=== PATIENT | female | born 1935 | race Caucasian/White ===

== ENCOUNTER 2019-05-14 14:13 | Outpatient (RCR) | payer SELFPAY ==
--- NOTE | 2019-01-22 08:52 | PCCPR ---
Pt will not be in attendance for ph3 01/22 or 01/25 due to having a cold and on a Z pack this week.
== END 2019-12-12 14:24 | disposition home or self-care (01) ==
LOC: ANHCPRIII 14:13
PROVIDERS: PCP Family Medicine; Visit Provider Internal Medicine Cardiovascular Disease
DX: Z95.2 Presence of prosthetic heart valve (principal); I48.20 Chronic atrial fibrillation, unspecified
CPT/HCPCS: 99199

== ENCOUNTER → 2019-10-11 13:21 | Outpatient (CLI) | payer MEDICARE, OTHER, SELFPAY ==
--- NOTE | ~2019-10-11 | MM_ITS ---
EXAMINATION: MM screening alexey BI w leonela HISTORY: Screening TECHNIQUE: Craniocaudal and mediolateral oblique 3-D tomosynthesis images were obtained and synthetic 2-D images were generated. CAD analysis was submitted and interpreted. COMPARISON: Comparison to multiple prior studies sequentially, with oldest reviewed study dated 03/15. BREAST PARENCHYMAL COMPOSITION: There are scattered areas of fibroglandular density. FINDINGS: There is no evidence of suspicious mass, calcification, or architectural distortion to sugg est malignancy in either breast. There has been no suspicious interval change. IMPRESSION: 1. No mammographic evidence of malignancy. 2. Recommend routine screening mammography in one year. BI-RADS Category 1: Negative Reviewed, dictated and finalized at location A.
== END ==
PROVIDERS: Visit Provider Obstetrics & Gynecology
DX: Z12.31 Encounter for screening mammogram for malignant neoplasm of breast (principal)
CPT/HCPCS: 77063; 77067

== ENCOUNTER 2020-03-24 13:30 | Outpatient (RCR) | payer MEDICARE, OTHER, SELFPAY ==
--- NOTE | 2020-03-23 13:18 | PC.NURSE ---
Spoke with patient about Bamlanivimab treatment and she has no questions about treatment. Patient's had treatment last week.
[2020-03-24] MEDS: diphenhydrAMINE HCl CAP 25 MG CAPSULE PO (13:33)
[2020-03-24] MEDS: FAMOTIDINE 20 MG TABLET PO (13:33)
[2020-03-24] MEDS: ACETAMINOPHEN 325 MG TABLET 650 MG PO (13:33)
[2020-03-24 14:33] VITALS: BP 94/49; PULSE 107; RESP 20; TEMP 37.7; O2SAT 93
--- NOTE | 2020-03-24 14:50 | PC.NURSE ---
1417 Spoke with patient's spouse about plan of care. Patient's is to take the patient directly to [facility] Emergency Room. Patient is to be evaluated at emergency room per Dr Estrada. Patient's spouse verbalized understanding. 1420 Patient's daughter was called. Voicemail was left to return a call to the [facility]. Patient requested that the daughter was notified. 1421 Report given to Joy Emergency Room RN. PIV left in patient's left hand (patient was a difficult stick). 1450 Patient was picked up by her spouse and going directly to Emergency Room
== END 2020-04-02 09:16 ==
LOC: AMCINF 13:30
PROVIDERS: PCP Family Medicine; Visit Provider Family Medicine
DX: U07.1 COVID-19 (principal); J12.82 Pneumonia due to coronavirus disease 2019; J93.9 Pneumothorax, unspecified; J96.01 Acute respiratory failure with hypoxia; I10 Essential (primary) hypertension; I48.91 Unspecified atrial fibrillation; E78.5 Hyperlipidemia, unspecified; R57.9 Shock, unspecified
CPT/HCPCS: 99203; 99213; A9270; G0463

== ENCOUNTER 2020-03-24 14:59 | Inpatient (IN) | payer MEDICARE, OTHER, SELFPAY ==
[2020-03-24] VITALS (7 sets, daily range): BP systolic 98–131; BP diastolic 48–72; PULSE 72–106; RESP 18–22; TEMP 36.3–36.9; O2SAT 68–95
--- NOTE | ~2020-03-24 | XR_ITS ---
EXAMINATION: XR chest 1V portable EXAM DATE: 04/01/2020 05:54 INDICATION: COVID-19 , acute hypoxic respiratory failure TECHNIQUE: Portable AP frontal chest x-ray was obtained. Comparison is made to prior examination from 03/31. FINDINGS: Endotracheal tube tip is 6 centimeters above the mars. There is a nasogastric tube seen with tip collimated off the study, but below the left hemidiaphragm. There is a right-sided PICC line with tip projecting over the cavoatrial junction. Moderate to large amount of bilateral infection and/or edema. Cardiac valve/stent. There are no siza ble pleural effusions. There is small right apical pneumothorax. The cardiomediastinal silhouette is prominent but magnified on this AP technique. The bones and soft tissues are unremarkable. Airspace disease not significantly changed. Difficult to determine change in the small right apical p neumothorax due to overlying sheets, equipment. IMPRESSION: 1. Small right apical pneumothorax. 2. Stable airspace disease and other findings as above. Reviewed, dictated and finalized at location A. S REPRESENTATIVE JEWELRY
--- NOTE | ~2020-03-24 | XR_ITS ---
EXAMINATION: XR abdomen NG/feed tube insert EXAM DATE: 03/28/2020 13:52 INDICATION: Orogastric tube insertion. TECHNIQUE: Frontal projection(s) of the abdomen for interpretation. Comparison is made to prior exami nation from 02/20/2015. FINDINGS: There is severe lumbar levoscoliosis. Feeding tube tip and side-port both project over dis tended gastric bubble, expected position. Extensive left-sided, moderate right basilar acute airspace disease. Distended stomach and colon, nonspecific bowel gas pattern. Patient had large amount of col onic stool and gas on previous examination IMPRESSION: 1. Feeding tube in position. 2. Distended stomach and colon, could be constipation. 3. Extensive airspace disease. Reviewed, dictated and finalized at location A. DROGENATION OPERATOR
--- NOTE | ~2020-03-24 | XR_ITS ---
EXAMINATION: XR chest 1V portable EXAM DATE: 04/03/2020 06:30 INDICATION: Acute respiratory failure, COVID-19 pneumonia. Pneumothorax. TECHNIQUE: Portable AP frontal chest x-ray was obtained. Comparison is made to prior examination from 04/02/2020. FINDINGS: Endotracheal tube tip is 6 centimeters above the mars. There is a nasogastric tube seen with tip collimated off the study, but below the left hemidiaphragm. There is a right-sided PICC line with tip projecting over the cavoatrial junction. Right-sided chest tube is in position with resolution of previously seen right pneumothorax. There is a small to moderate left-sided pneumothorax, pleural reflection identified and indicated. Moderate t o large amount of bilateral infection and/or edema. Cardiac valve/stent. There are no sizable pleura l effusions. The cardiomediastinal silhouette is prominent but magnified on this AP technique. Th e bones and soft tissues are unremarkable. Interval development of the left-sided pneumothorax compared to yesterday. The right-sided pneumothor ax has been treated with chest tube and is resolved. Airspace disease not significantly changed. IMPRESSION: 1. Development of small to moderate left pneumothorax. 2. Resolution of previously seen right pneumothorax following chest tube placement. 3. Extensive airspace disease and other findings as above. I discussed left-sided pneumothorax with ICU nurse Syed at 04/03/2020 06:57 LABOR ARBITRATOR. Reviewed, dictated and finalized at location A. R ARBITRATOR IMPRESSION: 1. Development of small to moderate left pneumothorax. 2. Resolution of previously seen right pneumothorax following chest tube place ment. 3. Extensive airspace disease and other findings as above. I discussed left-sided pneumothorax with ICU nurse Syed at 04/03/2020 06:57 LABOR ARBITRATOR .
--- NOTE | ~2020-03-24 | XR_ITS ---
EXAMINATION: XR chest 1V portable DATE: 03/31/2020 10:32 INDICATION: Right pneumothorax. TECHNIQUE: A single frontal view of the chest was obtained. COMPARISON: Chest single view at 5:23 AM FINDINGS: There are interstitial airspace opacities in all lung zones bilaterally with relative spari ng of right upper lobe. No pleural effusion. There is a small right pneumothorax. The heart size is n ormal. There are changes of aortic valve replacement. The endotracheal tube tip is 7.1 m above the ca nilesh. The nasogastric tube tip is beyond the inferior margin of the radiograph, but at least to the s tomach. A right upper extremity peripherally inserted central venous catheter (PICC) is seen with tip in the superior vena cava. IMPRESSION: 1. Stable small right pneumothorax. 2. Diffuse lung disease with improvement in right upper lobe, consistent with COVID-19 pneumonia vers us acute respiratory distress syndrome (ARDS). Reviewed, dictated and finalized at location A. DATA LEAD IMPRESSION: 1. Stable small right pneumothorax. 2. Diffuse lung disease with improvement in right upper lobe, consistent with C OVID-19 pneumonia versus acute respiratory distress syndrome (ARDS).
--- NOTE | ~2020-03-24 | XR_ITS ---
XR chest 1V portable DATE: 03/31/2020 17:15 INDICATION: Low oxygen saturation TECHNIQUE: Portable AP chest on 03/31/2020 at 1711 hours COMPARISON: 03/31/2020 portable AP chest at 1022 hours Serial radiographs dating back to 08/25/2015 FINDINGS: A nasogastric tube is present in the body of the stomach. Endotracheal tube is approximatel y 8.3 cm above mars; ideal range is 2-5 cm. PICC catheter tip overlies the superior vena cava. Status post aortic valve replacement. Cardiomegaly. Aortic calcification. There is leftward shift of the heart mediastinum consistent with volume loss of the left lung. There are extensive bilateral infiltrates throughout both lungs, except for relative sparing of the right u pper lung. The infiltrates are greatest in the lower lung zones. Infiltrates are increased since 03/28/2020 and 03/31/2020. No pleural effusion or pneumothorax is evident. IMPRESSION: Increased bilateral infiltrates since 03/31/2020, greatest in lower lungs. Differential di agnosis includes pulmonary edema, pneumonia. Reviewed, dictated and finalized at location A. AGE WINDER IMPRESSION: Increased bilateral infiltrates since 03/31/2020, greatest in lower lungs. Differential diagnosis includes pulmonary edema, pneumonia.
--- NOTE | ~2020-03-24 | XR_ITS ---
EXAMINATION: XR chest ET placement INDICATION: Endotracheal tube placement TECHNIQUE: Portable AP chest at 1333 hours COMPARISON: 03/28/2020 FINDINGS: An endotracheal tube has been inserted which ends 5.3 cm above the mars. The nasogastric tube has been inserted which is followed as far as the stomach. Its tip is beyond the inferior margin of the radiograph. Diffuse lung disease is unchanged. There is stable cardiomegaly. There are likely changes of endoluminal aortic valve replacement. IMPRESSION: 1. Endotracheal and nasogastric tube insertion, otherwise no significant change. Reviewed, dictated and finalized at location A. UNICATIONS ASSOCIATE IMPRESSION: 1. Endotracheal and nasogastric tube insertion, otherwise no significant change .
--- NOTE | ~2020-03-24 | XR_ITS ---
EXAMINATION: XR chest 1V portable INDICATION: Shortness of breath and cough TECHNIQUE: Portable AP chest at 1550 hours COMPARISON: 09/20/2017 FINDINGS: There are diffuse opacities throughout all lung zones, left greater than right. No pleural effusion or pneumothorax is identified. Cardiomegaly is noted. There appear to be changes of endolumi nal aortic valve replacement. There is no pneumothorax. IMPRESSION: 1. Diffuse lung disease, left worse than right, consistent with pneumonia and/or pulmonary edema. Reviewed, dictated and finalized at location A. PRINT CUTTER IMPRESSION: 1. Diffuse lung disease, left worse than right, consistent with pneumonia and/o r pulmonary edema.
--- NOTE | ~2020-03-24 | XR_ITS ---
EXAMINATION: XR chest-chest tube insert/pos DATE: 04/02/2020 14:39 INDICATION: Right pneumothorax status post chest tube placement. TECHNIQUE: A single frontal view of the chest was obtained on 2 radiographs. COMPARISON: Chest single view at 5:30 AM FINDINGS: The patient is rotated to her left. There is a diffuse interstitial pattern in the lungs. T here are airspace opacities in the mid and lower lung zones, worst at the left lung base. There is no pleural effusion. There is a small right pneumothorax. There is a right-sided chest tube with tip at the lung apex. The heart size is normal. There are changes of aortic valve replacement. The endotrac heal tube tip is 7.1 cm above the mars. A right upper extremity peripherally inserted central venou s catheter (PICC) is seen with tip in the superior vena cava. The nasogastric tube tip is in the stom ach. IMPRESSION: 1. Small right pneumothorax with improvement status post chest tube placement. 2. Diffuse lung disease with slight improvement, consistent with pulmonary edema versus pneumonia. Reviewed, dictated and finalized at location A. ING MACHINE OPERATOR HELPER IMPRESSION: 1. Small right pneumothorax with improvement status post chest tube placement. 2. Diffuse lung disease with slight improvement, consistent with pulmonary macy a versus pneumonia.
--- NOTE | ~2020-03-24 | XR_ITS ---
EXAMINATION: XR chest 1V portable INDICATION: COVID 19 pneumonia TECHNIQUE: Portable AP chest at 0515 hours COMPARISON: 03/27/2020 FINDINGS: Diffuse opacities throughout the left lung and opacities in the right mid and lower lung zo barrett persist without significant change. There is no pleural effusion or pneumothorax. Cardiomegaly is noted. There appear to be changes of endoluminal aortic valve replacement. IMPRESSION: 1. Stable diffuse lung disease, left worse than right, consistent with pneumonia and/or pulmonary leeroy ma and/or acute respiratory distress syndrome (ARDS). Reviewed, dictated and finalized at location A. ORT BAGGAGE SCREENER IMPRESSION: 1. Stable diffuse lung disease, left worse than right, consistent with pneumoni a and/or pulmonary edema and/or acute respiratory distress syndrome (ARDS).
--- NOTE | ~2020-03-24 | XR_ITS ---
EXAMINATION: XR chest PICC line EXAM DATE: 03/28/2020 15:42 INDICATION: PICC line placement. Pneumonia. TECHNIQUE: Portable AP frontal chest x-ray was obtained. Comparison is made to prior examination from 03/27. FINDINGS: Endotracheal tube tip is 5-6 centimeters above the mars. There is a nasogastric tube see n with tip collimated off the study, but below the left hemidiaphragm. There is a right-sided PICC li ne with tip projecting over the cavoatrial junction. There is extensive left-sided and moderate right basilar pneumonia and/or edema. Right upper lung zon e is relatively clear. The cardiomediastinal silhouette is prominent but magnified on this AP techniq ue. Cardiac valve replacement/stent. Mild hyperinflation. There is no pneumothorax suspected. Calcifi ed recess is excluded from exam. IMPRESSION: PICC line in position. Bilateral pneumonia or edema, extensive on the left. Reviewed, dictated and finalized at location A. TING DEMONSTRATOR IMPRESSION: PICC line in position. Bilateral pneumonia or edema, extensive on t he left.
--- NOTE | ~2020-03-24 | XR_ITS ---
EXAMINATION: XR chest-chest tube insert/pos EXAM DATE: 04/03/2020 11:13 INDICATION: Left chest tube insertion.Respiratory failure. COVID pneumonia. TECHNIQUE: Portable AP frontal chest x-ray was obtained. Comparison is made to prior examination from earlier 04/03. FINDINGS: Endotracheal tube tip is 6 centimeters above the mars. There is a nasogastric tube seen with tip collimated off the study, but below the left hemidiaphragm. There is a right-sided PICC line with tip projecting over the cavoatrial junction. There are bilateral chest tubes. Interval insertion of a left-sided chest tube with some redundancy but improvement in the left pneumo thorax which is now small, pleural reflection identified medially and inferiorly. Right-sided chest t ube is in position and no evidence of right pneumothorax. Moderate to large amount of bilateral infection and/or edema, not significantly changed. Cardiac valv e/stent. There are no sizable pleural effusions. The cardiomediastinal silhouette is prominent but magnified on this AP technique. There are no osteoblastic or osteolytic lesions identified. Airspace disease not significantly changed. IMPRESSION: 1. Improvement in left pneumothorax following chest tube insertion. 2. Extensive airspace disease and other findings as above. Reviewed, dictated and finalized at location A. EL POST OFFICER
--- NOTE | ~2020-03-24 | XR_ITS ---
EXAMINATION: XR chest 1V portable EXAM DATE: 03/30/2020 06:06 INDICATION: COVID-19 , acute hypoxic respiratory failure. TECHNIQUE: Portable AP frontal chest x-ray was obtained. Comparison is made to prior examination from 03/29/2020. FINDINGS: Endotracheal tube tip is 7 centimeters above the mars. This could be safely advanced 2 c m. There is a nasogastric tube seen with tip collimated off the study, but below the left hemidiaphra gm. There is a right-sided PICC line with tip projecting over the cavoatrial junction. Moderate to large amount of bilateral infection and/or edema. Cardiac valve/stent. There are no siza ble pleural effusions. There is no pneumothorax suspected. The cardiomediastinal silhouette is pr ominent but magnified on this AP technique. The bones and soft tissues are unremarkable. Moderate to large amount of airspace disease is unchanged. IMPRESSION: 1. Line and tube(s) in position. 2. Stable airspace disease and other findings as above. Reviewed, dictated and finalized at location A. HER TOGGLER
--- NOTE | ~2020-03-24 | XR_ITS ---
EXAMINATION: XR chest 1V portable INDICATION: Acute respiratory failure, COVID 19 pneumonia TECHNIQUE: Portable AP chest at 0511 hours COMPARISON: 03/28/2020 FINDINGS: The endotracheal tube ends approximately 7.0 cm above the mars. The nasogastric tube is f ollowed as far as the stomach. Its tip is beyond the inferior margin of the radiograph. A right upper extremity PICC ends with its tip at the superior cavoatrial junction. There are diffuse opacities th roughout all lung zones, left greater than right, which have not significantly changed. No definite p leural effusion or pneumothorax is identified. There is stable cardiomegaly. Changes of likely endolu david aortic valve replacement are noted. IMPRESSION: 1. Stable diffuse lung disease, consistent with pneumonia and/or pulmonary edema and/or acute respira tory distress syndrome (ARDS). Reviewed, dictated and finalized at location A. ER SET UP OPERATOR IMPRESSION: 1. Stable diffuse lung disease, consistent with pneumonia and/or pulmonary macy a and/or acute respiratory distress syndrome (ARDS).
--- NOTE | ~2020-03-24 | XR_ITS ---
EXAMINATION: XR chest 1V portable EXAM DATE: 03/26/2020 05:55 INDICATION: COVID pneumonia. TECHNIQUE: Portable AP frontal chest x-ray was obtained. Comparison is made to prior examination from 03/24/2020. FINDINGS: There is extensive left-sided and moderate right basilar pneumonia and/or edema. Right uppe r lung zone is relatively clear. The cardiomediastinal silhouette is prominent but magnified on this AP technique. Mild hyperinflation. There is no pneumothorax suspected. There are no pleural effusions . There are no suspicious marrow signal abnormalities. IMPRESSION: Bilateral pneumonia or edema, extensive on the left. Reviewed, dictated and finalized at location A. ENG
--- NOTE | ~2020-03-24 | XR_ITS ---
EXAMINATION: XR chest 1V portable EXAM DATE: 03/27/2020 05:58 INDICATION: COVID pneumonia TECHNIQUE: Portable AP frontal chest x-ray was obtained. Comparison is made to prior examination from 03/26, 03/24. FINDINGS: There is extensive left-sided and moderate right basilar pneumonia and/or edema. Right uppe r lung zone is relatively clear. The cardiomediastinal silhouette is prominent but magnified on this AP technique. Mild hyperinflation. There is no pneumothorax suspected. There are no pleural effusions . There are no osseous abnormalities identified. Accounting for differences in technique, there is no significant interval change. IMPRESSION: Bilateral pneumonia or edema, extensive on the left. Reviewed, dictated and finalized at location A. QUOTING OPERATOR
--- NOTE | ~2020-03-24 | XR_ITS ---
EXAMINATION: XR chest 1V portable EXAM DATE: 03/31/2020 06:21 INDICATION: COVID-19 , acute hypoxic respiratory failure. TECHNIQUE: Portable AP frontal chest x-ray was obtained. Comparison is made to prior examination from 03/30. FINDINGS: Endotracheal tube tip is 6 centimeters above the mars. There is a nasogastric tube seen with tip collimated off the study, but below the left hemidiaphragm. There is a right-sided PICC line with tip projecting over the cavoatrial junction. Moderate to large amount of bilateral infection and/or edema. Cardiac valve/stent. There are no siza ble pleural effusions. There is small right apical pneumothorax. The cardiomediastinal silhouette is prominent but magnified on this AP technique. The bones and soft tissues are unremarkable. Probable developing small right apical pneumothorax. Scattered IMPRESSION: 1. Probable developing small right apical pneumothorax. 2. Stable airspace disease and other findings as above. I spoke with ICU nurse Syed at 6:33 a.m., Dr. Maycol Robertson MD will be arriving momentarily. I recommended him reviewed the x-ray. Reviewed, dictated and finalized at location A. GAS AND PIPE TESTER IMPRESSION: 1. Probable developing small right apical pneumothorax. 2. Stable airspace disease and other findings as above. I spoke with ICU nurse Syed at 6:33 a.m., Dr. Maycol Robertson MD will be a rriving momentarily. I recommended him reviewed the x-ray.
--- NOTE | ~2020-03-24 | XR_ITS ---
EXAMINATION: XR chest 1V portable EXAM DATE: 04/02/2020 06:26 INDICATION: Acute respiratory failure, COVID-19 pneumonia. Pneumothorax. TECHNIQUE: Portable AP frontal chest x-ray was obtained. Comparison is made to prior examination from 04/01. FINDINGS: Endotracheal tube tip is 6 centimeters above the mars. There is a nasogastric tube seen with tip collimated off the study, but below the left hemidiaphragm. There is a right-sided PICC line with tip projecting over the cavoatrial junction. Small sized right-sided pneumothorax, pleural flexion now better visualized more laterally. Moderate to large amount of bilateral infection and/or edema. Cardiac valve/stent. There are no sizable pleur al effusions. The cardiomediastinal silhouette is prominent but magnified on this AP technique. T he bones and soft tissues are unremarkable. Airspace disease not significantly changed. Difficult to determine change in the size of right apical pneumothorax. IMPRESSION: 1. Small right apical pneumothorax. 2. Stable airspace disease and other findings as above. 3. Reviewed, dictated and finalized at location A. Y NUTRITION SPECIALIST
--- NOTE | 2020-03-24 15:21 | PC.NURSE ---
Pt was 88% on room air, this RN placed pt on O2 and she went to 94% .
--- NOTE | 2020-03-24 15:22 | ECG_ITS ---
Measurements Intervals [place] Rate: 92 P: TN: 0 QRS: 130 QRSD: 136 T: -32 QT: 345 QTc: 428 Interpretive Statements ATRIAL FIBRILLATION RIGHT BUNDLE BRANCH BLOCK LEFT POSTERIOR FASCICULAR BLOCK BASELINE ARTIFACT- I, II, III, AVR, AVL,A VF ABNORMAL ECG Electronically Signed On 03-24-2020 16:45:05 MUSIC VIDEO DIRECTOR by Fortino Alves D.O.
--- NOTE | 2020-03-24 15:29 | ED.GENADULT ---
HPI - General Adult General Chief complaint: Shortness of Breath/Dyspnea Stated complaint: Covid +, fever, Time Seen by Provider: 03/24/20 15:18 Source: patient History of Present Illness HPI narrative: Patient is a 84 y/o female complaining of SOB and cough for about 10 days. She states that her SOB is moderate and worsened by cough. She states that she has low grade fever at times. She denies any chest pain. She tested positive for COVID on 03/21/20. She was at infusion center today for scheduled Bamlanivimab infusion, but was sent to ED due to low pulse. Infusion was not given. Related Data Allergies Allergy/AdvReac Type Severity Reaction Status Date / Time aspirin Allergy Unknown Hives Verified 03/24/20 17:25 Review of Systems Constitutional: Constitutional: Denies chills, Reports fever(s), Denies headache(s) and Denies weakness Eyes: Eyes: Denies blurry vision ENT: Denies headache(s) and Denies neck pain Cardiovascular: Cardiovascular: Denies chest pain and Reports dyspnea Respiratory: Respiratory: Reports cough and Reports dyspnea Gastrointestinal: Gastrointestinal: Denies abdominal pain, Denies diarrhea, Denies nausea and Denies vomiting Genitourinary: Genitourinary: Denies hematuria and Denies dysuria Musculoskeletal: Musculoskeletal: Denies back pain and Denies neck pain Neurologic: Denies headache(s) and Denies weakness Exam Const: General: no acute distress and well developed Orientation/consciousness: oriented to person, oriented to place, oriented to time and patient oriented x3 HENMT: Head: normocephalic Ears: external ears normal General nose exam: Normal external nose present Eyes: General: appearance normal, both eyes and all related structures Conjunctivae: conjunctivae normal Neck: Neck: normal visual inspection and full ROM Chest: Chest palpation & inspection: normal inspection of the chest and no tenderness Resp: Effort & Inspection: normal respiratory effort Auscultation: clear to auscultation bilaterally Cardio: Rate: regular rate Rhythm: abnormal rhythm regularly irregular GI: GI Palp: No abdominal tenderness and Yes Soft to palpation Skin: General skin exam: normal color and turgor normal Neuro: General: oriented to person, oriented to place, oriented to time and patient oriented x3 Cognition (Neuro): normal cognition Extrem: General: normal to inspection, full ROM and no pedal edema Psych: Appearance: grossly normal Mental Status: mental status grossly normal Affect: normal affect Course Consultations Consultation #1: Discussed with HARDENING MACHINE OPERATOR HELPER Wendi, who agrees to admit. Date: 03/24/20 Time: 17:09 Vital Signs Vital signs: Vital Signs Temperature 36.9 C 03/24/20 15:20 Pulse Rate 106 H 03/24/20 15:20 Respiratory Rate 22 H 03/24/20 15:20 Blood Pressure 108/68 03/24/20 15:20 Pulse Oximetry 88 L 03/24/20 15:20 Temperature 36.9 C 03/24/20 15:20 Pulse Rate 91 03/24/20 18:18 Respiratory Rate 18 03/24/20 18:18 Blood Pressure 98/64 L 03/24/20 18:18 Pulse Oximetry 94 03/24/20 18:18 Medical Decision Making Vital Signs Vital Signs: Vital Signs Temperature 36.9 C 03/24/20 15:20 Pulse Rate 106 H 03/24/20 15:20 Respiratory Rate 22 H 03/24/20 15:20 Blood Pressure 108/68 03/24/20 15:20 Pulse Oximetry 88 L 03/24/20 15:20 Temperature 36.9 C 03/24/20 15:20 Pulse Rate 91 03/24/20 18:18 Respiratory Rate 18 03/24/20 18:18 Blood Pressure 98/64 L 03/24/20 18:18 Pulse Oximetry 94 03/24/20 18:18 Lab Data Result diagrams: 03/24/20 16:14 03/24/20 16:14 Labs: Lab Results 03/24/20 03/24/20 03/24/20 Range/Units 16:14 16:14 16:14 WBC 10.8 H (4.5-10.0) K/mm3 RBC 3.90 L (4.2-5.4) M/mm3 Hgb 12.0 (12.0-15.0) g/dL Hct 36.3 L (37.0-47.0) % MCV 93.1 (80-100) fl MCH 30.8 (26-34) pg MCHC 33.1 (32-36) g/dl RDW 13.7 (11.5-14.5) % Plt Count 117 L (150-375)
--- NOTE | 2020-03-24 15:44 | PC.NURSE ---
Called infusion center per Dr. Miner, per wanting to see what pt was doing there and if she received her infusion, and was told that they would have a nurse call me back.
--- NOTE | 2020-03-24 16:02 | PC.NURSE ---
Spoke with Mackenzie from infusion center and she states that pt was there to receive Bamlanivimab for COVID but since pt had low O2 pt was not able to receive it,
[2020-03-24 16:26] LABS: Hematocrit 36.3 % (37.0-47.0); Immature Platelet Fraction Pct 13.1 % (0.9-11.2); Mean Corpuscular HGB Conc 33.1 g/dl (32-36); Mean Corpuscular Hemoglobin 30.8 pg (26-34); Mean Corpuscular Volume 93.1 fl (80-100); Mean Platelet Volume 11.7 fl (7.4-10.4); Platelet Count Result 117 k/mm3 (150-375); Red Cell Distribution Width 13.7 % (11.5-14.5); White Blood Count 10.8 K/mm3 (4.5-10.0)
[2020-03-24 16:34] LABS: Band Neutrophils Percent 1 % (0-6); Lymphocytes Absolute Manual 0.75 K/mm3 (1.1-4.5); Monocytes Absolute Manual 1.29 K/mm3 (0.1-0.90); Monocytes Percent Manual 12 % (3-9); Neutrophils Absolute Manual 8.74 K/mm3 (1.7-7.2); Neutrophils Percent Manual 80 % (46-73); Total Cells Counted 100
[2020-03-24 16:36] LABS: Alanine Aminotransferase 30 U/L (4-35); Albumin Level 3.9 g/dL (3.5-5.1); Alkaline Phosphatase 66 U/L (38-126); Anion Gap 7 mmol/L (8-16); Aspartate Amino Transferase 55 U/L (14-36); Blood Urea Nitrogen 39 mg/dL (7-17); Calcium 9.4 mg/dL (8.4-10.2); Carbon Dioxide 28 mmol/L (22-30); Chloride 95 mmol/L (98-107); Estimated CRCL calculation 28 ml/min; Estimated Glomerular Filt Rate 43; Glucose 126 mg/dL (65-105); Potassium 4.2 mmol/L (3.4-5.0); Sodium 130 mmol/L (137-145)
[2020-03-24 16:45] LABS: NT Pro B Type Natriuretic Pept 4430 PG/ML (5-100)
[2020-03-24] MEDS: SODIUM CHLORIDE 0.9% IV 1,000 ML 999 ML IV CONT (17:01)
[2020-03-24] MEDS: DEXAMETHASONE SOD PHOS INJ 4 MG/ML VIAL 6 MG IV PUSH (17:02)
[2020-03-24] MEDS: REMDESIVIR 200 MG/NS 250 ML 200 MG/250 ML BAG 250 MG IVPB (17:21)
--- NOTE | 2020-03-24 18:11 | PC.NURSE ---
Called to give report on pt. Was told by Jun that nurse was in another room and will call me back/
--- NOTE | 2020-03-24 18:52 | ADMGEN ---
This patient, Millicent Castro, was admitted to [facility] Surg Room 322-01. Patient/family oriented to hospital policies and general routines including ID bracelet, bed and alarms, visiting hours, pain management, procedures, bathroom and other care routines, personal items, smoking policy, room service/diet, and visiting hours. Information on how to activate the Rapid Response Team has been discussed. Patient/Family are encouraged to report perceived risks to care and to ask questions if they do not understand what they are told or what they should do.
--- NOTE | 2020-03-24 20:43 | PM.IMHP ---
H&P: HPI History of Present Illness Date/Time: 03/24/20 20:43 Chief Complaint: shortness of breath Narrative: This is an 84 year old female with history of atrial fibrillation on chronic Eliquis therapy and previous TAVR in 2018 presented to the hospital with a complaint of shortness of breath, fatigue, a hacking cough for over a week now. Associated symptoms include intermittent fevers. The patient tested positive for COVID on 03/21/2020. She was at infusion center today for scheduled Bamlanivimab infusion, but was sent to ED due to low pulse. Infusion was not given. The patient was evaluated in the ER and was found to be hypoxic on room air. She was started on supplemental oxygen and we were asked to admit her to the hosptial for further care. On my encounter with her tonight she denies any palpitations or chest pain. ABG demonstrated hypoxemic respiratory failure. She has no other complaints. Review of Systems Review of Systems: All systems reviewed & are unremarkable except as noted in HPI and below PMFSH Past Medical History Medical History Atrial fibrillation Essential (primary) hypertension History of transcatheter aortic valve replacement (TAVR) Hyperlipidemia Family History Family History Mother Osteoporosis Social History Social History Smoking status: Never smoker Second hand tobacco smoke exposure: Yes Alcohol intake: never Substance use: never Gender identity (if verbalized by the patient): Female Sexual Orientation (if Verbalized by the Patient): Straight or Heterosexual Spiritual care concerns: No Comments Past surgical hx = TAVR in 2018 Meds Home Medications and Allergies Home Medications Medication Instructions Recorded Confirmed Type apixaban [Eliquis] 5 mg PO BID 03/25/20 03/25/20 History chlorhexidine gluconate 15 ml MUCOUS MEMBRANE TID 03/25/20 03/25/20 History codeine-guaifenesin [Virtussin AC] 5 ml PO Q1-4H 03/25/20 03/25/20 History irbesartan 150 mg PO DAILY 03/25/20 03/25/20 History levofloxacin 500 mg PO DAILY 03/25/20 03/25/20 History meclizine 25 mg PO PRN 03/25/20 03/25/20 History metoprolol succinate 150 mg PO DAILY 03/25/20 03/25/20 History prednisone 20 mg DAILY 03/25/20 03/25/20 History simvastatin 40 mg PO DAILY 03/25/20 03/25/20 History Allergies Allergy/AdvReac Type Severity Reaction Status Date / Time aspirin Allergy Unknown Hives Verified 03/24/20 17:25 Vital Signs Vital Signs - 24 hr 03/24/20 15:20 03/24/20 17:30 03/24/20 18:18 Temperature 36.9 C Pulse Rate 106 H 92 91 Respiratory Rate 22 H 19 18 Blood Pressure 108/68 106/48 L 98/64 L Pulse Oximetry 88 L 94 94 03/24/20 19:22 03/24/20 20:00 Temperature 36.3 C L 36.9 C Pulse Rate 72 94 Respiratory Rate 20 18 Blood Pressure 131/72 111/59 L Pulse Oximetry 95 90 Exam Const: General: cooperative, alert, awake and ill appearing Nutritional Appearance: well nourished Orientation/consciousness: oriented to person and oriented to place HENMT: Head: normal to inspection General nose exam: Normal external nose present Face and sinus: normal facial exam Mouth: Yes Normal oral and palatal mucosa present and Yes oropharynx normal Eyes: Pupils: Equal, round and reactive pupils present EOM: EOMs intact bilaterally Neck: Neck: supple and no JVD Thyroid: thyroid normal Lymphatic: lymphadenopathy not noted Resp: Effort & Inspection: tachypneic Auscultation: rales (bibasilar++ ) bilateral Cardio: Rate: tachycardic Rhythm: abnormal rhythm irregularly irregular Heart sounds: Murmur heart sound present systolic GI: Inspection: normal to inspection Auscultation: normal bowel sounds Skin: General skin exam: normal color and no rashes or lesions noted Neuro: General: oriented to person and oriented to place Cranial nerv
[2020-03-24 20:57] LABS: Alveolar/Arterial O2 Gradient 99.8 mmHg; Base Excess ABG -3.9 mEq/l (+/-2.0); Fractional Inspired Oxygen 28 %; HCO3 ABG 19.9 mEq/l (22.0-26.0); Oxygen Content ABG 15.6 %vol (16.0-22.0); Oxygen Saturation ABG 92.1 % (95.0-100.0); Oxyhemoglobin 90.3 % THb (90.0-100.0); PCO2 ABG 32.4 mmHg (35.0-45.0); PO2 ABG 61.6 mmHg (80.0-100.0); Total Hemoglobin 12.3 g/dL (12.0-18.0); pH ABG 7.407 (7.350-7.450)
[2020-03-24 20:58] LABS: Device NASAL CANNULA; Site Drawn RIGHT BRACHIAL
[2020-03-24] MEDS: ENOXAPARIN 40 MG/0.4 ML SYRINGE SUB-Q (22:10)
[2020-03-24] MEDS: guaiFENesin/DEXTROMETHORPHAN 10 ML UDC 5 ML PO (22:28)
[2020-03-25] VITALS (27 sets, daily range): BP systolic 90–120; BP diastolic 53–96; PULSE 54–118; RESP 18–28; TEMP 36.4–37.1; O2SAT 88–94; BMI 25.8
[2020-03-25] MEDS: ALBUTEROL SULFATE (*SP) AEROSOL 1 PUFF 2 PUFF INHALATION ×3 (04:40→17:49)
--- NOTE | 2020-03-25 05:22 | ECG_ITS ---
Measurements Intervals [place] Rate: 121 P: CA: 0 QRS: 148 QRSD: 130 T: -36 QT: 317 QTc: 451 Interpretive Statements ATRIAL FIBRILLATION WITH RAPID VENTRICULAR RESPONSE RIGHT BUNDLE BRANCH BLOCK LEFT POSTERIOR FASCICULAR BLOCK ABNORMAL ECG Electronically Signed On 03-25-2020 7:17:44 JOINT SUPERVISOR by Fortino Alves D.O.
[2020-03-25 06:02] LABS: Basophils Percent Auto 0.2 % (0.2-1.2); Hematocrit 37.6 % (37.0-47.0); Hemoglobin 12.5 g/dL (12.0-15.0); Immature Granulocyte Percent A 6.8 % (0-0.5); Immature Platelet Fraction Pct 12.1 % (0.9-11.2); Lymphocytes Absolute Auto 0.46 K/mm3 (0.9-3.2); Lymphocytes Percent Auto 4.5 % (18.3-44.2); Mean Corpuscular HGB Conc 33.2 g/dl (32-36); Mean Corpuscular Hemoglobin 31.1 pg (26-34); Mean Corpuscular Volume 93.5 fl (80-100); Mean Platelet Volume 11.5 fl (7.4-10.4); Monocytes Absolute Auto 2.3 K/mm3 (0.1-0.6); Monocytes Percent Auto 22.5 % (2.6-8.5); Neutrophils Absolute Auto 6.8 K/mm3 (1.3-6.7); Platelet Count Result 134 k/mm3 (150-375); Red Blood Count 4.02 M/mm3 (4.2-5.4); Red Cell Distribution Width 13.5 % (11.5-14.5); White Blood Count 10.3 K/mm3 (4.5-10.0)
[2020-03-25 06:11] LABS: Alanine Aminotransferase 32 U/L (4-35); Anion Gap 8 mmol/L (8-16); Blood Urea Nitrogen 31 mg/dL (7-17); Calcium 9.2 mg/dL (8.4-10.2); Carbon Dioxide 27 mmol/L (22-30); Chloride 100 mmol/L (98-107); Estimated CRCL calculation 36 ml/min; Estimated Glomerular Filt Rate 60; Glucose 129 mg/dL (65-105); Magnesium 1.6 mg/dL (1.6-2.3); Potassium 3.8 mmol/L (3.4-5.0); Sodium 135 mmol/L (137-145)
[2020-03-25 06:27] LABS: Troponin I 0.037 ng/mL (0.000-0.034)
--- NOTE | 2020-03-25 06:38 | PC.NURSE ---
On report, patient was said to have arrived 15 minutes ago. Admission information and med rec completed at approximately 0200. Patient stated that she had continuous SOB, increased on exertion. She had little response to O2, Dr. Navarrete called at 0353 to inform him that she had reached her limit on O2 per NC. On high flow O2 she continued to have SpO2 80-85%. Finally with a2-94% on 12 lpm with high flow and humidity. Dr Nam ordered Troponin, informed on critical high at 0629. She denied pain or changes in SOB except with exertion. Using a bedside commode to limit fatigue. She has no observed skin problems. Called at 0600 to ICU, patient being transferred for IMU status. A&O x3, plesant and cooperative.
--- NOTE | 2020-03-25 06:40 | ADMIMU ---
This patient, Millicent Castro, was admitted to IMU status, and placed in Intensive Care Unit-4. Patient/family oriented to hospital policies and general routines including ID bracelet, bed and alarms, visiting hours, pain management, procedures, bathroom and other care routines, personal items, smoking policy, room service/diet, and visiting hours. Valuables list has been completed. Information on how to activate the Rapid Response Team has been discussed. Patient/Family are encouraged to report perceived risks to care and to ask questions if they do not understand what they are told or what they should do.
[2020-03-25] MEDS: DEXAMETHASONE SOD PHOS INJ 4 MG/ML VIAL 6 MG IV PUSH (07:55)
[2020-03-25] MEDS: SIMVASTATIN 20 MG TABLET 40 MG PO (07:56)
[2020-03-25] MEDS: APIXABAN 5 MG TABLET PO ×2 (07:56→17:08)
[2020-03-25] MEDS: CHLORHEXIDINE GLUCONATE 0.12% ORAL RINSE 473 ML BTL (*BKC) 15 ML SWISH/SPIT ×3 (07:57→17:08)
[2020-03-25] MEDS: REMDESIVIR 100 MG/NS 250 ML 100 MG/250 ML BAG 250 MG IVPB (11:58)
--- NOTE | 2020-03-25 13:36 | PM.IMPN ---
Progress Note: A&P Assessment and Plan (1) Acute respiratory failure with hypoxia: Code(s): J96.01 - Acute respiratory failure with hypoxia Status: Acute Assessment and Plan: Continue supplemental oxygen. Patient currently on 12 L nasal cannula, if continues to desaturate or decompensates, will place patient on Airvo -maintain O2 sats greater than 92% (2) Pneumonia due to COVID-19 virus: Code(s): U07.1 - COVID-19; J12.82 - Pneumonia due to coronavirus disease 2019 Status: Acute Assessment and Plan: SARS-CoV-2 PCR positive on 03/21/2020 -patient has been started on dexamethasone and Remdesivir which was initiated on 03/25/2020 -will order 1 unit of convalescent plasma -continue airborne, contact and droplet isolation/precautions -will add vitamin-C, vitamin D, zinc supplement to enhance immunity -infectious disease consult to evaluate if patient is a candidate for Actemra from the Empacta trial (3) Essential (primary) hypertension: Code(s): I10 - Essential (primary) hypertension Status: Chronic Assessment and Plan: Blood pressure is borderline will continue to hold all antihypertensive (4) Atrial fibrillation: Qualifiers: Atrial fibrillation type: unspecified Qualified Code(s): I48.91 - Unspecified atrial fibrillation Code(s): I48.91 - Unspecified atrial fibrillation Status: Acute Assessment and Plan: Patient currently AFib, heart rates between 100-110 -continue to monitor at this time -on Eliquis (5) Hyperlipidemia: Qualifiers: Hyperlipidemia type: unspecified Qualified Code(s): E78.5 - Hyperlipidemia, unspecified Code(s): E78.5 - Hyperlipidemia, unspecified Status: Chronic Assessment and Plan: Continue simvastatin (6) DVT prophylaxis: Code(s): Z29.9 - Encounter for prophylactic measures, unspecified Status: Acute Assessment and Plan: Continue Eliquis Additional Plan Discussed with patient updated with her condition and plan of care. I answered all questions Code status full code Subjective Date/time seen: 03/25/20 13:36 Interval history: 84-year-old female presented to the ED with shortness of breath, fatigue, cough. Positive for COVID-19 on 03/21/2020. Patient was at the infusion center on 03/24 when she was scheduled for Bamlanivimab, but was sent to the ED due to low pulse rate. In the ER patient was found to be hypoxic on room air. 03/25/2020: Patient remains on 12 L nasal cannula adequate O2 sats. Patient denies any severe shortness of breath, chest pain, abdominal pain, nausea vomiting. He does complain of fatigue, malaise, loss of taste and loss of smell. Patient does use a Rollator walker at home Review of Systems Review of Systems: All systems reviewed & are unremarkable except as noted in HPI and below Exam Const: General: comfortable and no acute distress HENMT: Mouth: Yes moist mucous membranes Eyes: Sclera: sclerae normal Pupils: Equal, round and reactive pupils present Neck: Neck: supple Resp: Effort & Inspection: normal respiratory effort Auscultation: rales and diminished lung sounds Cardio: Rate: regular rate Rhythm: abnormal rhythm irregularly irregular GI: Inspection: non-distended GI Palp: Yes Soft to palpation and No Tenderness to palpation present (GI) Auscultation: normal bowel sounds Urinary Catheter: Urinary Catheter: urine clear Skin: General skin exam: normal color and no rashes or lesions noted Neuro: Other: Patient is awake, alert, oriented x3, nonfocal, answers to questions appropriately and moves all extremities to command Extrem: General: normal to inspection, edema and pedal edema Other: Trace edema Psych: Mental Status: mental status grossly normal Affect: normal affect Objective Data Vital Signs Vital Signs: Vital Signs - 24 hr 03/24/20 15:20 03/24/20 17:30 03/24/20 18:18 Temperature 98.4 F Pulse Ra
--- NOTE | 2020-03-25 14:27 | PCOTNOTE ---
Attempted OT evaluation, per RN, pt is currently receiving plasma and is unavailable for evaluation at this time. Will attempt in AM
--- NOTE | 2020-03-25 14:29 | PCPTNOTE ---
Attempted PT evaluation, per RN, pt is currently receiving plasma for the next 2-3 hours and is unavailable for evaluation at this time. Will attempt in AM.
[2020-03-25] MEDS: SODIUM CHLORIDE 0.9% IV 250 ML 30 ML IV CONT (14:30)
[2020-03-25] MEDS: guaiFENesin/DEXTROMETHORPHAN 10 ML UDC 5 ML PO (17:07)
[2020-03-25] MEDS: ACETAMINOPHEN 325 MG TABLET 650 MG PO (17:44)
[2020-03-25 18:58] LABS: Troponin I 0.025 ng/mL (0.000-0.034)
[2020-03-26] VITALS (14 sets, daily range): BP systolic 90–112; BP diastolic 53–77; PULSE 91–117; RESP 21–30; TEMP 36.1–37.1; O2SAT 89–95
[2020-03-26] MEDS: ALBUTEROL SULFATE (*SP) AEROSOL 1 PUFF 2 PUFF INHALATION ×5 (03:00→21:38)
[2020-03-26] MEDS: guaiFENesin/DEXTROMETHORPHAN 10 ML UDC 5 ML PO ×5 (03:23→21:38)
[2020-03-26 05:04] LABS: Hematocrit 35.8 % (37.0-47.0); Hemoglobin 11.9 g/dL (12.0-15.0); Mean Corpuscular HGB Conc 33.2 g/dl (32-36); Mean Corpuscular Hemoglobin 30.8 pg (26-34); Mean Corpuscular Volume 92.7 fl (80-100); Mean Platelet Volume 11.6 fl (7.4-10.4); Platelet Count Result 147 k/mm3 (150-375); Red Blood Count 3.86 M/mm3 (4.2-5.4); Red Cell Distribution Width 13.7 % (11.5-14.5); White Blood Count 7.7 K/mm3 (4.5-10.0)
[2020-03-26 05:32] LABS: Alanine Aminotransferase 33 U/L (4-35); Albumin Level 3.3 g/dL (3.5-5.1); Alkaline Phosphatase 63 U/L (38-126); Anion Gap 5 mmol/L (8-16); Aspartate Amino Transferase 49 U/L (14-36); Bilirubin,Total 0.6 mg/dL (0.2-1.3); Blood Urea Nitrogen 32 mg/dL (7-17); Calcium 8.9 mg/dL (8.4-10.2); Carbon Dioxide 27 mmol/L (22-30); Chloride 104 mmol/L (98-107); Estimated CRCL calculation 40 ml/min; Estimated Glomerular Filt Rate > 60; Glucose 155 mg/dL (65-105); Magnesium 1.8 mg/dL (1.6-2.3); Phosphorus 2.5 mg/dL (2.5-4.5); Potassium 3.4 mmol/L (3.4-5.0); Sodium 136 mmol/L (137-145)
[2020-03-26 05:58] LABS: Band Neutrophils Percent 9 % (0-6); Lymphocytes Absolute Manual 0.92 K/mm3 (1.1-4.5); Monocytes Percent Manual 17 % (3-9); Neutrophils Absolute Manual 5.46 K/mm3 (1.7-7.2); Neutrophils Percent Manual 62 % (46-73); Platelet Estimate Adequate (Adequate); Total Cells Counted 100
--- NOTE | 2020-03-26 08:22 | PCPTNOTE ---
Attempted PT evaluation this AM, spoke with RN and patient not able to participate with evaluation at this time secondary to increased O2 needs, will check back this afternoon to see if status changes.
--- NOTE | 2020-03-26 09:09 | PCOTNOTE ---
Attempted OT evaluation this AM, spoke with RN and patient not able to participate with evaluation at this time secondary to increased O2 needs, will check back this afternoon to see if status changes.
[2020-03-26] MEDS: DEXAMETHASONE SOD PHOS INJ 4 MG/ML VIAL 6 MG IV PUSH (09:43)
[2020-03-26] MEDS: SIMVASTATIN 20 MG TABLET 40 MG PO (09:47)
[2020-03-26] MEDS: APIXABAN 5 MG TABLET PO ×2 (09:47→17:31)
[2020-03-26] MEDS: CHOLECALCIFEROL 1,000 UNITS TABLET 1000 UNITS PO (09:48)
[2020-03-26] MEDS: CHLORHEXIDINE GLUCONATE 0.12% ORAL RINSE 473 ML BTL (*BKC) 15 ML SWISH/SPIT ×3 (09:48→17:31)
[2020-03-26] MEDS: ASCORBIC ACID 500 MG TABLET 1000 MG PO (09:48)
[2020-03-26] MEDS: ZINC SULFATE 220 MG CAPSULE PO (09:48)
--- NOTE | 2020-03-26 09:59 | PM.IMPN ---
Progress Note: A&P Assessment and Plan (1) Acute respiratory failure with hypoxia: Code(s): J96.01 - Acute respiratory failure with hypoxia Status: Acute Assessment and Plan: Secondary to COVID-19. Continue supplemental oxygen. Continue to wean O2 as toerlated. Continue treatment for COVID-19 pneumonia. RT assess and treat. (2) Pneumonia due to COVID-19 virus: Code(s): U07.1 - COVID-19; J12.82 - Pneumonia due to coronavirus disease 2019 Status: Acute Assessment and Plan: COVID-19 positive on 03/21/20. Continue droplet isolation. Dexamethasone started 03/24. Continue Remdesivir started 03/24. Continue bronchodilators (3) Atrial fibrillation: Qualifiers: Atrial fibrillation type: unspecified Qualified Code(s): I48.91 - Unspecified atrial fibrillation Code(s): I48.91 - Unspecified atrial fibrillation Status: Acute Assessment and Plan: Patietn with chronic AFib. HR controlled. BP soft so metoprolol held. Resume as needed. Continue Eliquis for stroke prophylaxis. (4) Essential (primary) hypertension: Code(s): I10 - Essential (primary) hypertension Status: Chronic Assessment and Plan: BP reviewed on 03/26. BP soft at times. Monitor blood pressure. Contnue to hold home antihypertensives and resume when appropriate. (5) Hyperlipidemia: Qualifiers: Hyperlipidemia type: unspecified Qualified Code(s): E78.5 - Hyperlipidemia, unspecified Code(s): E78.5 - Hyperlipidemia, unspecified Status: Chronic Assessment and Plan: LFTs okay. Continue simvastatin PO. Subjective Date/time seen: 03/26/20 09:59 Interval history: Date of service 03/26 84-year-old female presented to the ED with shortness of breath, fatigue, cough. Positive for COVID-19 on 03/21/2020. Patient was at the infusion center on 03/24 when she was scheduled for Bamlanivimab, but was sent to the ED due to low pulse rate. In the ER patient was found to be hypoxic on room air. No issues overnight. Now requiring more O2 so transferred to the ICU status. She states her SOB is better. No CP or abd pain. COugh improved. No n/v. +diarrhea. Exam Narrative: Exam Narrative: AF 97.0 108/56 99 21 94% HFNC and NRB Gen - mildly tachypneic with conversation Chest - inspiratory rhonchi L>R posteriorly CV - RRR S1/S2; telemetry showing no significant dysrhythmias Abd - Soft, NT/ND, Positive BS Ext - No pedal edema Psych - Nml mood and affect Skin - Warm and dry Objective Data Vital Signs Vital Signs: Vital Signs - 24 hr 03/25/20 10:00 03/25/20 11:56 03/25/20 12:00 Temperature Pulse Rate 96 102 H Respiratory Rate 22 H Blood Pressure 95/62 L Pulse Oximetry 90 90 03/25/20 13:00 03/25/20 13:53 03/25/20 14:00 Temperature 97.6 F Pulse Rate 100 100 Respiratory Rate 26 H Blood Pressure 95/61 L Pulse Oximetry 92 93 03/25/20 14:18 03/25/20 14:34 03/25/20 15:00 Temperature 97.6 F 97.8 F Pulse Rate 108 H 111 H 101 H Respiratory Rate 22 H 28 H Blood Pressure 95/61 L 95/61 L Pulse Oximetry 91 92 03/25/20 16:00 03/25/20 17:00 03/25/20 18:00 Temperature Pulse Rate 95 100 Respiratory Rate 21 H Blood Pressure 98/67 L Pulse Oximetry 90 94 03/25/20 19:00 03/25/20 20:00 03/25/20 20:52 Temperature 98.7 F Pulse Rate 110 H 99 Respiratory Rate 25 H Blood Pressure 94/53 L Pulse Oximetry 93 03/25/20 21:00 03/25/20 23:00 03/26/20 00:00 Temperature 98.3 F Pulse Rate 94 94 98 Respiratory Rate 24 H Blood Pressure 97/62 L Pulse Oximetry 93 03/26/20 02:00 03/26/20 04:00 03/26/20 06:00 Temperature 97.2 F L Pulse Rate 98 103 H 108 H Respiratory Rate 27 H Blood Pressure 108/56 L Pulse Oximetry 93 03/26/20 08:00 Temperature 97.0 F L Pulse Rate 99 Respiratory Rate 21 H Blood Pressure 108/56 L Pulse Oximetry 94 Intake/Output Intake/Output: Inta
--- NOTE | 2020-03-26 11:00 | PCDIET ---
ICU Rounding Note: Patient ate about 33% of meals yesterday. Per RN, primarily took Ensure Compact at breakfast. Recommend higher kcal, higher protein Ensure Enlive (350kcal, 20g protein) TID with meals instead of Compact until ability to eat better is improved. Last recorded weight is 70.45kg. Recommend obtaining new weight. Bowel Motility: BM x 1 on 03/25/20. Labs Reviewed: Hgb (11.9), Hct (35.8), Glu (155), BUN (32), Na (136) Meds Noted: Albuterol, Vitamin C, Decadron, Remdesivir, Zocor, Vitamin D, Zinc Sulfate Additional Notes: No documented skin breakdown. Following daily in ICU rounds. Assessing/reassessing every 3 days.
--- NOTE | 2020-03-26 11:59 | WPDCNINT ---
Assessment and Plan Assessment and plan (1) Acute respiratory failure with hypoxia: Code(s): J96.01 - Acute respiratory failure with hypoxia Status: Acute Assessment and Plan: Continue supplemental oxygen. Currently on Airvo 95% FiO2 and 60 L flow rate with 100% non-rebreather. -discussed with patient regarding intubation, she is agreeable, she states she does not want to and wants to be with her -maintain O2 sats greater than 92% (2) Pneumonia due to COVID-19 virus: Code(s): U07.1 - COVID-19; J12.82 - Pneumonia due to coronavirus disease 2018 Status: Acute Assessment and Plan: SARS-CoV-2 PCR positive on 03/21/2020 -patient has been started on dexamethasone and Remdesivir which was initiated on 03/25/2020 -received 1 unit of convalescent plasma on 03/25/2020 -continue airborne, contact and droplet isolation/precautions -will add vitamin-C, vitamin D, zinc supplement to enhance immunity -infectious disease consult to evaluate if patient is a candidate for Actemra from the Empacta trial (3) Essential (primary) hypertension: Code(s): I10 - Essential (primary) hypertension Status: Chronic Assessment and Plan: Blood pressure is borderline will continue to hold all antihypertensive (4) Atrial fibrillation: Qualifiers: Atrial fibrillation type: unspecified Qualified Code(s): I48.91 - Unspecified atrial fibrillation Code(s): I48.91 - Unspecified atrial fibrillation Status: Acute Assessment and Plan: Patient currently AFib, heart rates between 90-100 -continue to monitor at this time -continue Eliquis (5) Hyperlipidemia: Qualifiers: Hyperlipidemia type: unspecified Qualified Code(s): E78.5 - Hyperlipidemia, unspecified Code(s): E78.5 - Hyperlipidemia, unspecified Status: Chronic Assessment and Plan: Continue simvastatin (6) DVT prophylaxis: Code(s): Z29.9 - Encounter for prophylactic measures, unspecified Status: Acute Assessment and Plan: Continue Eliquis Additional Plan Discussed with patient updated with her condition and plan of care. I answered all questions. Discussed with patient regarding intubation if the time arises, she agrees intubation and requests to be a full code at this time Code status: Full code Critical care time spent: 45 minutes Adjunct English Instructor Consult Note Consult date: 03/26/20 Time Seen: 07:05 Reason for consult: Acute hypoxemic respiratory failure, COVID-19 pneumonia, atrial fibrillation HPI: Millicent Castro is a 84 year old female with past medical history of atrial fibrillation on Eliquis, essential hypertension, TAVR, hyperlipidemia presented the ED on 03/24/2020 with complains of shortness of breath, fevers, fatigue and hacking cough for a week prior to admission. Patient states that she had intermittent fevers, was tested positive for COVID-19 on 03/21/2020. On the day of admission she was scheduled to receive Bamlanivimab infusion but was sent to the ED due to low pulse. The ED patient was hypoxic on room air, was placed on flow nasal cannula. Patient was sent to IMU for further management. 03/26/2020: Overnight patient has increased patient requirements and now on Airvo 95% FiO2 with% non-rebreather. Does desaturate with activity, coughing. Patient denies any chest pain, abdominal pain, nausea vomiting. Complain of loss of smell and taste. Positive bowel movement. Hemodynamically stable with adequate urine output Review of Systems Review of Systems: All systems reviewed & are unremarkable except as noted in HPI and below PMFSH Past Medical History Medical History (Updated 03/25/20 @ 13:42 by Maycol Robertson MD) Atrial fibrillation Essential (primary) hypertension History of transcatheter aortic valve replacement (TAVR) Hyperlipidemia Family History Family History (Updated 03/25/20 @ 06:01 by Kameron Reyes MD) Mother Osteopor
[2020-03-26] MEDS: REMDESIVIR 100 MG/NS 250 ML 100 MG/250 ML BAG 250 MG IVPB (12:17)
--- NOTE | 2020-03-26 13:13 | PCPTNOTE ---
Attempted PT eval. Spoke W/ Kiran COREY. Hold PT due to increased O2 needs. Will try again tomorrow.
--- NOTE | 2020-03-26 13:49 | PCOTNOTE ---
Attempted OT evaluation. Per RN hold Occupational therapy for today due to increased O2 needs at this time. Will attempt in AM.
--- NOTE | 2020-03-26 15:11 | WPDINFPN2 ---
Progress Note: A&P Assessment and Plan (1) Pneumonia due to COVID-19 virus: Code(s): U07.1 - COVID-19; J12.82 - Pneumonia due to coronavirus disease 2019 Status: Acute Additional Plan 1. Dyspnea due to CoVid 19 pneumonia, symptom onset ~03/11, test 03/21. 2. 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 REC Dexamethasone # 3 / 10 days. No benefit from remdesivir nor monoclonal antibody nor tocilizumab. Subjective Date/time seen: 03/26/20 15:11 Objective Data Vital Signs Vital Signs: Vital Signs - 24 hr 03/25/20 16:00 03/25/20 17:00 03/25/20 18:00 Temperature Pulse Rate 95 100 Respiratory Rate 21 H Blood Pressure 98/67 L Pulse Oximetry 90 94 03/25/20 19:00 03/25/20 20:00 03/25/20 20:52 Temperature 37.1 C Pulse Rate 110 H 99 Respiratory Rate 25 H Blood Pressure 94/53 L Pulse Oximetry 93 03/25/20 21:00 03/25/20 23:00 03/26/20 00:00 Temperature 36.8 C Pulse Rate 94 94 98 Respiratory Rate 24 H Blood Pressure 97/62 L Pulse Oximetry 93 03/26/20 02:00 03/26/20 04:00 03/26/20 06:00 Temperature 36.2 C L Pulse Rate 98 103 H 108 H Respiratory Rate 27 H Blood Pressure 108/56 L Pulse Oximetry 93 03/26/20 08:00 03/26/20 08:15 03/26/20 10:00 Temperature 36.1 C L Pulse Rate 99 106 H 108 H Respiratory Rate 21 H 21 H 21 H Blood Pressure 108/56 L 107/70 Pulse Oximetry 94 92 89 L 03/26/20 12:00 03/26/20 14:00 Temperature 36.5 C Pulse Rate 94 108 H Respiratory Rate 25 H 30 H Blood Pressure 98/66 L 106/77 Pulse Oximetry 93 91 Intake/Output Intake/Output: Intake & Output 03/23/20 03/24/20 03/25/20 03/26/20 23:59 23:59 23:59 23:59 Intake Total 1250 1005 400 Balance 1250 1005 400 Meds/Results Medications: Active Medications Generic Name Dose Route Start Last Admin Trade Name Freq PRN Reason Stop Dose Admin Acetaminophen 650 mg 03/24/20 17:09 03/25/20 17:44 Acetaminophen 325 Mg Tablet PO 650 mg Q4H PRN Administration Mild Pain (1-3) or Fever Albuterol 2 puff 03/25/20 02:00 03/26/20 08:15 Albuterol Sulfate (*Sp) Aerosol 1 Puff INHALATION 2 puff Q6HRT FARHAD Administration Albuterol 2 puff 03/24/20 20:52 Albuterol Sulfate (*Sp) Aerosol 1 Puff INHALATION Q6HRT PRN Shortness Of Breath Apixaban 5 mg 03/25/20 09:00 03/26/20 09:47 Apixaban 5 Mg Tablet PO 5 mg BID FARHAD Administration Ascorbic Acid 1,000 mg 03/26/20 09:00 03/26/20 09:48 Ascorbic Acid 500 Mg Tablet PO 1,000 mg DAILY FARHAD Administration Chlorhexidine Gluconate 15 ml 03/25/20 09:00 03/26/20 12:37 Chlorhexidine Gluconate 0.12% Oral Rinse 473 Ml Btl (*Bkc) SWISH/SPIT 15 ml TID FARHAD Administration Dexamethasone Sodium Phosphate 6 mg 03/25/20 09:00 03/26/20 09:43 Dexamethasone Sod Phos Inj 4 Mg/Ml Vial IV PUSH 04/03/20 09:01 6 mg DAILY FARHAD Administration Guaifenesin/Dextromethorphan 5 ml 03/26/20 13:00 03/26/20 12:37 Guaifenesin/Dextromethorphan 10 Ml Udc PO 5 ml Q4HR FARHAD Administration Meclizine HCl 25 mg 03/25/20 05:20 Meclizine Hcl 25 Mg Tablet PO PRN FARHAD Simvastatin 40 mg 03/25/20 09:00 03/26/20 09:47 Simvastatin 20 Mg Tablet PO 40 mg DAILY FARHAD Administration Vitamin D 1,000 units 03/26/20 09:00 03/26/20 09:48 Cholecalciferol 1,000 Units Tablet PO 1,000 units DAILY FARHAD Administration Zinc Sulfate 220 mg 03/26/20 09:00 03/26/20 09:48 Zinc Sulfate 220 Mg Capsule PO 220 mg QAM FARHAD Administration Radiology Results: ITS Impressions Chest X-Ray 03/26/20 06:31 IMPRESSION: Bilateral pneumonia or edema, extensive on the left. Labs Labs: Laboratory Results - last 24 hr 03/25/20 03/26/20 03/26/20 18:28 04:50 04:50 WBC 7.7 RBC 3.86 L Hgb 11.9 L Hct 35.8 L MCV 92.7 MCH 30.8 MCHC 33.2 RDW 13.7 Plt Count 147 L MPV 11.6 H Immature Gran % (Auto) Not Reportable Neut % (Auto) Not Reportable Lymph % (Auto) Not
[2020-03-26] MEDS: ACETAMINOPHEN 325 MG TABLET 650 MG PO (18:38)
--- NOTE | 2020-03-26 20:10 | CONS_ITS ---
DATE OF CONSULTATION: REASON FOR CONSULTATION: Coronavirus infection. HISTORY OF PRESENT ILLNESS: An 84-year-old female, who had a TAVR in January 2019 without incident. She is on anticoagulation long-term, also on prednisone. She has home medication list including levofloxacin, but denies to me any antibacterial use in the last 4 weeks for any purpose. She has had no previous positive testing for Coronavirus. She began feeling ill about the same time as her on March 11. Her symptoms included raspy throat, cough, and fatigue. She also had noted some dyspnea on exertion such as climbing stairs, though she thinks this symptom was relatively mild only in that she adjusted her level of activity to compensate. She denies any shortness of breath at rest until the day of admission. Both she and her monitored symptoms and eventually presented for a Coronavirus test on March 21, 3 days before admission. Both were positive. She is unaware of how her is doing. Both presented to [facility] for monoclonal antibody, but the patient then developed shortness of breath and low blood pressure. Very soon after the infusion was started, the latter was discontinued. She was sent to the emergency room. Here, she was hypoxemic, has been admitted. She has been given dexamethasone, remdesivir, and consultation requested. Her cough persists. No sputum production. No ill household contacts otherwise. ALLERGIES: ASPIRIN. MEDICATIONS: Present medication list reviewed. No other immunosuppressants. HABITS: No tobacco. No alcohol. PAST MEDICAL HISTORY: In addition to above, AF, hyperlipidemia, hypertension, and osteoporosis. REVIEW OF SYSTEMS: Easy bruisability. Gallagher catheter placed this morning due to dyspnea on exertion. 14-point review otherwise negative. FAMILY HISTORY: Not pertinent to her present illness. SOCIAL HISTORY: , retired, lives locally customarily sees Dr. Estrada. PHYSICAL EXAMINATION: GENERAL: This is an elderly female, who appears her actual age, has mild respiratory distress. VITAL SIGNS: Afebrile, pulse 108, respirations 30, blood pressure 106/77, oxygen saturation 91% on high-flow nasal cannula. SKIN: Ecchymoses. No rashes. Warm and dry. EENT: Pupils equal, round, and reactive to light. Oropharynx, oral mucosa clear, though dry mucous membranes. No paranasal sinus erythema, edema, tenderness. NECK: No masses, meningismus, stridor. LUNGS: Bilateral rales. No wheezing. No rhonchi. Clear to percussion. Breath sounds are vesicular. CHEST: Equal expansion. Normal AP diameter. No indwelling intravascular devices evident. CARDIAC: Tachycardic. Grade 1/6 systolic murmur, left sternal border. No heaves. PMI is not displaced. Murmur does not radiate into the carotids. ABDOMEN: Nontender, soft. No organomegaly. No masses. : Gallagher catheter is draining clear yellow urine. EXTREMITIES: No clubbing, cyanosis, edema. No venous varicosities. NEUROLOGIC: Awake, alert, oriented, appropriate. LABORATORY DATA: White blood cell count on admission 10.8, 7.7 today, hemoglobin 11.9, platelets are 147. Earlier differential showed a left shift. Blood gases from arrival 7.41, 32, 62, and that is on 2 L. She has mild hyponatremia, which is nearly corrected. BUN 32, creatinine 0.8, glucose 155. Her liver function tests normal other than high AST. BNP 4430, albumin 3.3, and Coronavirus assay on 03/21 as noted. RADIOLOGY: Chest x-ray, bilateral lung infiltrates, more extensive on the left. ASSESSMENT: 1. Dyspnea and hypoxemia due to Coronavirus viral pneumonia. Other causes less likely including bacterial pneumonia, heart failure, valvular dysfunction, upper respiratory tract infection or mo
--- NOTE | 2020-03-26 20:42 | PC.NURSE ---
Spoke with Dr. Robertson. Okay to place patient on bipap tonight, start at 10/5. May titrate for 450 or greater TV.
[2020-03-27] VITALS (27 sets, daily range): BP systolic 97–115; BP diastolic 51–75; PULSE 86–125; RESP 18–36; TEMP 35.6–37.2; O2SAT 87–100
[2020-03-27] MEDS: guaiFENesin/DEXTROMETHORPHAN 10 ML UDC 5 ML PO ×5 (01:32→20:42)
[2020-03-27] MEDS: ALBUTEROL SULFATE (*SP) AEROSOL 1 PUFF 2 PUFF INHALATION (01:32)
[2020-03-27] MEDS: ZINC SULFATE 220 MG CAPSULE PO (09:06)
[2020-03-27] MEDS: ASCORBIC ACID 500 MG TABLET 1000 MG PO (09:06)
[2020-03-27] MEDS: APIXABAN 5 MG TABLET PO ×2 (09:06→17:16)
[2020-03-27] MEDS: SIMVASTATIN 20 MG TABLET 40 MG PO (09:06)
[2020-03-27] MEDS: CHLORHEXIDINE GLUCONATE 0.12% ORAL RINSE 473 ML BTL (*BKC) 15 ML SWISH/SPIT ×3 (09:08→17:16)
[2020-03-27] MEDS: CHOLECALCIFEROL 1,000 UNITS TABLET 1000 UNITS PO (09:08)
--- NOTE | 2020-03-27 11:15 | PCDIET ---
Nutrition Follow-Up Complete: Nutrition Diagnosis: Predicted suboptimal oral intake related to decreased appetite as evidenced by RN reports, patient reporting poor appetite/weight loss on admission. Nutrition Goal: Patient to consume 75% of meals/supplements or greater. Goal in progress. Patient with limited intake on heart healthy diet, but has been taking Ensure Enlive (350kcal, 20g protein) which is being provided TID. Last recorded weight is 70.45 kg. Recommend obtaining new weight. Bowel Motility: BM x 1 today. Labs Reviewed: No new BMP. Meds Noted: Albuterol, Decadron, Vitamin C, Zocor, Vitamin D, Zinc Sulfate, Lasix Additional Notes: No documented skin breakdown. Patient requiring bipap. Will continue to monitor with same goal. Nutrition Monitoring and Evaluation: Follow up in 3 days.
[2020-03-27] MEDS: FUROSEMIDE INJ 40 MG/4 ML VIAL 20 MG IV PUSH (12:02)
[2020-03-27] MEDS: METOPROLOL TARTRATE 25 MG TABLET PO ×2 (12:03→20:43)
--- NOTE | 2020-03-27 12:22 | WPDINTPN ---
Progress Note: A&P Assessment and Plan (1) Acute respiratory failure with hypoxia: Code(s): J96.01 - Acute respiratory failure with hypoxia Status: Acute Assessment and Plan: Continue supplemental oxygen. Currently on on BiPAP, 100% FiO2, patient is intermittently switched to Airvo with 100% non-rebreather.. -discussed with patient regarding intubation, she is agreeable, she states she does not want to and wants to be with her -maintain O2 sats greater than 92% (2) Pneumonia due to COVID-19 virus: Code(s): U07.1 - COVID-19; J12.82 - Pneumonia due to coronavirus disease 2019 Status: Acute Assessment and Plan: SARS-CoV-2 PCR positive on 03/21/2020 -patient has been started on dexamethasone which was initiated on 03/25/2020 -infectious disease discontinued Remdesivir has no benefit -received 1 unit of convalescent plasma on 03/25/2020 -continue airborne, contact and droplet isolation/precautions -will add vitamin-C, vitamin D, zinc supplement to enhance immunity (3) Essential (primary) hypertension: Code(s): I10 - Essential (primary) hypertension Status: Chronic Assessment and Plan: Blood pressure is borderline will continue to hold all antihypertensive (4) Atrial fibrillation: Qualifiers: Atrial fibrillation type: unspecified Qualified Code(s): I48.91 - Unspecified atrial fibrillation Code(s): I48.91 - Unspecified atrial fibrillation Status: Acute Assessment and Plan: Patient currently AFib, heart rates between 90-100 -continue to monitor at this time -continue Eliquis (5) Hyperlipidemia: Qualifiers: Hyperlipidemia type: unspecified Qualified Code(s): E78.5 - Hyperlipidemia, unspecified Code(s): E78.5 - Hyperlipidemia, unspecified Status: Chronic Assessment and Plan: Continue simvastatin (6) DVT prophylaxis: Code(s): Z29.9 - Encounter for prophylactic measures, unspecified Status: Acute Assessment and Plan: Continue Eliquis Additional Plan Discussed with patient updated with her condition and plan of care. I answered all questions. Discussed with patient regarding intubation if the time arises, she agrees intubation and requests to be a full code at this time Code status: Full code Critical care time spent: 32 minutes Subjective Date/time seen: 03/27/20 12:22 Interval history: 84-year-old female presented to the ED with shortness of breath, fatigue, cough. Positive for COVID-19 on 03/21/2020. Patient was at the infusion center on 03/24 when she was scheduled for Bamlanivimab, but was sent to the ED due to low pulse rate. In the ER patient was found to be hypoxic on room air. 03/27/2020: Patient on BiPAP, 100% FiO2. Adequate urine output, has been on and off high-flow therapy with 100% non-rebreather. Is better, shortness of breath with exertion. Denies any chest pain, abdominal pain, nausea vomiting. Still has some fatigue and malaise with loss of taste and smell. Patient is hemodynamically stable. Does drop her O2 sats with exertion. Review of Systems Review of Systems: All systems reviewed & are unremarkable except as noted in HPI and below Exam Const: General: comfortable and no acute distress HENMT: Mouth: Yes moist mucous membranes Other: Airvo and 100% non-rebreather Eyes: Sclera: sclerae normal Pupils: Equal, round and reactive pupils present Neck: Neck: supple Resp: Effort & Inspection: normal respiratory effort Auscultation: rales and diminished lung sounds Cardio: Rate: regular rate Rhythm: abnormal rhythm irregularly irregular GI: Inspection: non-distended GI Palp: Yes Soft to palpation and No Tenderness to palpation present (GI) Auscultation: normal bowel sounds : Other: Gallagher catheter in place Urinary Catheter: Urinary Catheter: patent and draining and urine clear Skin: General skin exam: normal color and no rashes or
[2020-03-27 12:41] LABS: Basophils Absolute Auto 0.1 K/mm3 (0.0-0.1); Basophils Percent Auto 0.4 % (0.2-1.2); Hematocrit 40.7 % (37.0-47.0); Hemoglobin 13.4 g/dL (12.0-15.0); Immature Granulocyte Absolute 1.48 K/mm3 (0.00-0.031); Immature Granulocyte Percent A 7.5 % (0-0.5); Lymphocytes Absolute Auto 0.57 K/mm3 (0.9-3.2); Lymphocytes Percent Auto 2.9 % (18.3-44.2); Mean Corpuscular HGB Conc 32.9 g/dl (32-36); Mean Corpuscular Hemoglobin 29.7 pg (26-34); Mean Corpuscular Volume 90.2 fl (80-100); Mean Platelet Volume 11.3 fl (7.4-10.4); Monocytes Absolute Auto 4.8 K/mm3 (0.1-0.6); Monocytes Percent Auto 24.2 % (2.6-8.5); Neutrophils Absolute Auto 12.9 K/mm3 (1.3-6.7); Platelet Count Result 174 k/mm3 (150-375); Red Blood Count 4.51 M/mm3 (4.2-5.4); Red Cell Distribution Width 13.5 % (11.5-14.5); White Blood Count 19.9 K/mm3 (4.5-10.0)
[2020-03-27 13:17] LABS: Alanine Aminotransferase 47 U/L (4-35); Albumin Level 3.6 g/dL (3.5-5.1); Anion Gap 3 mmol/L (8-16); Blood Urea Nitrogen 33 mg/dL (7-17); Calcium 9.4 mg/dL (8.4-10.2); Carbon Dioxide 36 mmol/L (22-30); Chloride 102 mmol/L (98-107); Estimated CRCL calculation 46 ml/min; Estimated Glomerular Filt Rate > 60; Glucose 134 mg/dL (65-105); Magnesium 1.9 mg/dL (1.6-2.3); Phosphorus 2.1 mg/dL (2.5-4.5); Potassium 3.3 mmol/L (3.4-5.0); Sodium 141 mmol/L (137-145)
--- NOTE | 2020-03-27 14:19 | WPDINFPN2 ---
Progress Note: A&P Assessment and Plan (1) Pneumonia due to COVID-19 virus: Code(s): U07.1 - COVID-19; J12.82 - Pneumonia due to coronavirus disease 2019 Status: Acute Additional Plan 1. Dyspnea due to CoVid 19 pneumonia, symptom onset ~03/11, test 03/21. Mildly worsened respiratory failure, now on PPV 2. 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 3. Leukocytosis, due to # 1 and due to steroid REC Dexamethasone # 4 / 10 days. No benefit from remdesivir nor monoclonal antibody nor tocilizumab. Follow wbc over time. Subjective Date/time seen: 03/27/20 14:19 Interval history: on bipap, some sore throat Exam Narrative: Exam Narrative: afebrile Const: General: no acute distress Resp: Auscultation: clear to auscultation bilaterally, no rales, no rhonchi and no wheezes Other: mild labored respirations Cardio: Rate: regular rate Rhythm: regular rhythm Heart sounds: no gallops and no murmurs GI: Inspection: non-distended GI Palp: Yes Soft to palpation and No Tenderness to palpation present (GI) Skin: General skin exam: no rashes or lesions noted Objective Data Vital Signs Vital Signs: Vital Signs - 24 hr 03/26/20 16:00 03/26/20 18:00 03/26/20 20:00 Temperature 37.1 C 36.3 C L Pulse Rate 115 H 104 H 117 H Respiratory Rate 26 H 23 H 26 H Blood Pressure 95/55 L 97/53 L 112/59 L Pulse Oximetry 92 91 91 03/26/20 22:00 03/27/20 00:00 03/27/20 02:00 Temperature 36.6 C Pulse Rate 105 H 97 105 H Respiratory Rate 27 H 25 H 18 Blood Pressure 90/66 L 104/69 105/64 Pulse Oximetry 95 95 91 03/27/20 02:23 03/27/20 04:00 03/27/20 06:00 Temperature Pulse Rate 106 H 106 H 90 Respiratory Rate 26 H 18 22 H Blood Pressure 108/67 104/64 Pulse Oximetry 94 92 90 03/27/20 08:00 03/27/20 09:15 03/27/20 09:25 Temperature 35.7 C L Pulse Rate 99 Respiratory Rate 24 H Blood Pressure 115/73 Pulse Oximetry 90 91 93 03/27/20 09:45 03/27/20 09:56 03/27/20 10:00 Temperature Pulse Rate 125 H 106 H 105 H Respiratory Rate 25 H 26 H 27 H Blood Pressure 108/54 L Pulse Oximetry 87 L 100 94 03/27/20 11:10 03/27/20 12:00 03/27/20 12:03 Temperature 35.6 C L Pulse Rate 107 H 108 H 106 H Respiratory Rate 24 H 27 H Blood Pressure 101/62 Pulse Oximetry 97 95 03/27/20 13:00 Temperature Pulse Rate 106 H Respiratory Rate 27 H Blood Pressure Pulse Oximetry 95 Intake/Output Intake/Output: Intake & Output 03/24/20 03/25/20 03/26/20 03/27/20 23:59 23:59 23:59 23:59 Intake Total 1250 1005 1640 360 Output Total 600 450 Balance 1250 1005 1040 -90 Meds/Results Medications: Active Medications Generic Name Dose Route Start Last Admin Trade Name Freq PRN Reason Stop Dose Admin Acetaminophen 650 mg 03/24/20 17:09 03/26/20 18:38 Acetaminophen 325 Mg Tablet PO 650 mg Q4H PRN Administration Mild Pain (1-3) or Fever Albuterol 2 puff 03/25/20 02:00 03/27/20 01:32 Albuterol Sulfate (*Sp) Aerosol 1 Puff INHALATION 2 puff Q6HRT FARHAD Administration Albuterol 2 puff 03/24/20 20:52 Albuterol Sulfate (*Sp) Aerosol 1 Puff INHALATION Q6HRT PRN Shortness Of Breath Apixaban 5 mg 03/25/20 09:00 03/27/20 09:06 Apixaban 5 Mg Tablet PO 5 mg BID FARHAD Administration Ascorbic Acid 1,000 mg 03/26/20 09:00 03/27/20 09:06 Ascorbic Acid 500 Mg Tablet PO 1,000 mg DAILY FARHAD Administration Chlorhexidine Gluconate 15 ml 03/25/20 09:00 03/27/20 09:08 Chlorhexidine Gluconate 0.12% Oral Rinse 473 Ml Btl (*Bkc) SWISH/SPIT 15 ml TID FARHAD Administration Dexamethasone Sodium Phosphate 6 mg 03/25/20 09:00 03/27/20 09:07 Dexamethasone Sod Phos Inj 4 Mg/Ml Vial IV PUSH 04/03/20 09:01 6 mg DAILY FARHAD Administration Guaifenesin/Dextromethorphan 5 ml 03/26/20 13:00 03/27/20 09:13 Guaifenesin/Dextromethorphan 10 Ml Udc PO Not Given Q4HR FARHAD Meclizine HCl 25 mg 03/25/20 05:20 Meclizine Hcl 25 Mg Tablet PO PRN FARHAD Metoprolol
--- NOTE | 2020-03-27 19:28 | PM.IMPN ---
Progress Note: A&P Assessment and Plan (1) Acute respiratory failure with hypoxia: Code(s): J96.01 - Acute respiratory failure with hypoxia Status: Acute Assessment and Plan: Secondary to COVID-19. Continue supplemental oxygen. Continue to wean O2 as tolerated. Continue treatment for COVID-19 pneumonia. RT assess and treat. (2) Pneumonia due to COVID-19 virus: Code(s): U07.1 - COVID-19; J12.82 - Pneumonia due to coronavirus disease 2019 Status: Acute Assessment and Plan: COVID-19 positive on 03/21/20. Continue droplet isolation. Dexamethasone started 03/24. Remdesivir stopped after 3 doses. Continue bronchodilators (3) Atrial fibrillation: Qualifiers: Atrial fibrillation type: unspecified Qualified Code(s): I48.91 - Unspecified atrial fibrillation Code(s): I48.91 - Unspecified atrial fibrillation Status: Acute Assessment and Plan: Patient with chronic AFib. Metoprolol resumed. HR controlled. Continue Eliquis for stroke prophylaxis. (4) Essential (primary) hypertension: Code(s): I10 - Essential (primary) hypertension Status: Chronic Assessment and Plan: BP reviewed on 03/27. BP soft at times. Monitor blood pressure. (5) Hyperlipidemia: Qualifiers: Hyperlipidemia type: unspecified Qualified Code(s): E78.5 - Hyperlipidemia, unspecified Code(s): E78.5 - Hyperlipidemia, unspecified Status: Chronic Assessment and Plan: LFTs okay. Continue simvastatin PO. Subjective Date/time seen: 03/27/20 19:28 Interval history: Date of service 03/27 84-year-old female presented to the ED with shortness of breath, fatigue, cough. Positive for COVID-19 on 03/21/2020. Patient was at the infusion center on 03/24 when she was scheduled for Bamlanivimab, but was sent to the ED due to low pulse rate. In the ER patient was found to be hypoxic on room air. Patient was on BiPAP all day today. Unable to wean off BiPAP. Was able to tolerate being up to the chair. Takiing in Ensure shakes. No CP. Feels her SOB is better overall. Exam Narrative: Exam Narrative: AF 98.3 97/59 110 28 92% BiPAP Gen - NARD, appears comfortable Chest - inspiratory rhonchi L>R CV - tachycardic to 105 Abd - Soft, NT/ND, Positive BS - Gallagher secured draining clear yellow urine Ext - No pedal edema Psych - Nml mood and affect Skin - Warm and dry Objective Data Vital Signs Vital Signs: Vital Signs - 24 hr 03/26/20 20:00 03/26/20 22:00 03/27/20 00:00 Temperature 97.3 F L Pulse Rate 117 H 105 H 97 Respiratory Rate 26 H 27 H 25 H Blood Pressure 112/59 L 90/66 L 104/69 Pulse Oximetry 91 95 95 03/27/20 02:00 03/27/20 02:23 03/27/20 04:00 Temperature 97.8 F Pulse Rate 105 H 106 H 106 H Respiratory Rate 18 26 H 18 Blood Pressure 105/64 108/67 Pulse Oximetry 91 94 92 03/27/20 06:00 03/27/20 08:00 03/27/20 09:15 Temperature 96.2 F L Pulse Rate 90 99 Respiratory Rate 22 H 24 H Blood Pressure 104/64 115/73 Pulse Oximetry 90 90 91 03/27/20 09:25 03/27/20 09:45 03/27/20 09:56 Temperature Pulse Rate 125 H 106 H Respiratory Rate 25 H 26 H Blood Pressure Pulse Oximetry 93 87 L 100 03/27/20 10:00 03/27/20 11:10 03/27/20 12:00 Temperature 96.1 F L Pulse Rate 105 H 107 H 108 H Respiratory Rate 27 H 24 H 27 H Blood Pressure 108/54 L 101/62 Pulse Oximetry 94 97 95 03/27/20 12:03 03/27/20 13:00 03/27/20 13:45 Temperature Pulse Rate 106 H 106 H 95 Respiratory Rate 27 H 36 H Blood Pressure Pulse Oximetry 95 96 03/27/20 14:00 03/27/20 16:00 03/27/20 17:00 Temperature 98.3 F Pulse Rate 95 104 H 104 H Respiratory Rate 22 H 26 H 26 H Blood Pressure 107/75 97/59 L Pulse Oximetry 97 96 96 03/27/20 17:25 Temperature Pulse Rate 110 H Respiratory Rate 28 H Blood Pressure Pulse Oximetry 92 Intake/Output Intake/Output: Intake & Output 03/24/20
[2020-03-27] MEDS: ACETAMINOPHEN 325 MG TABLET 650 MG PO (20:41)
[2020-03-28] VITALS (36 sets, daily range): BP systolic 68–127; BP diastolic 42–73; PULSE 85–178; RESP 20–45; TEMP 35.8–37.4; O2SAT 77–95
[2020-03-28] MEDS: guaiFENesin/DEXTROMETHORPHAN 10 ML UDC 5 ML PO (01:00)
[2020-03-28] MEDS: IPRATROPIUM BR 0.02% INH SOLN 0.5 MG/2.5 ML VIAL INHALATION ×2 (02:58→08:30)
[2020-03-28 06:04] LABS: Alveolar/Arterial O2 Gradient 619.7 mmHg; Base Excess ABG 3.7 mEq/l (+/-2.0); Carboxyhemoglobin 0.1 % THb (0-2.0); Fractional Inspired Oxygen 100 %; HCO3 ABG 28.1 mEq/l (22.0-26.0); Methemoglobin ABG 0.3 %THb (0-1.5); Oxygen Content ABG 16.9 %vol (16.0-22.0); Oxygen Saturation ABG 87.7 % (95.0-100.0); Oxyhemoglobin 87.7 % THb (90.0-100.0); PO2 ABG 51.3 mmHg (80.0-100.0); PO2 FiO2 Ratio Arterial Blood 0.51 %; Reduced Hemoglobin 11.9 %THb (0-5.0); Total Hemoglobin 13.7 g/dL (12.0-18.0); pH ABG 7.444 (7.350-7.450)
[2020-03-28 06:05] LABS: Site Drawn RIGHT BRACHIAL
[2020-03-28 06:06] LABS: Device NON-INVASIVE VENT; Expiratory Pressure 6 cmH2O
[2020-03-28 06:07] LABS: Inspiratory Pressure 8 cmH2O
[2020-03-28 06:22] LABS: Hematocrit 40.1 % (37.0-47.0); Hemoglobin 13.3 g/dL (12.0-15.0); Mean Corpuscular HGB Conc 33.2 g/dl (32-36); Mean Corpuscular Hemoglobin 30.5 pg (26-34); Mean Platelet Volume 11.4 fl (7.4-10.4); Platelet Count Result 154 k/mm3 (150-375); Red Blood Count 4.36 M/mm3 (4.2-5.4); Red Cell Distribution Width 13.4 % (11.5-14.5); White Blood Count 16.1 K/mm3 (4.5-10.0)
[2020-03-28 06:32] LABS: D Dimer 3.77 ug/mL (<0.48)
[2020-03-28 06:48] LABS: Alanine Aminotransferase 42 U/L (4-35); Albumin Level 3.4 g/dL (3.5-5.1); Alkaline Phosphatase 76 U/L (38-126); Anion Gap 5 mmol/L (8-16); Aspartate Amino Transferase 53 U/L (14-36); Bilirubin,Total 0.9 mg/dL (0.2-1.3); Blood Urea Nitrogen 33 mg/dL (7-17); CRP 7.6 mg/dL (<1.0); Calcium 9.4 mg/dL (8.4-10.2); Carbon Dioxide 35 mmol/L (22-30); Chloride 101 mmol/L (98-107); Estimated CRCL calculation 52 ml/min; Estimated Glomerular Filt Rate > 60; Glucose 110 mg/dL (65-105); Lactate Dehydrogenase 1793 U/L (313-618); Magnesium 1.8 mg/dL (1.6-2.3); Phosphorus 2.5 mg/dL (2.5-4.5); Potassium 3.6 mmol/L (3.4-5.0); Sodium 141 mmol/L (137-145)
[2020-03-28] MEDS: DEXAMETHASONE SOD PHOS INJ 4 MG/ML VIAL 6 MG IV PUSH (09:00)
--- NOTE | 2020-03-28 09:00 | PC.NURSE ---
Reviewed plan of care with patient. Discussed intubation process, and patient care for ventilated patients.CPR
--- NOTE | 2020-03-28 09:50 | PC.NURSE ---
Updated son, Frantz, on plan of care. Discussed with son that patient verbalized to MD and RN not to be intubated. Son stated 'whatever mom wants I am ok with . Son to discuss plan of care with patient's daughter.
[2020-03-28] MEDS: MORPHINE SULFATE (*CRX) 2 MG/ML INJ IV PUSH (10:20)
--- NOTE | 2020-03-28 10:25 | PC.NURSE ---
Reviewed plan of care with daughter via telephone.Daughter requesting to speak to her mother. Discussed patient currently on BiPaP and staff will have to switch to nasal cannula so patient can talk via telephone.
[2020-03-28] MEDS: LORazepam INJ (*CRX) 2 MG/ML VIAL 0.25 MG IV PUSH (11:22)
--- NOTE | 2020-03-28 11:32 | PC.NURSE ---
Patient on the telephone discussing her decision for comfort care.
--- NOTE | 2020-03-28 11:50 | PC.NURSE ---
Dr. Robertson to bedside, patient requesting intubation after speaking to daughter.
[2020-03-28] MEDS: SODIUM CHLORIDE 0.9% IV 1,000 ML 999 ML IV CONT (12:30)
[2020-03-28] MEDS: FENTANYL 2,500MCG/NS250ML(*CRX 2,500 MCG/250 ML BAG IV CONT (13:00)
--- NOTE | 2020-03-28 13:10 | PC.NURSE ---
Dr. Robertson updated daughter on new plan of care.
--- NOTE | 2020-03-28 13:43 | WPDINTPN ---
Progress Note: A&P Assessment and Plan (1) Acute respiratory failure with hypoxia: Code(s): J96.01 - Acute respiratory failure with hypoxia Status: Acute Assessment and Plan: Patient failed Airvo and BiPAP with 100% FiO2 -on 03/28/2020: Patient was desaturating in the 70s and 80s on 100% BiPAP. Discussed with patient regarding intubation and placement on mechanical ventilation, she did not want to be intubated and placed on mechanical ventilation and wanted to be made comfort measures. After talking to her daughter Edwige on the phone, patient changed her mind and wanted to be intubated and placed on mechanical ventilation. Also discussed at length with Edwige, the daughter, and she wanted her mother to get the last chance. -intubation was uneventful on 03/28/2020 -currently on 100% FiO2, peep of 12 -patient sedated with fentanyl and Versed infusion (2) Pneumonia due to COVID-19 virus: Code(s): U07.1 - COVID-19; J12.82 - Pneumonia due to coronavirus disease 2019 Status: Acute Assessment and Plan: SARS-CoV-2 PCR positive on 03/21/2020 -patient has been started on dexamethasone which was initiated on 03/25/2020 -infectious disease discontinued Remdesivir has no benefit -received 1 unit of convalescent plasma on 03/25/2020 -continue airborne, contact and droplet isolation/precautions -will add vitamin-C, vitamin D, zinc supplement to enhance immunity (3) Essential (primary) hypertension: Code(s): I10 - Essential (primary) hypertension Status: Chronic Assessment and Plan: Blood pressure is borderline will continue to hold all antihypertensive (4) Atrial fibrillation: Qualifiers: Atrial fibrillation type: unspecified Qualified Code(s): I48.91 - Unspecified atrial fibrillation Code(s): I48.91 - Unspecified atrial fibrillation Status: Acute Assessment and Plan: Patient went into AFib RVR, blood pressures have been stable -continue to monitor at this time -continue Eliquis (5) Hyperlipidemia: Qualifiers: Hyperlipidemia type: unspecified Qualified Code(s): E78.5 - Hyperlipidemia, unspecified Code(s): E78.5 - Hyperlipidemia, unspecified Status: Chronic Assessment and Plan: Continue simvastatin (6) DVT prophylaxis: Code(s): Z29.9 - Encounter for prophylactic measures, unspecified Status: Acute Assessment and Plan: Continue Eliquis Additional Plan Discussed with patient, and her daughter Edwige Iqbal, on multiple occasions today. The daughter stated that she has discussed with patient's , they requested to make her DNR post intubation. I I discussed with the daughter pre intubation and post intubation and updated her with all the details. I answered all questions. Code status: DNR Critical care time spent: 44 minutes Subjective Date/time seen: 03/28/20 13:43 Interval history: 84-year-old female presented to the ED with shortness of breath, fatigue, cough. Positive for COVID-19 on 03/21/2020. Patient was at the infusion center on 03/24 when she was scheduled for Bamlanivimab, but was sent to the ED due to low pulse rate. In the ER patient was found to be hypoxic on room air. 03/28/2020: Patient remains on BiPAP, 100% FiO2. Patient has been desaturating in the 70s and 80s. I had a long talk with the and also the bedside RN Kiran discussed with her at length he did not want to be intubated or placed on the mechanical ventilator. I further discussed with her daughter Edwige wanted to talk to the patient. After she spoke to the patient, the patient wanted to be intubated placed on mechanical ventilation. I went ahead and intubated the patient, intubation was uneventful. Placed on 100% FiO2, peep of 12. Blood pressures initially dropped post intubation, was unable to place a central line in the neck, as a was unable to thread the vein. Blood pressures improved after fluid bolus. Systo
[2020-03-28] MEDS: METOPROLOL TARTRATE INJ 5 MG/5 ML VIAL IV PUSH (13:48)
--- NOTE | 2020-03-28 13:51 | WPDPROCEDUR ---
Procedures Intubation Intubation Date: 03/28/20 Intubation Time: 11:53 A pre-procedural Time-Out was completed immediately before starting the procedure and confirmed: Patient Identification, Site, Procedure, Patient Position and the Availability of Requisite Equipment: Yes Sedative: etomidate Paralytic: rocuronium Laryngoscope: fiber optic video scope Assist device used: fiber optic device ET tube size: 7 Tube secured depth (cm): 23 Tube secured location: lips Tube placement confirmation: visualized tube passing through cords, equal breath sounds bilaterally, no breath sounds over epigastrium and confirmation by capnometry Patient tolerated procedure: well Intubation complications: none
[2020-03-28 13:54] LABS: Alveolar/Arterial O2 Gradient 590.6 mmHg; Base Excess ABG 1.4 mEq/l (+/-2.0); Fractional Inspired Oxygen 100 %; HCO3 ABG 29.9 mEq/l (22.0-26.0); Oxygen Content ABG 17.4 %vol (16.0-22.0); Oxyhemoglobin 86.6 % THb (90.0-100.0); PO2 ABG 57.7 mmHg (80.0-100.0); PO2 FiO2 Ratio Arterial Blood 0.58 %; Total Hemoglobin 14.3 g/dL (12.0-18.0)
[2020-03-28 13:55] LABS: pH ABG 7.282 (7.350-7.450)
[2020-03-28 13:56] LABS: Oxygen Saturation ABG 85.8 % (95.0-100.0); PCO2 ABG 64.7 mmHg (35.0-45.0); Site Drawn LEFT RADIAL
[2020-03-28 13:57] LABS: Device VENTILATOR; Modified Allen's Test Pass
[2020-03-28 13:58] LABS: Arterial Blood Gas PEEP 12 cmH2O; Arterial Blood Gas Tidal Volume 350 ml; Arterial Blood Gas Vent Mode CMV; Arterial Blood Gas Ventilator rate 26 /MIN
--- NOTE | 2020-03-28 14:10 | PCOTNOTE ---
Per RN, patient intubated and RN will be discharging from therapy services as they are inappropriate at this time. Will begin plan of care again after re-evaluation if appropriate.
[2020-03-28] MEDS: EPOPROSTENOL SODIUM 0.5 MG VIAL 1 MG INHALATION ×2 (14:24→22:05)
[2020-03-28] MEDS: LIDOCAINE HCL 1% PF INJ 5 ML VIAL INFILTRATE (15:10)
[2020-03-28] MEDS: NOREPINEPHRINE 8 MG/D5W 250 ML 8 MG/250 ML BAG 9.38 MG IV CONT (15:14)
[2020-03-28] MEDS: AMIODARONE 150 MG/D5W 100 ML 150 MG/100 ML BAG 600 MG IV CONT (15:42)
[2020-03-28] MEDS: AMIODARONE 360 MG/D5W 200 ML 360 MG/200 ML BAG 33.33 MG IV CONT (15:43)
[2020-03-28 17:14] LABS: Base Excess ABG 0.3 mEq/l (+/-2.0); Device VENTILATOR; Fractional Inspired Oxygen 100 %; HCO3 ABG 27.2 mEq/l (22.0-26.0); Modified Allen's Test Pass; Oxygen Content ABG 23.4 %vol (16.0-22.0); Oxygen Saturation ABG 91.7 % (95.0-100.0); Oxyhemoglobin 92.2 % THb (90.0-100.0); PCO2 ABG 51.9 mmHg (35.0-45.0); PO2 ABG 66.1 mmHg (80.0-100.0); PO2 FiO2 Ratio Arterial Blood 0.66 %; Site Drawn LEFT RADIAL; Total Hemoglobin 18.1 g/dL (12.0-18.0); pH ABG 7.338 (7.350-7.450)
[2020-03-28 17:15] LABS: Arterial Blood Gas PEEP 12 cmH2O; Arterial Blood Gas Tidal Volume 350 ml; Arterial Blood Gas Vent Mode CMV; Arterial Blood Gas Ventilator rate 26 /MIN
--- NOTE | 2020-03-28 17:29 | PM.IMPN ---
Progress Note: A&P Assessment and Plan (1) Acute respiratory failure with hypoxia: Code(s): J96.01 - Acute respiratory failure with hypoxia Status: Acute Assessment and Plan: Secondary to COVID-19. Patient's condition has progressed requiring intubation. Wean as tolerated. Continue treatment for COVID-19 pneumonia. RT assess and treat. Appreciate testing director input. (2) Shock: Code(s): R57.9 - Shock, unspecified Status: Acute Assessment and Plan: BP soft but has worsened today requiring Levophed. [place] related to sepsis from COVID PNA; consider hypovolemia but doubt cardiogenic. BP better. Wean Levophed off as tolerated. (3) Pneumonia due to COVID-19 virus: Code(s): U07.1 - COVID-19; J12.82 - Pneumonia due to coronavirus disease 2019 Status: Acute Assessment and Plan: COVID-19 positive on 03/21/20. Dexamethasone started 03/24. Remdesivir stopped after 3 doses. Continue bronchodilators. Continue droplet isolation. (4) Atrial fibrillation: Qualifiers: Atrial fibrillation type: unspecified Qualified Code(s): I48.91 - Unspecified atrial fibrillation Code(s): I48.91 - Unspecified atrial fibrillation Status: Acute Assessment and Plan: Pat[place]n with chronic AFib. HR poorly controlled and Amio started; HR better controlled now. BP soft so metoprolol held. Resume whena ble. Continue Eliquis for stroke prophylaxis. (5) Essential (primary) hypertension: Code(s): I10 - Essential (primary) hypertension Status: Chronic Assessment and Plan: As above. (6) Hyperlipidemia: Qualifiers: Hyperlipidemia type: unspecified Qualified Code(s): E78.5 - Hyperlipidemia, unspecified Code(s): E78.5 - Hyperlipidemia, unspecified Status: Chronic Assessment and Plan: LFTs okay. Continue simvastatin PO. (7) DVT prophylaxis: Code(s): Z29.9 - Encounter for prophylactic measures, unspecified Status: Acute Assessment and Plan: Eliquis Subjective Date/time seen: 03/28/20 17:29 Interval history: Date of service 03/28 84-year-old female presented to the ED with shortness of breath, fatigue, cough. Positive for COVID-19 on 03/21/2020. Patient was at the infusion center on 03/24 when she was scheduled for Bamlanivimab, but was sent to the ED due to low pulse rate. In the ER patient was found to be hypoxic on room air. Patient was more hypoxic today in the 70's. Patient initially did not want to be intubated. End of life discussion but dtr wanted to patient to be intubated and patient agreed. Patient ultimately intubated. Review of Systems Review of Systems: ROS unobtainable: Yes unobtainable due to endotracheal tube Exam Narrative: Exam Narrative: AF 98.3 91/56 105 29 90% MV Gen - intubated and sedated Chest - mildly coarse BS anteriorly CV - mildly tachycardic with tele showing AFib, PVCs. Abd - Soft, ND - Gallagher secured draining clear yellow urine Ext - No pedal edema Neuro - sedated Skin - Warm and dry Objective Data Vital Signs Vital Signs: Vital Signs - 24 hr 03/27/20 18:00 03/27/20 20:00 03/27/20 20:01 Temperature 98.9 F Pulse Rate 93 98 107 H Respiratory Rate 26 H 25 H Blood Pressure 108/51 L 114/73 Pulse Oximetry 94 92 03/27/20 20:43 03/27/20 21:00 03/27/20 22:00 Temperature Pulse Rate 114 H 99 88 Respiratory Rate 27 H Blood Pressure Pulse Oximetry 92 03/27/20 22:01 03/28/20 00:00 03/28/20 00:01 Temperature 97.2 F L Pulse Rate 86 85 86 Respiratory Rate 23 H 24 H Blood Pressure 111/54 L 97/65 L Pulse Oximetry 96 93 03/28/20 02:00 03/28/20 02:55 03/28/20 03:00 Temperature Pulse Rate 89 92 95 Respiratory Rate 26 H 22 H 28 H Blood Pressure 106/69 Pulse Oximetry 90 91 03/28/20 03:07 03/28/20 04:00 03/28/20 05:50 Temperature Pulse Rate 89 93 100 Respiratory Rate 20 21
[2020-03-28] MEDS: APIXABAN 5 MG TABLET PO (18:33)
[2020-03-28] MEDS: CENTRAL LINE FLUSH 10 ML IV PUSH (20:19)
[2020-03-28] MEDS: AMIODARONE 360 MG/D5W 200 ML 360 MG/200 ML BAG 16.67 MG IV CONT (21:16)
[2020-03-29] VITALS (35 sets, daily range): BP systolic 88–147; BP diastolic 49–89; PULSE 76–126; RESP 16–31; TEMP 36.4–37.3; O2SAT 90–100
[2020-03-29 06:09] LABS: Alveolar/Arterial O2 Gradient 588.4 mmHg; Base Excess ABG 2.3 mEq/l (+/-2.0); Fractional Inspired Oxygen 100 %; HCO3 ABG 28.6 mEq/l (22.0-26.0); Oxygen Content ABG 17.7 %vol (16.0-22.0); Oxygen Saturation ABG 94.1 % (95.0-100.0); Oxyhemoglobin 93.3 % THb (90.0-100.0); PCO2 ABG 51.4 mmHg (35.0-45.0); PO2 ABG 73.2 mmHg (80.0-100.0); PO2 FiO2 Ratio Arterial Blood 0.73 %; Total Hemoglobin 13.5 g/dL (12.0-18.0); pH ABG 7.364 (7.350-7.450)
[2020-03-29 06:10] LABS: Device VENTILATOR; Modified Allen's Test Pass; Site Drawn RIGHT RADIAL
[2020-03-29 06:11] LABS: Arterial Blood Gas PEEP 12 cmH2O; Arterial Blood Gas Tidal Volume 350 ml; Arterial Blood Gas Vent Mode CMV; Arterial Blood Gas Ventilator rate 26 /MIN
[2020-03-29] MEDS: CENTRAL LINE FLUSH 10 ML IV PUSH ×2 (06:27→21:10)
[2020-03-29 07:34] LABS: Hematocrit 36.9 % (37.0-47.0); Hemoglobin 12.3 g/dL (12.0-15.0); Mean Corpuscular HGB Conc 33.3 g/dl (32-36); Mean Corpuscular Hemoglobin 30.2 pg (26-34); Mean Corpuscular Volume 90.7 fl (80-100); Platelet Count Result 109 k/mm3 (150-375); Red Blood Count 4.07 M/mm3 (4.2-5.4); Red Cell Distribution Width 13.7 % (11.5-14.5); White Blood Count 18.3 K/mm3 (4.5-10.0)
[2020-03-29 07:47] LABS: Alanine Aminotransferase 36 U/L (4-35); Albumin Level 3.1 g/dL (3.5-5.1); Alkaline Phosphatase 80 U/L (38-126); Anion Gap 5 mmol/L (8-16); Aspartate Amino Transferase 47 U/L (14-36); Bilirubin,Total 0.8 mg/dL (0.2-1.3); Blood Urea Nitrogen 35 mg/dL (7-17); Calcium 8.6 mg/dL (8.4-10.2); Carbon Dioxide 35 mmol/L (22-30); Chloride 97 mmol/L (98-107); Estimated CRCL calculation 46 ml/min; Estimated Glomerular Filt Rate > 60; Glucose 203 mg/dL (65-105); Magnesium 1.7 mg/dL (1.6-2.3); Phosphorus 3.5 mg/dL (2.5-4.5); Potassium 3.2 mmol/L (3.4-5.0); Sodium 137 mmol/L (137-145)
[2020-03-29] MEDS: ASCORBIC ACID 500 MG TABLET 1000 MG PO (09:24)
[2020-03-29] MEDS: ZINC SULFATE 220 MG CAPSULE PO (09:24)
[2020-03-29] MEDS: APIXABAN 5 MG TABLET PO ×2 (09:24→17:39)
[2020-03-29] MEDS: CHOLECALCIFEROL 1,000 UNITS TABLET 1000 UNITS PO (09:24)
[2020-03-29] MEDS: SIMVASTATIN 20 MG TABLET 40 MG PO (09:24)
[2020-03-29] MEDS: DEXAMETHASONE SOD PHOS INJ 4 MG/ML VIAL 6 MG IV PUSH (09:24)
--- NOTE | 2020-03-29 09:26 | PM.IMPN ---
Progress Note: A&P Assessment and Plan (1) Acute respiratory failure with hypoxia: Code(s): J96.01 - Acute respiratory failure with hypoxia Status: Acute Assessment and Plan: Secondary to COVID-19. Patient's condition has progressed requiring intubation. Wean as tolerated. Continue treatment for COVID-19 pneumonia. RT assess and treat. Appreciate professor of oceanography input. (2) Shock: Code(s): R57.9 - Shock, unspecified Status: Acute Assessment and Plan: BP soft but has worsened requiring Levophed. [place] related to sepsis from COVID PNA; consider hypovolemia but doubt cardiogenic. BP better. Wean Levophed off as tolerated. (3) Pneumonia due to COVID-19 virus: Code(s): U07.1 - COVID-19; J12.82 - Pneumonia due to coronavirus disease 2019 Status: Acute Assessment and Plan: COVID-19 positive on 03/21/20. Dexamethasone started 03/24. Remdesivir stopped after 3 doses. Continue bronchodilators. Continue droplet isolation. (4) Atrial fibrillation: Qualifiers: Atrial fibrillation type: unspecified Qualified Code(s): I48.91 - Unspecified atrial fibrillation Code(s): I48.91 - Unspecified atrial fibrillation Status: Acute Assessment and Plan: Patient with chronic AFib. HR poorly controlled and Amio started; HR better controlled now. BP soft so metoprolol held. Resume when able. Continue Eliquis for stroke prophylaxis. (5) Essential (primary) hypertension: Code(s): I10 - Essential (primary) hypertension Status: Chronic Assessment and Plan: Hypotensive. Hold home antihypertensives and resume when appropriate. (6) Hyperlipidemia: Qualifiers: Hyperlipidemia type: unspecified Qualified Code(s): E78.5 - Hyperlipidemia, unspecified Code(s): E78.5 - Hyperlipidemia, unspecified Status: Chronic Assessment and Plan: LFTs okay. Continue simvastatin PO. (7) DVT prophylaxis: Code(s): Z29.9 - Encounter for prophylactic measures, unspecified Status: Acute Assessment and Plan: Eliquis Subjective Date/time seen: 03/29/20 09:26 Interval history: Date of service 03/29 84-year-old female presented to the ED with shortness of breath, fatigue, cough. Positive for COVID-19 on 03/21/2020. Patient was at the infusion center on 03/24 when she was scheduled for Bamlanivimab, but was sent to the ED due to low pulse rate. In the ER patient was found to be hypoxic on room air. Patient's condition has worsened and now she is intubated (03/28). Intubated yesterday. Remains on pressors and on 100% FiO2. Review of Systems Review of Systems: ROS unobtainable: Yes unobtainable due to endotracheal tube Exam Narrative: Exam Narrative: AF 98.3 106/61 89 28 93% MV Gen - intubated and sedated Chest - distant BS anteriorly CV - irregularly irregular; Tele showing AFib, PVCs. Abd - Soft, ND - Gallagher secured draining clear yellow urine Ext - No pedal edema Neuro - sedated but opens eyes to voice. Does not follow commands Skin - Warm and dry Objective Data Vital Signs Vital Signs: Vital Signs - 24 hr 03/28/20 10:00 03/28/20 12:00 03/28/20 12:33 Temperature 97.1 F L Pulse Rate 127 H 115 H 139 H Respiratory Rate 43 H 37 H Blood Pressure 127/63 101/64 Pulse Oximetry 93 90 95 03/28/20 13:00 03/28/20 13:15 03/28/20 13:30 Temperature Pulse Rate 178 H 126 H 144 H Respiratory Rate 26 H 28 H 26 H Blood Pressure Pulse Oximetry 03/28/20 13:45 03/28/20 13:48 03/28/20 14:00 Temperature Pulse Rate 105 H 149 H 92 Respiratory Rate 26 H 27 H Blood Pressure 109/64 Pulse Oximetry 86 L 03/28/20 14:24 03/28/20 14:26 03/28/20 15:14 Temperature Pulse Rate 120 H 128 H 132 H Respiratory Rate 34 H Blood Pressure 72/48 L Pulse Oximetry 84 L 85 L 03/28/20 15:15 03/28/20 15:42 03/28/20 15:43 Temperature Pulse Rate 118
[2020-03-29] MEDS: AMIODARONE 360 MG/D5W 200 ML 360 MG/200 ML BAG 16.67 MG IV CONT ×2 (09:29→20:10)
--- NOTE | 2020-03-29 12:22 | WPDINTPN ---
Progress Note: A&P Assessment and Plan (1) Acute respiratory failure with hypoxia: Code(s): J96.01 - Acute respiratory failure with hypoxia Status: Acute Assessment and Plan: Patient failed Airvo and BiPAP with 100% FiO2 -on 03/28/2020: Patient was desaturating in the 70s and 80s on 100% BiPAP. Discussed with patient regarding intubation and placement on mechanical ventilation, she did not want to be intubated and placed on mechanical ventilation and wanted to be made comfort measures. After talking to her daughter Edwige on the phone, patient changed her mind and wanted to be intubated and placed on mechanical ventilation. Also discussed at length with Edwige, the daughter, and she wanted her mother to get the last chance. -intubation was uneventful on 03/28/2020 -currently on 100% FiO2, peep of 12, decrease PEEP to 10. Low tidal volume strategy -patient sedated with fentanyl and Versed infusion (2) Pneumonia due to COVID-19 virus: Code(s): U07.1 - COVID-19; J12.82 - Pneumonia due to coronavirus disease 2019 Status: Acute Assessment and Plan: SARS-CoV-2 PCR positive on 03/21/2020 -patient has been started on dexamethasone which was initiated on 03/25/2020 -infectious disease discontinued Remdesivir as it has no benefit for this patient -received 1 unit of convalescent plasma on 03/25/2020 -continue airborne, contact and droplet isolation/precautions -will add vitamin-C, vitamin D, zinc supplement to enhance immunity (3) Essential (primary) hypertension: Code(s): I10 - Essential (primary) hypertension Status: Chronic Assessment and Plan: Blood pressure is borderline will continue to hold all antihypertensive (4) Atrial fibrillation: Qualifiers: Atrial fibrillation type: unspecified Qualified Code(s): I48.91 - Unspecified atrial fibrillation Code(s): I48.91 - Unspecified atrial fibrillation Status: Acute Assessment and Plan: Patient went into AFib RVR, blood pressures have been stable -continue to monitor at this time -continue Eliquis (5) Hyperlipidemia: Qualifiers: Hyperlipidemia type: unspecified Qualified Code(s): E78.5 - Hyperlipidemia, unspecified Code(s): E78.5 - Hyperlipidemia, unspecified Status: Chronic Assessment and Plan: Continue simvastatin (6) DVT prophylaxis: Code(s): Z29.9 - Encounter for prophylactic measures, unspecified Status: Acute Assessment and Plan: Continue Eliquis Additional Plan Discussed with daughter Edwige Iqbal and updated her with patient's condition and plan of care. Patient had questions regarding the visitation if the family ever decides to withdraw support. Did let her know that they would be only 2 family members that would be permitted to come and visit the patient when they make her comfort measures. Code status: DNR Critical care time spent: 34 minutes Subjective Date/time seen: 03/29/20 12:22 Interval history: 84-year-old female presented to the ED with shortness of breath, fatigue, cough. Positive for COVID-19 on 03/21/2020. Patient was at the infusion center on 03/24 when she was scheduled for Bamlanivimab, but was sent to the ED due to low pulse rate. In the ER patient was found to be hypoxic on room air. -03/28/2020: Intubated 03/29/2020: Patient remains intubated on 100% FiO2 and peep of 12. Patient is sedated with fentanyl and Versed infusion patient is off Levophed. Patient also on FLOLAN. Urine output is slightly low, potassium of 3.2 this morning. Patient is afebrile. Patient opens her eyes and follows simple commands. Hemodynamically stable. Patient's heart rate is much improved, remains in AFib, on amiodarone infusion Review of Systems Review of Systems: ROS unobtainable: Yes unobtainable due to endotracheal tube Exam Const: General: comfortable and no acute distress HENMT: Other: ETT in place Eyes: Scle
[2020-03-29 16:48] LABS: Base Excess ABG 3.8 mEq/l (+/-2.0); Fractional Inspired Oxygen 95 %; HCO3 ABG 30.7 mEq/l (22.0-26.0); Oxygen Content ABG 17.2 %vol (16.0-22.0); Oxygen Saturation ABG 94.5 % (95.0-100.0); Oxyhemoglobin 94.6 % THb (90.0-100.0); PCO2 ABG 56.7 mmHg (35.0-45.0); PO2 ABG 76.9 mmHg (80.0-100.0); PO2 FiO2 Ratio Arterial Blood 0.81 %; Total Hemoglobin 12.9 g/dL (12.0-18.0); pH ABG 7.352 (7.350-7.450)
[2020-03-29 16:51] LABS: Modified Allen's Test Pass; Site Drawn RIGHT RADIAL
[2020-03-29 16:52] LABS: Device VENTILATOR
[2020-03-29 16:53] LABS: Arterial Blood Gas Vent Mode ASSIST CONTROL; Arterial Blood Gas Ventilator rate 26 /MIN; Peak Inspiratory Pressure 0 cmH2O
[2020-03-29 16:54] LABS: Arterial Blood Gas Minute Volume 0 LPM; Arterial Blood Gas PEEP 10 cmH2O; Arterial Blood Gas Pressure Support 0 cmH2O; Arterial Blood Gas Tidal Volume 350 ml
[2020-03-29] MEDS: FENTANYL 2,500MCG/NS250ML(*CRX 2,500 MCG/250 ML BAG 7.5 MCG IV CONT (20:16)
[2020-03-29] MEDS: EPOPROSTENOL SODIUM 0.5 MG VIAL 1 MG INHALATION (21:02)
[2020-03-30] VITALS (38 sets, daily range): BP systolic 78–111; BP diastolic 46–70; PULSE 81–145; RESP 10–30; TEMP 36.1–37.6; O2SAT 91–97; BMI 25.8
[2020-03-30 04:23] LABS: Alveolar/Arterial O2 Gradient 548.9 mmHg; Base Excess ABG 4.6 mEq/l (+/-2.0); Carboxyhemoglobin 0.3 % THb (0-2.0); Fractional Inspired Oxygen 95 %; HCO3 ABG 30.8 mEq/l (22.0-26.0); Oxygen Saturation ABG 94.7 % (95.0-100.0); Oxyhemoglobin 94.3 % THb (90.0-100.0); PCO2 ABG 52.5 mmHg (35.0-45.0); PO2 ABG 75.3 mmHg (80.0-100.0); PO2 FiO2 Ratio Arterial Blood 0.79 %; Reduced Hemoglobin 5.4 %THb (0-5.0); Total Hemoglobin 12.8 g/dL (12.0-18.0); pH ABG 7.386 (7.350-7.450)
[2020-03-30 04:24] LABS: Arterial Blood Gas PEEP 10 cmH2O; Arterial Blood Gas Tidal Volume 350 ml; Arterial Blood Gas Vent Mode ASSIST CONTROL; Arterial Blood Gas Ventilator rate 26 /MIN; Device VENTILATOR; Modified Allen's Test Unable to perform; Site Drawn LEFT RADIAL
[2020-03-30] MEDS: EPOPROSTENOL SODIUM 0.5 MG VIAL 1 MG INHALATION ×4 (05:24→21:57)
[2020-03-30] MEDS: CENTRAL LINE FLUSH 10 ML IV PUSH ×3 (05:43→21:28)
[2020-03-30 05:54] LABS: Hematocrit 35.3 % (37.0-47.0); Hemoglobin 11.7 g/dL (12.0-15.0); Immature Platelet Fraction Pct 11.5 % (0.9-11.2); Mean Corpuscular HGB Conc 33.1 g/dl (32-36); Mean Corpuscular Hemoglobin 30.7 pg (26-34); Mean Corpuscular Volume 92.7 fl (80-100); Platelet Count Result 98 k/mm3 (150-375); Red Blood Count 3.81 M/mm3 (4.2-5.4)
[2020-03-30 06:13] LABS: Alanine Aminotransferase 28 U/L (4-35); Alkaline Phosphatase 79 U/L (38-126); Anion Gap 2 mmol/L (8-16); Aspartate Amino Transferase 32 U/L (14-36); Bilirubin,Total 0.6 mg/dL (0.2-1.3); Blood Urea Nitrogen 39 mg/dL (7-17); Carbon Dioxide 37 mmol/L (22-30); Chloride 101 mmol/L (98-107); Estimated CRCL calculation 46 ml/min; Estimated Glomerular Filt Rate > 60; Glucose 169 mg/dL (65-105); Lactate Dehydrogenase 1327 U/L (313-618); Magnesium 1.9 mg/dL (1.6-2.3); Phosphorus 2.5 mg/dL (2.5-4.5); Potassium 3.8 mmol/L (3.4-5.0); Sodium 140 mmol/L (137-145)
[2020-03-30 06:22] LABS: CRP 22.4 mg/dL (<1.0)
[2020-03-30 06:44] LABS: D Dimer 8.71 ug/mL (<0.48)
[2020-03-30] MEDS: AMIODARONE 360 MG/D5W 200 ML 360 MG/200 ML BAG 16.67 MG IV CONT ×2 (08:30→21:26)
[2020-03-30] MEDS: DEXAMETHASONE SOD PHOS INJ 4 MG/ML VIAL 6 MG IV PUSH (08:57)
[2020-03-30] MEDS: APIXABAN 5 MG TABLET PO ×2 (08:58→16:47)
[2020-03-30] MEDS: CHOLECALCIFEROL 1,000 UNITS TABLET 1000 UNITS PO (08:58)
[2020-03-30] MEDS: ASCORBIC ACID 500 MG TABLET 1000 MG PO (08:58)
[2020-03-30] MEDS: ZINC SULFATE 220 MG CAPSULE PO (08:58)
[2020-03-30] MEDS: SIMVASTATIN 20 MG TABLET 40 MG PO (08:59)
--- NOTE | 2020-03-30 09:08 | PM.IMPN ---
Progress Note: A&P Assessment and Plan (1) Acute respiratory failure with hypoxia: Code(s): J96.01 - Acute respiratory failure with hypoxia Status: Acute Assessment and Plan: Secondary to COVID-19. Patient's condition has progressed requiring intubation and the use of Flolan. CXR reviewed personally today showing bilateral airspace (L>R) disease without change. Wean as tolerated. Continue treatment for COVID-19 pneumonia. RT assess and treat. Appreciate tax collection coordinator input. (2) Shock: Code(s): R57.9 - Shock, unspecified Status: Acute Assessment and Plan: BP dropped so Levophed started 03/28/20. [place] related to sepsis from COVID PNA; consider hypovolemia but doubt cardiogenic. BP better and able to wean Levophed. Wean Levophed off as tolerated. (3) Pneumonia due to COVID-19 virus: Code(s): U07.1 - COVID-19; J12.82 - Pneumonia due to coronavirus disease 2019 Status: Acute Assessment and Plan: COVID-19 positive on 03/21/20. Dexamethasone started 03/24. Remdesivir stopped on 03/26/20 after 3 doses. Continue droplet isolation. Continue supportive care. (4) Atrial fibrillation: Qualifiers: Atrial fibrillation type: unspecified Qualified Code(s): I48.91 - Unspecified atrial fibrillation Code(s): I48.91 - Unspecified atrial fibrillation Status: Acute Assessment and Plan: Patient with chronic AFib. HR poorly controlled and Amio started; HR better controlled now. BP soft so metoprolol held. Resume when able. Continue Eliquis for stroke prophylaxis. (5) Essential (primary) hypertension: Code(s): I10 - Essential (primary) hypertension Status: Chronic Assessment and Plan: Remains on pressors. As above. (6) Hyperlipidemia: Qualifiers: Hyperlipidemia type: unspecified Qualified Code(s): E78.5 - Hyperlipidemia, unspecified Code(s): E78.5 - Hyperlipidemia, unspecified Status: Chronic Assessment and Plan: LFTs okay. Continue simvastatin. (7) DVT prophylaxis: Code(s): Z29.9 - Encounter for prophylactic measures, unspecified Status: Acute Assessment and Plan: Eliquis Subjective Date/time seen: 03/30/20 09:08 Interval history: Date of service 03/30 84-year-old female presented to the ED with shortness of breath, fatigue, cough. Positive for COVID-19 on 03/21/2020. Patient was at the infusion center on 03/24 when she was scheduled for Bamlanivimab, but was sent to the ED due to low pulse rate. In the ER patient was found to be hypoxic on room air. Patient's condition has worsened and now she is intubated (03/28). Intubated and sedated. Also on Flolan and requiring pressors. Minimal secretions. [place] TF. Review of Systems Review of Systems: ROS unobtainable: Yes unobtainable due to endotracheal tube Exam Narrative: Exam Narrative: AF 97.8 105/60 101 10 95% MV Gen - intubated and sedated Chest - distant, clear BS anteriorly; few rhonchi in the flanks. CV - irregularly irregular; Tele showing AFib with rate 105-110, PVCs. Abd - Soft, ND, +BS - Gallagher secured draining clear yellow urine Ext - No pedal edema Neuro - sedated. Skin - Warm and dry Objective Data Vital Signs Vital Signs: Vital Signs - 24 hr 03/29/20 09:16 03/29/20 09:29 03/29/20 09:47 Temperature Pulse Rate 119 H 119 H 104 H Respiratory Rate 28 H Blood Pressure Pulse Oximetry 96 03/29/20 10:00 03/29/20 11:10 03/29/20 12:00 Temperature 98 F Pulse Rate 110 H 126 H 110 H Respiratory Rate 26 H 29 H 29 H Blood Pressure 147/89 H 115/49 L Pulse Oximetry 91 94 97 03/29/20 12:15 03/29/20 13:51 03/29/20 14:00 Temperature Pulse Rate 115 H 112 H 112 H Respiratory Rate 26 H 28 H 26 H Blood Pressure 99/52 L Pulse Oximetry 96 94 95 03/29/20 15:35 03/29/20 16:00 03/29/20 16:40 Temperature 97.8 F Pulse Rate 102 H 109
--- NOTE | 2020-03-30 11:11 | WPDINTPN ---
Progress Note: A&P Assessment and Plan (1) Acute respiratory failure with hypoxia: Code(s): J96.01 - Acute respiratory failure with hypoxia Status: Acute Assessment and Plan: Patient failed Airvo and BiPAP with 100% FiO2 -on 03/28/2020: Patient was desaturating in the 70s and 80s on 100% BiPAP. Discussed with patient regarding intubation and placement on mechanical ventilation, she did not want to be intubated and placed on mechanical ventilation and wanted to be made comfort measures. After talking to her daughter Edwige on the phone, patient changed her mind and wanted to be intubated and placed on mechanical ventilation. Also discussed at length with Edwige, the daughter, and she wanted her mother to get the last chance. -intubation was uneventful on 03/28/2020 -currently on 100% FiO2, peep of 10. Low tidal volume strategy. Will continue to wean FiO2 as tolerated -patient sedated with fentanyl and Versed infusion (2) Pneumonia due to COVID-19 virus: Code(s): U07.1 - COVID-19; J12.82 - Pneumonia due to coronavirus disease 2019 Status: Acute Assessment and Plan: SARS-CoV-2 PCR positive on 03/21/2020 -patient has been started on dexamethasone which was initiated on 03/25/2020 -infectious disease discontinued Remdesivir as it has no benefit for this patient -received 1 unit of convalescent plasma on 03/25/2020 -continue airborne, contact and droplet isolation/precautions -will add vitamin-C, vitamin D, zinc supplement to enhance immunity (3) Essential (primary) hypertension: Code(s): I10 - Essential (primary) hypertension Status: Chronic Assessment and Plan: Blood pressure is borderline will continue to hold all antihypertensive (4) Atrial fibrillation: Qualifiers: Atrial fibrillation type: unspecified Qualified Code(s): I48.91 - Unspecified atrial fibrillation Code(s): I48.91 - Unspecified atrial fibrillation Status: Acute Assessment and Plan: Patient went into AFib RVR, blood pressures have been stable -continue to monitor at this time -continue Eliquis (5) Hyperlipidemia: Qualifiers: Hyperlipidemia type: unspecified Qualified Code(s): E78.5 - Hyperlipidemia, unspecified Code(s): E78.5 - Hyperlipidemia, unspecified Status: Chronic Assessment and Plan: Continue simvastatin (6) DVT prophylaxis: Code(s): Z29.9 - Encounter for prophylactic measures, unspecified Status: Acute Assessment and Plan: Continue Eliquis (7) Shock: Code(s): R57.9 - Shock, unspecified Status: Acute Assessment and Plan: Patient with hypotension requiring low-dose Levophed, likely related to COVID-19 pneumonia, positive-pressure ventilation, sedation medications. -elevated WBC count, patient is afebrile -will obtain lactic acid level -panculture Additional Plan Discussed with daughter Edwige Iqbal and updated her with patient's condition and plan of care. Patient had questions regarding the visitation if the family ever decides to withdraw support. Did let her know that they would be only 2 family members that would be permitted to come and visit the patient when they make her comfort measures. Code status: DNR Critical care time spent: 33 minutes Subjective Date/time seen: 03/30/20 11:11 Interval history: 84-year-old female presented to the ED with shortness of breath, fatigue, cough. Positive for COVID-19 on 03/21/2020. Patient was at the infusion center on 03/24 when she was scheduled for Bamlanivimab, but was sent to the ED due to low pulse rate. In the ER patient was found to be hypoxic on room air. -03/28/2020: Intubated 03/30/2020: Patient remains intubated on 95% FiO2 and peep of 10. Patient is sedated with fentanyl and Versed infusion. She was restarted on Levophed, currently at 2 mcg/minute.. Patient also on FLOLAN. Urine output is slightly low.. Patient is afebrile.
--- NOTE | 2020-03-30 11:48 | PCDIET ---
Nutrition Follow-Up Complete: Nutrition Diagnosis: Predicted suboptimal oral intake related to decreased appetite as evidenced by RN reports, patient reporting poor appetite/weight loss on admission. Nutrition Goal: Patient to consume 75% of meals/supplements or greater. Goal not met due to intubation. New goal: Patient to meet estimated nutritional needs. Last recorded weight is 70.45 kg. Recommend obtaining new weight. Bowel Motility: Last documented BM on 03/26/20 x 1. Labs Reviewed: Hgb (11.7), Hct (35.3), Glu (169), BUN (39), Alb (3.0) Meds Noted: Vitamin C, Decadron, Fentanyl, Atrovent, Xopenex, Lopressor, Versed, Levophed, Zocor, Vitamin D, Zinc Sulfate Additional Notes: No documented skin breakdown. Patient has been receiving Vital 1.2 at 40mL/hr with goal of 50mL/hr. Clarified order with MD. Nutrition Monitoring and Evaluation: Follow up in 3 days.
[2020-03-30 12:33] LABS: Lactic Acid Reflex 1.4 mmol/L (0.7-2.1)
[2020-03-30 13:55] LABS: Glucose Point of Care 184 (65-105)
--- NOTE | 2020-03-30 14:29 | WPDINFPN2 ---
Progress Note: A&P Assessment and Plan (1) Pneumonia due to COVID-19 virus: Code(s): U07.1 - COVID-19; J12.82 - Pneumonia due to coronavirus disease 2019 Status: Acute Additional Plan 1. Dyspnea due to CoVid 19 pneumonia, symptom onset ~03/11, test 03/21. 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 3. Leukocytosis, due to # 1 and due to steroid, about the same in recent days. No other + micro. REC Dexamethasone # 7 / 10 days. No benefit from remdesivir nor monoclonal antibody nor tocilizumab. Following wbc over time. Subjective Date/time seen: 03/30/20 14:29 Interval history: sedated, low dose norepi. Intubated Exam Narrative: Exam Narrative: afebrile Const: General: no acute distress Resp: Effort & Inspection: normal respiratory effort Auscultation: rales Cardio: Rate: regular rate Rhythm: regular rhythm Heart sounds: no murmurs GI: Inspection: non-distended GI Palp: Yes Soft to palpation and No Tenderness to palpation present (GI) Urinary Catheter: Urinary Catheter: patent and draining and urine clear Skin: General skin exam: normal color and no rashes or lesions noted Objective Data Vital Signs Vital Signs: Vital Signs - 24 hr 03/29/20 15:35 03/29/20 16:00 03/29/20 16:40 Temperature 36.6 C Pulse Rate 102 H 109 H 120 H Respiratory Rate 31 H 27 H Blood Pressure 103/54 L Pulse Oximetry 100 93 99 03/29/20 16:45 03/29/20 18:00 03/29/20 18:49 Temperature Pulse Rate 120 H 101 H 105 H Respiratory Rate 28 H 26 H Blood Pressure 95/54 L Pulse Oximetry 98 96 98 03/29/20 19:18 03/29/20 20:00 03/29/20 20:10 Temperature 36.4 C Pulse Rate 104 H 101 H 101 H Respiratory Rate 27 H 18 Blood Pressure 90/57 L 90/57 L Pulse Oximetry 97 96 03/29/20 20:16 03/29/20 21:05 03/29/20 22:00 Temperature Pulse Rate 101 H 103 H 76 Respiratory Rate 21 H 22 H 27 H Blood Pressure 88/70 L Pulse Oximetry 97 96 03/29/20 22:57 03/29/20 23:00 03/30/20 00:00 Temperature 36.6 C Pulse Rate 109 H 94 109 H Respiratory Rate 27 H 20 Blood Pressure 94/63 L Pulse Oximetry 97 97 95 03/30/20 00:54 03/30/20 00:57 03/30/20 02:00 Temperature Pulse Rate 109 H 120 H 81 Respiratory Rate 30 H 27 H Blood Pressure 84/51 L Pulse Oximetry 96 95 97 03/30/20 02:01 03/30/20 03:01 03/30/20 04:00 Temperature 36.6 C Pulse Rate 103 H 112 H Respiratory Rate 30 H 18 Blood Pressure 78/46 L 94/60 L Pulse Oximetry 95 95 03/30/20 05:02 03/30/20 05:24 03/30/20 06:00 Temperature Pulse Rate 114 H 116 H 119 H Respiratory Rate 20 10 L Blood Pressure 91/62 L Pulse Oximetry 96 96 95 03/30/20 08:00 03/30/20 08:11 03/30/20 08:30 Temperature 36.1 C L Pulse Rate 118 H 112 H 101 H Respiratory Rate 20 20 Blood Pressure 100/65 105/60 Pulse Oximetry 93 93 03/30/20 10:00 03/30/20 10:08 03/30/20 10:11 Temperature Pulse Rate 118 H 119 H 124 H Respiratory Rate 26 H 20 Blood Pressure 111/65 Pulse Oximetry 94 93 94 03/30/20 12:00 03/30/20 13:28 03/30/20 14:00 Temperature 37.3 C Pulse Rate 119 H 118 H 116 H Respiratory Rate 21 H 20 26 H Blood Pressure 106/63 102/70 Pulse Oximetry 94 93 94 Intake/Output Intake/Output: Intake & Output 03/27/20 03/28/20 03/29/20 03/30/20 23:59 23:59 23:59 23:59 Intake Total 600 1495 670 581 Output Total 1700 083 475 300 Balance -1100 645 195 281 Meds/Results Medications: Active Medications Generic Name Dose Route Start Last Admin Trade Name Freq PRN Reason Stop Dose Admin Acetaminophen 650 mg 03/24/20 17:09 03/27/20 20:41 Acetaminophen 325 Mg Tablet PO 650 mg Q4H PRN Administration Mild Pain (1-3) or Fever Albuterol 2 puff 03/24/20 20:52 Albuterol Sulfate (*Sp) Aerosol 1 Puff INHALATION Q6HRT PRN Shortness Of Breath Apixaban 5 mg 03/25/20 09:00 03/30/20 08:58 Apixaban 5 Mg Tablet PO 5 mg BID FARHAD Administration Ascorbic Acid 1,000 mg 03/26/20 09:00 03/30/20
[2020-03-30 17:30] LABS: Alveolar/Arterial O2 Gradient 469.3 mmHg; Base Excess ABG 1.2 mEq/l (+/-2.0); Fractional Inspired Oxygen 85 %; HCO3 ABG 27.4 mEq/l (22.0-26.0); Oxygen Content ABG 17.3 %vol (16.0-22.0); Oxygen Saturation ABG 95.9 % (95.0-100.0); Oxyhemoglobin 95.1 % THb (90.0-100.0); PO2 ABG 84.9 mmHg (80.0-100.0); Total Hemoglobin 12.9 g/dL (12.0-18.0); pH ABG 7.357 (7.350-7.450)
[2020-03-30 17:31] LABS: Arterial Blood Gas Ventilator rate 26 /MIN; Device VENTILATOR; Modified Allen's Test Pass; Site Drawn LEFT RADIAL
[2020-03-30 17:32] LABS: Arterial Blood Gas PEEP 10 cmH2O; Arterial Blood Gas Tidal Volume 350 ml; Arterial Blood Gas Vent Mode CMV
[2020-03-30] MEDS: INSULIN ASPART (*BKC) 100 UNITS/ML SUB-Q (17:35)
[2020-03-30 17:37] LABS: Glucose Point of Care 214 (65-105)
[2020-03-31] VITALS (35 sets, daily range): BP systolic 92–123; BP diastolic 50–80; PULSE 83–123; RESP 14–28; TEMP 36.2–37.3; O2SAT 89–99
[2020-03-31] MEDS: EPOPROSTENOL SODIUM 0.5 MG VIAL 1 MG INHALATION ×4 (01:46→19:55)
[2020-03-31 02:32] LABS: Glucose Point of Care 170 (65-105)
[2020-03-31 04:55] LABS: Alveolar/Arterial O2 Gradient 438.6 mmHg; Base Excess ABG 3.3 mEq/l (+/-2.0); Fractional Inspired Oxygen 80 %; HCO3 ABG 29.5 mEq/l (22.0-26.0); Oxygen Content ABG 16.5 %vol (16.0-22.0); Oxyhemoglobin 94.2 % THb (90.0-100.0); PCO2 ABG 51.9 mmHg (35.0-45.0); PO2 ABG 77.3 mmHg (80.0-100.0); PO2 FiO2 Ratio Arterial Blood 0.97 %; Total Hemoglobin 12.4 g/dL (12.0-18.0); pH ABG 7.373 (7.350-7.450)
[2020-03-31 04:57] LABS: Arterial Blood Gas PEEP 10 cmH2O; Arterial Blood Gas Tidal Volume 350 ml; Arterial Blood Gas Vent Mode CMV; Arterial Blood Gas Ventilator rate 26 /MIN; Device VENTILATOR; Modified Allen's Test Pass; Site Drawn LEFT RADIAL
[2020-03-31 05:40] LABS: Hematocrit 36.2 % (37.0-47.0); Hemoglobin 11.6 g/dL (12.0-15.0); Immature Platelet Fraction Pct 9.8 % (0.9-11.2); Mean Corpuscular Hemoglobin 30.5 pg (26-34); Mean Corpuscular Volume 95.3 fl (80-100); Mean Platelet Volume 11.7 fl (7.4-10.4); Platelet Count Result 95 k/mm3 (150-375); Red Cell Distribution Width 14.1 % (11.5-14.5); White Blood Count 14.5 K/mm3 (4.5-10.0)
[2020-03-31] MEDS: CENTRAL LINE FLUSH 10 ML IV PUSH ×3 (05:49→20:09)
[2020-03-31 05:53] LABS: Glucose Point of Care 176 (65-105)
[2020-03-31 06:04] LABS: Alanine Aminotransferase 23 U/L (4-35); Albumin Level 2.9 g/dL (3.5-5.1); Alkaline Phosphatase 75 U/L (38-126); Aspartate Amino Transferase 29 U/L (14-36); Bilirubin,Total 0.6 mg/dL (0.2-1.3); Blood Urea Nitrogen 42 mg/dL (7-17); Calcium 9.1 mg/dL (8.4-10.2); Carbon Dioxide > 40 mmol/L (22-30); Chloride 100 mmol/L (98-107); Estimated CRCL calculation 46 ml/min; Estimated Glomerular Filt Rate > 60; Glucose 178 mg/dL (65-105); Phosphorus 2.8 mg/dL (2.5-4.5); Potassium 4.2 mmol/L (3.4-5.0); Sodium 140 mmol/L (137-145)
[2020-03-31] MEDS: DEXAMETHASONE SOD PHOS INJ 4 MG/ML VIAL 6 MG IV PUSH (08:36)
[2020-03-31] MEDS: ASCORBIC ACID 500 MG TABLET 1000 MG PO (08:36)
[2020-03-31] MEDS: APIXABAN 5 MG TABLET PO ×2 (08:36→16:28)
[2020-03-31] MEDS: ZINC SULFATE 220 MG CAPSULE PO (08:36)
[2020-03-31] MEDS: CHOLECALCIFEROL 1,000 UNITS TABLET 1000 UNITS PO (08:37)
[2020-03-31] MEDS: SIMVASTATIN 20 MG TABLET 40 MG PO (08:37)
[2020-03-31] MEDS: AMIODARONE 360 MG/D5W 200 ML 360 MG/200 ML BAG 16.67 MG IV CONT ×2 (09:12→20:08)
--- NOTE | 2020-03-31 11:22 | WPDINTPN ---
Progress Note: A&P Assessment and Plan (1) Acute respiratory failure with hypoxia: Code(s): J96.01 - Acute respiratory failure with hypoxia Status: Acute Assessment and Plan: Patient failed Airvo and BiPAP with 100% FiO2 -on 03/28/2020: Patient was desaturating in the 70s and 80s on 100% BiPAP. Discussed with patient regarding intubation and placement on mechanical ventilation, she did not want to be intubated and placed on mechanical ventilation and wanted to be made comfort measures. After talking to her daughter Edwige on the phone, patient changed her mind and wanted to be intubated and placed on mechanical ventilation. Also discussed at length with Edwige, the daughter, and she wanted her mother to get the last chance. -intubation was uneventful on 03/28/2020 -currently on 80% % FiO2, peep of 10. Low tidal volume strategy. Will continue to wean FiO2 as tolerated -patient sedated with fentanyl and Versed infusion -patient on Flolan (2) Pneumonia due to COVID-19 virus: Code(s): U07.1 - COVID-19; J12.82 - Pneumonia due to coronavirus disease 2019 Status: Acute Assessment and Plan: SARS-CoV-2 PCR positive on 03/21/2020 -patient has been started on dexamethasone which was initiated on 03/25/2020 -infectious disease discontinued Remdesivir as it has no benefit for this patient -received 1 unit of convalescent plasma on 03/25/2020 -continue airborne, contact and droplet isolation/precautions -will add vitamin-C, vitamin D, zinc supplement to enhance immunity (3) Essential (primary) hypertension: Code(s): I10 - Essential (primary) hypertension Status: Chronic Assessment and Plan: Blood pressure is borderline will continue to hold all antihypertensive (4) Atrial fibrillation: Qualifiers: Atrial fibrillation type: unspecified Qualified Code(s): I48.91 - Unspecified atrial fibrillation Code(s): I48.91 - Unspecified atrial fibrillation Status: Acute Assessment and Plan: Patient went into AFib RVR, blood pressures have been stable -continue to monitor at this time -continue Eliquis -on amiodarone infusion at 0.5 mg (5) Hyperlipidemia: Qualifiers: Hyperlipidemia type: unspecified Qualified Code(s): E78.5 - Hyperlipidemia, unspecified Code(s): E78.5 - Hyperlipidemia, unspecified Status: Chronic Assessment and Plan: Continue simvastatin (6) DVT prophylaxis: Code(s): Z29.9 - Encounter for prophylactic measures, unspecified Status: Acute Assessment and Plan: Continue Eliquis (7) Shock: Code(s): R57.9 - Shock, unspecified Status: Acute Assessment and Plan: Patient with hypotension requiring low-dose Levophed, likely related to COVID-19 pneumonia, positive-pressure ventilation, sedation medications. -elevated WBC count, patient is afebrile -lactic acid is normal -03/30/2020 sputum cultures are negative so far, urine and blood cultures are pending (8) Pneumothorax: Code(s): J93.9 - Pneumothorax, unspecified Status: Acute Assessment and Plan: Patient has a small right apical pneumothorax, discussed in details with radiology, will continue to monitor closely with q.12 hours chest x-ray -if O2 sats decline or patient is hypotensive will obtain stat chest x-ray Additional Plan Discussed with daughter Edwige Iqbal and updated her with patient's condition and plan of care. Updated her regarding patient's oxygen levels, pneumothorax. Daughter also told me that the patient's is also in the intermediate Unit. Code status: DNR Critical care time spent: 34 minutes Subjective Date/time seen: 03/31/20 11:22 Interval history: 84-year-old female presented to the ED with shortness of breath, fatigue, cough. Positive for COVID-19 on 03/21/2020. Patient was at the infusion center on 03/24 when she was scheduled for Bamlanivimab, but was sent to the ED due to
--- NOTE | 2020-03-31 11:50 | PCDIET ---
Nutrition Follow-Up Complete: Nutrition Diagnosis: Predicted suboptimal oral intake related to decreased appetite as evidenced by RN reports, patient reporting poor appetite/weight loss on admission. Nutrition Goal: Patient to meet estimated nutritional needs. Goal met. Patient tolerating Vital 1.2 at 50mL/hr goal rate with 30mL water flush every 4 hours. Last recorded weight is 70.45 kg. Recommend obtaining new weight. Bowel Motility: Last documented BM on 03/26/20 x 1. Labs Reviewed: Hgb (11.6), Hct (36.2), Glu (178), BUN (42), Alb (2.9) Meds Noted: Albuterol, Vitamin C, Decadron, Fentanyl, Novolog, Atrovent, Xopenex, Versed, Levophed, Zocor, Vitamin, D, Zinc Sulfate Additional Notes: No documented skin breakdown. Will continue to monitor with same goal. Nutrition Monitoring and Evaluation: Follow up every Monday/Monday.
--- NOTE | 2020-03-31 12:17 | WPDINFPN2 ---
Progress Note: A&P Assessment and Plan (1) Pneumonia due to COVID-19 virus: Code(s): U07.1 - COVID-19; J12.82 - Pneumonia due to coronavirus disease 2019 Status: Acute Additional Plan 1. Dyspnea due to CoVid 19 pneumonia, symptom onset ~03/11, test 03/21. 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 3. Leukocytosis, due to # 1 and due to steroid, modest improvement 4. Ptx, associated with mechanical ventilation REC Dexamethasone # 8 / 10 days. No benefit from remdesivir nor monoclonal antibody nor tocilizumab. Following wbc over time. Subjective Date/time seen: 03/31/20 12:17 Interval history: sedated, intubated Exam Narrative: Exam Narrative: afebrile Const: General: no acute distress Resp: Effort & Inspection: normal respiratory effort Auscultation: rales Cardio: Rate: regular rate Rhythm: regular rhythm Heart sounds: no murmurs GI: Inspection: non-distended GI Palp: Yes Soft to palpation and No Tenderness to palpation present (GI) Urinary Catheter: Urinary Catheter: patent and draining and urine clear Skin: General skin exam: no rashes or lesions noted Objective Data Vital Signs Vital Signs: Vital Signs - 24 hr 03/30/20 13:28 03/30/20 14:00 03/30/20 16:00 Temperature 37.5 C Pulse Rate 118 H 145 H 116 H Respiratory Rate 20 26 H 26 H Blood Pressure 102/70 99/66 L Pulse Oximetry 93 94 93 03/30/20 16:06 03/30/20 16:44 03/30/20 16:45 Temperature Pulse Rate 120 H 119 H 116 H Respiratory Rate 30 H 26 H 26 H Blood Pressure Pulse Oximetry 93 03/30/20 16:46 03/30/20 17:10 03/30/20 17:11 Temperature Pulse Rate 125 H 116 H 115 H Respiratory Rate 30 H Blood Pressure 103/59 L Pulse Oximetry 94 94 03/30/20 18:00 03/30/20 19:14 03/30/20 20:00 Temperature Pulse Rate 116 H 116 H 117 H Respiratory Rate 26 H 30 H Blood Pressure 97/53 L Pulse Oximetry 95 95 03/30/20 21:00 03/30/20 21:07 03/30/20 21:26 Temperature 37.6 C H Pulse Rate 120 H 108 H 101 H Respiratory Rate 26 H 30 H Blood Pressure 96/59 L 96/59 L Pulse Oximetry 95 95 03/30/20 21:28 03/30/20 21:29 03/30/20 21:57 Temperature Pulse Rate 106 H 112 H 117 H Respiratory Rate 23 H 28 H 23 H Blood Pressure 96/59 L Pulse Oximetry 95 03/30/20 22:00 03/30/20 23:21 03/31/20 00:00 Temperature 37.3 C Pulse Rate 115 H 118 H 123 H Respiratory Rate 26 H 28 H 26 H Blood Pressure 100/52 L 123/80 Pulse Oximetry 95 96 96 03/31/20 00:35 03/31/20 01:46 03/31/20 02:00 Temperature Pulse Rate 106 H 112 H 112 H Respiratory Rate 26 H 26 H 22 H Blood Pressure 96/59 L Pulse Oximetry 96 96 95 03/31/20 02:05 03/31/20 03:56 03/31/20 04:00 Temperature Pulse Rate 105 H 109 H 96 Respiratory Rate 26 H Blood Pressure Pulse Oximetry 95 95 03/31/20 04:40 03/31/20 05:00 03/31/20 06:00 Temperature 36.2 C L Pulse Rate 94 103 H 94 Respiratory Rate 26 H 26 H Blood Pressure 106/73 106/66 Pulse Oximetry 97 95 92 03/31/20 06:23 03/31/20 08:00 03/31/20 08:02 Temperature 36.2 C L Pulse Rate 103 H 103 H 93 Respiratory Rate 25 H 26 H Blood Pressure 106/73 103/63 Pulse Oximetry 94 95 03/31/20 09:12 03/31/20 10:31 Temperature Pulse Rate 107 H 105 H Respiratory Rate Blood Pressure 94/63 L Pulse Oximetry 91 Intake/Output Intake/Output: Intake & Output 03/28/20 03/29/20 03/30/20 03/31/20 23:59 23:59 23:59 23:59 Intake Total 5535 685 9691 971 Output Total 850 475 600 400 Balance 645 387 836 571 Meds/Results Medications: Active Medications Generic Name Dose Route Start Last Admin Trade Name Freq PRN Reason Stop Dose Admin Acetaminophen 650 mg 03/24/20 17:09 03/27/20 20:41 Acetaminophen 325 Mg Tablet PO 650 mg Q4H PRN Administration Mild Pain (1-3) or Fever Albuterol 2 puff 03/24/20 20:52 Albuterol Sulfate (*Sp) Aerosol 1 Puff INHALATION Q6HRT PRN Shortness Of Breath Apixaban 5 mg 03/25/20 09:00
[2020-03-31 12:56] LABS: Glucose Point of Care 193 (65-105)
[2020-03-31 17:03] LABS: Alveolar/Arterial O2 Gradient 411.2 mmHg; Base Excess ABG 7.4 mEq/l (+/-2.0); Device VENTILATOR; Fractional Inspired Oxygen 75 %; HCO3 ABG 34.3 mEq/l (22.0-26.0); Oxygen Content ABG 16.8 %vol (16.0-22.0); Oxygen Saturation ABG 90.4 % (95.0-100.0); Oxyhemoglobin 90.7 % THb (90.0-100.0); PCO2 ABG 58.9 mmHg (35.0-45.0); PO2 FiO2 Ratio Arterial Blood 0.81 %; Site Drawn LEFT BRACHIAL; Total Hemoglobin 13.2 g/dL (12.0-18.0); pH ABG 7.383 (7.350-7.450)
[2020-03-31 17:04] LABS: Arterial Blood Gas PEEP 10 cmH2O; Arterial Blood Gas Tidal Volume 350 ml; Arterial Blood Gas Vent Mode CMV; Arterial Blood Gas Ventilator rate 26 /MIN
[2020-03-31 17:49] LABS: Glucose Point of Care 196 (65-105)
[2020-03-31] MEDS: FENTANYL 2,500MCG/NS250ML(*CRX 2,500 MCG/250 ML BAG 10 MCG IV CONT (23:45)
[2020-03-31] MEDS: NOREPINEPHRINE 8 MG/D5W 250 ML 8 MG/250 ML BAG 3.75 MG IV CONT (23:47)
[2020-04-01] VITALS (44 sets, daily range): BP systolic 89–117; BP diastolic 44–87; PULSE 89–152; RESP 23–28; TEMP 36.4–37.2; O2SAT 88–98
[2020-04-01 00:09] LABS: Glucose Point of Care 182 (65-105)
[2020-04-01] MEDS: EPOPROSTENOL SODIUM 0.5 MG VIAL 1 MG INHALATION ×5 (00:26→21:16)
[2020-04-01 04:45] LABS: Alveolar/Arterial O2 Gradient 444.6 mmHg; Base Excess ABG 5.7 mEq/l (+/-2.0); Fractional Inspired Oxygen 80 %; HCO3 ABG 33.3 mEq/l (22.0-26.0); Oxygen Saturation ABG 88.5 % (95.0-100.0); Oxyhemoglobin 89.5 % THb (90.0-100.0); PO2 ABG 59.4 mmHg (80.0-100.0); PO2 FiO2 Ratio Arterial Blood 0.74 %; Total Hemoglobin 12.7 g/dL (12.0-18.0); pH ABG 7.339 (7.350-7.450)
[2020-04-01 04:46] LABS: Device VENTILATOR; Modified Allen's Test Pass; PCO2 ABG 63.2 mmHg (35.0-45.0); Site Drawn RIGHT RADIAL
[2020-04-01 04:47] LABS: Arterial Blood Gas PEEP 5 cmH2O; Arterial Blood Gas Tidal Volume 350 ml; Arterial Blood Gas Vent Mode CMV; Arterial Blood Gas Ventilator rate 26 /MIN
[2020-04-01 05:19] LABS: Hemoglobin 11.5 g/dL (12.0-15.0); Immature Platelet Fraction Pct 10.5 % (0.9-11.2); Mean Corpuscular HGB Conc 31.9 g/dl (32-36); Mean Corpuscular Hemoglobin 29.9 pg (26-34); Mean Corpuscular Volume 93.8 fl (80-100); Mean Platelet Volume 11.5 fl (7.4-10.4); Platelet Count Result 81 k/mm3 (150-375); Red Blood Count 3.84 M/mm3 (4.2-5.4); Red Cell Distribution Width 14.2 % (11.5-14.5); White Blood Count 28.3 K/mm3 (4.5-10.0)
[2020-04-01] MEDS: CENTRAL LINE FLUSH 10 ML IV PUSH ×3 (05:42→20:33)
[2020-04-01 06:00] LABS: D Dimer 5.78 ug/mL (<0.48)
[2020-04-01 06:25] LABS: Alanine Aminotransferase 20 U/L (4-35); Alkaline Phosphatase 76 U/L (38-126); Aspartate Amino Transferase 26 U/L (14-36); Bilirubin,Total 0.6 mg/dL (0.2-1.3); Blood Urea Nitrogen 46 mg/dL (7-17); CRP 6.9 mg/dL (<1.0); Calcium 9.2 mg/dL (8.4-10.2); Carbon Dioxide > 40 mmol/L (22-30); Chloride 97 mmol/L (98-107); Estimated CRCL calculation 52 ml/min; Estimated Glomerular Filt Rate > 60; Glucose 208 mg/dL (65-105); Lactate Dehydrogenase 1224 U/L (313-618); Magnesium 1.9 mg/dL (1.6-2.3); Phosphorus 2.8 mg/dL (2.5-4.5); Potassium 4.4 mmol/L (3.4-5.0); Sodium 139 mmol/L (137-145)
[2020-04-01] MEDS: AMIODARONE 360 MG/D5W 200 ML 360 MG/200 ML BAG 33.33 MG IV CONT ×3 (08:14→19:42)
[2020-04-01] MEDS: ASCORBIC ACID 500 MG TABLET 1000 MG PO (08:27)
[2020-04-01] MEDS: DEXAMETHASONE SOD PHOS INJ 4 MG/ML VIAL 6 MG IV PUSH (08:27)
[2020-04-01] MEDS: CHOLECALCIFEROL 1,000 UNITS TABLET 1000 UNITS PO (08:27)
[2020-04-01] MEDS: ZINC SULFATE 220 MG CAPSULE PO (08:27)
[2020-04-01] MEDS: SIMVASTATIN 20 MG TABLET 40 MG PO (08:27)
[2020-04-01] MEDS: APIXABAN 5 MG TABLET PO ×2 (08:28→16:38)
[2020-04-01] MEDS: AMIODARONE 150 MG/D5W 100 ML 150 MG/100 ML BAG 600 MG IV CONT (08:37)
[2020-04-01] MEDS: ROCURONIUM BROMIDE 50 MG/5 ML VIAL IV PUSH (08:38)
--- NOTE | 2020-04-01 11:29 | WPDINTPN ---
Progress Note: A&P Assessment and Plan (1) Acute respiratory failure with hypoxia: Code(s): J96.01 - Acute respiratory failure with hypoxia Status: Acute Assessment and Plan: Patient failed Airvo and BiPAP with 100% FiO2 -on 03/28/2020: Patient was desaturating in the 70s and 80s on 100% BiPAP. Discussed with patient regarding intubation and placement on mechanical ventilation, she did not want to be intubated and placed on mechanical ventilation and wanted to be made comfort measures. After talking to her daughter Edwige on the phone, patient changed her mind and wanted to be intubated and placed on mechanical ventilation. Also discussed at length with Edwige, the daughter, and she wanted her mother to get the last chance. -intubation was uneventful on 03/28/2020 -currently on 100% % FiO2, peep of 10. Low tidal volume strategy. Will continue to wean FiO2 as tolerated -patient sedated with fentanyl and Versed infusion -patient on Flolan -patient dyssynchronous with the ventilator in desaturating, will start Nimbex infusion -sputum cultures growing Pseudomonas, started cefepime (2) Pneumonia due to COVID-19 virus: Code(s): U07.1 - COVID-19; J12.82 - Pneumonia due to coronavirus disease 2019 Status: Acute Assessment and Plan: SARS-CoV-2 PCR positive on 03/21/2020 -patient has been started on dexamethasone which was initiated on 03/25/2020 -infectious disease discontinued Remdesivir as it has no benefit for this patient -received 1 unit of convalescent plasma on 03/25/2020 -continue airborne, contact and droplet isolation/precautions -will add vitamin-C, vitamin D, zinc supplement to enhance immunity (3) Essential (primary) hypertension: Code(s): I10 - Essential (primary) hypertension Status: Chronic Assessment and Plan: Blood pressure is borderline will continue to hold all antihypertensive (4) Atrial fibrillation: Qualifiers: Atrial fibrillation type: unspecified Qualified Code(s): I48.91 - Unspecified atrial fibrillation Code(s): I48.91 - Unspecified atrial fibrillation Status: Acute Assessment and Plan: Patient went into AFib RVR, blood pressures have been stable -continue to monitor at this time -continue Eliquis -04/01/2020: Patient was rebolused with amiodarone as went into AFib RVR. Currently on amiodarone infusion at 1 mg/min (5) Hyperlipidemia: Qualifiers: Hyperlipidemia type: unspecified Qualified Code(s): E78.5 - Hyperlipidemia, unspecified Code(s): E78.5 - Hyperlipidemia, unspecified Status: Chronic Assessment and Plan: Continue simvastatin (6) DVT prophylaxis: Code(s): Z29.9 - Encounter for prophylactic measures, unspecified Status: Acute Assessment and Plan: Continue Eliquis (7) Shock: Code(s): R57.9 - Shock, unspecified Status: Acute Assessment and Plan: Patient with hypotension requiring low-dose Levophed, likely related to COVID-19 pneumonia, positive-pressure ventilation, sedation medications. -elevated WBC count, patient is afebrile -lactic acid is normal -03/30/2020 sputum cultures are negative so far, urine and blood cultures are pending (8) Pneumothorax: Code(s): J93.9 - Pneumothorax, unspecified Status: Acute Assessment and Plan: Patient has a small right apical pneumothorax, discussed in details with radiology, will continue to monitor closely with q.12 hours chest x-ray -if O2 sats decline or patient is hypotensive will obtain stat chest x-ray Additional Plan Discussed with daughter Edwige Iqbal and updated her with patient's condition and plan of care. Updated her regarding patient's oxygen levels, pneumothorax. Daughter is also aware Pseudomonas in sputum culture Code status: DNR Critical care time spent: 33 minutes Subjective Date/time seen: 04/01/20 11:29 Interval history: 84-year-old female presented to
[2020-04-01] MEDS: CISATRACURIUM BESYLATE 200 MG in DEXTROSE 5% 80 ML 6.92 ML IV CONT (11:37)
--- NOTE | 2020-04-01 12:06 | WPDINFPN2 ---
Progress Note: A&P Assessment and Plan (1) Pneumonia due to COVID-19 virus: Code(s): U07.1 - COVID-19; J12.82 - Pneumonia due to coronavirus disease 2019 Status: Acute Additional Plan 1. Dyspnea due to CoVid 19 pneumonia, symptom onset ~03/11, test 03/21. 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 3. Leukocytosis, due to # 1 and due to steroid, worse 4. Ptx, associated with mechanical ventilation 5. Pseudomonas isolation, scant, I think an airway colonizer and is not in need of treatment REC Dexamethasone # 9 / 10 days. No empiric antibacterials. Subjective Date/time seen: 04/01/20 12:06 Interval history: sedated and paralyzed, norepi Exam Narrative: Exam Narrative: afebrile Const: General: no acute distress Resp: Effort & Inspection: normal respiratory effort Auscultation: clear to auscultation bilaterally Cardio: Rhythm: abnormal rhythm Heart sounds: no murmurs and no rubs GI: Other: no masses Urinary Catheter: Urinary Catheter: patent and draining and urine clear Skin: General skin exam: normal color and no rashes or lesions noted Extrem: General: normal to inspection Objective Data Vital Signs Vital Signs: Vital Signs - 24 hr 03/31/20 12:12 03/31/20 13:57 03/31/20 14:00 Temperature Pulse Rate 97 107 H 116 H Respiratory Rate 28 H 19 Blood Pressure 106/71 Pulse Oximetry 92 91 89 L 03/31/20 15:35 03/31/20 15:57 03/31/20 16:00 Temperature 36.5 C Pulse Rate 113 H 103 H 106 H Respiratory Rate 26 H 26 H Blood Pressure 106/66 Pulse Oximetry 92 95 03/31/20 16:10 03/31/20 16:24 03/31/20 16:25 Temperature Pulse Rate 121 H 106 H 106 H Respiratory Rate 26 H 26 H Blood Pressure 99/68 L Pulse Oximetry 03/31/20 17:51 03/31/20 18:00 03/31/20 19:45 Temperature Pulse Rate 98 83 107 H Respiratory Rate 26 H 26 H Blood Pressure 112/57 L Pulse Oximetry 96 99 93 03/31/20 20:00 03/31/20 20:08 03/31/20 22:00 Temperature 36.6 C 37.1 C Pulse Rate 107 H 116 H 109 H Respiratory Rate 26 H 26 H Blood Pressure 112/66 114/70 101/66 Pulse Oximetry 93 91 03/31/20 23:15 03/31/20 23:45 03/31/20 23:47 Temperature Pulse Rate 112 H 116 H 118 H Respiratory Rate 26 H 26 H Blood Pressure 101/53 L Pulse Oximetry 91 04/01/20 00:00 04/01/20 00:40 04/01/20 02:00 Temperature 36.4 C L 36.6 C Pulse Rate 123 H 112 H 125 H Respiratory Rate 26 H 26 H 26 H Blood Pressure 112/87 100/63 Pulse Oximetry 89 L 91 89 L 04/01/20 02:25 04/01/20 02:26 04/01/20 04:00 Temperature 36.4 C L Pulse Rate 119 H 119 H 118 H Respiratory Rate 26 H 26 H Blood Pressure 103/57 L Pulse Oximetry 90 91 89 L 04/01/20 05:20 04/01/20 05:52 04/01/20 06:00 Temperature 36.4 C L Pulse Rate 126 H 126 H 125 H Respiratory Rate 26 H 26 H Blood Pressure 114/58 L Pulse Oximetry 90 90 89 L 04/01/20 08:00 04/01/20 08:08 04/01/20 08:12 Temperature Pulse Rate 122 H 140 H 130 H Respiratory Rate 28 H 26 H Blood Pressure Pulse Oximetry 88 L 04/01/20 08:13 04/01/20 08:14 04/01/20 08:37 Temperature Pulse Rate 138 H 140 H 152 H Respiratory Rate Blood Pressure 117/59 L Pulse Oximetry 04/01/20 08:40 04/01/20 08:46 04/01/20 10:00 Temperature 37.1 C Pulse Rate 124 H 123 H 122 H Respiratory Rate 28 H 28 H 28 H Blood Pressure 104/64 100/60 Pulse Oximetry 92 90 88 L 04/01/20 10:40 04/01/20 11:37 Temperature Pulse Rate 118 H 123 H Respiratory Rate 23 H 28 H Blood Pressure 102/52 L Pulse Oximetry 90 Intake/Output Intake/Output: Intake & Output 03/29/20 03/30/20 03/31/20 04/01/20 23:59 23:59 23:59 23:59 Intake Total 670 1436 2088 1050 Output Total 475 600 800 400 Balance 369 017 2448 650 Meds/Results Medications: Active Medications Generic Name Dose Route Start Last Admin Trade Name Freq PRN Reason Stop Dose Admin Acetaminophen 650 mg 03/24/20 17:09 03/27/20 20:41 Acetaminophen 325 Mg Tablet PO 650 mg Q
[2020-04-01 13:01] LABS: Glucose Point of Care 200 (65-105)
[2020-04-01 17:13] LABS: Alveolar/Arterial O2 Gradient 566.3 mmHg; Base Excess ABG 5.6 mEq/l (+/-2.0); Fractional Inspired Oxygen 100 %; Oxygen Content ABG 17.1 %vol (16.0-22.0); Oxyhemoglobin 97.2 % THb (90.0-100.0); PCO2 ABG 42.9 mmHg (35.0-45.0); PO2 ABG 103.8 mmHg (80.0-100.0); PO2 FiO2 Ratio Arterial Blood 1.04 %; Total Hemoglobin 12.4 g/dL (12.0-18.0); pH ABG 7.463 (7.350-7.450)
[2020-04-01 17:14] LABS: Arterial Blood Gas Vent Mode CMV; Arterial Blood Gas Ventilator rate 28 /MIN; Device VENTILATOR; Modified Allen's Test Pass; Site Drawn RIGHT RADIAL
[2020-04-01 17:15] LABS: Arterial Blood Gas PEEP 10 cmH2O; Arterial Blood Gas Tidal Volume 400 ml
[2020-04-01 17:27] LABS: Glucose Point of Care 156 (65-105)
[2020-04-01] MEDS: CISATRACURIUM BESYLATE 200 MG in DEXTROSE 5% 80 ML 11.54 ML IV CONT (18:56)
[2020-04-01] MEDS: FENTANYL 2,500MCG/NS250ML(*CRX 2,500 MCG/250 ML BAG 12.5 MCG IV CONT (19:00)
[2020-04-01 23:44] LABS: Glucose Point of Care 164 (65-105)
[2020-04-02] VITALS (45 sets, daily range): BP systolic 75–108; BP diastolic 38–88; PULSE 72–155; RESP 26–28; TEMP 36.6–38.6; O2SAT 84–100
[2020-04-02] MEDS: AMIODARONE 360 MG/D5W 200 ML 360 MG/200 ML BAG 33.33 MG IV CONT ×5 (01:19→23:16)
[2020-04-02] MEDS: EPOPROSTENOL SODIUM 0.5 MG VIAL 1 MG INHALATION ×5 (01:55→22:44)
[2020-04-02] MEDS: CISATRACURIUM BESYLATE 200 MG in DEXTROSE 5% 80 ML 11.54 ML IV CONT ×3 (04:48→19:44)
[2020-04-02] MEDS: NOREPINEPHRINE 8 MG/D5W 250 ML 8 MG/250 ML BAG 11.25 MG IV CONT (04:49)
[2020-04-02 04:54] LABS: Alveolar/Arterial O2 Gradient 597.6 mmHg; Base Excess ABG 6.9 mEq/l (+/-2.0); Fractional Inspired Oxygen 100 %; HCO3 ABG 34.1 mEq/l (22.0-26.0); Oxygen Content ABG 17.3 %vol (16.0-22.0); Oxygen Saturation ABG 87.3 % (95.0-100.0); PO2 ABG 55.4 mmHg (80.0-100.0); PO2 FiO2 Ratio Arterial Blood 0.55 %; Total Hemoglobin 14.2 g/dL (12.0-18.0); pH ABG 7.373 (7.350-7.450)
[2020-04-02 04:57] LABS: Device VENTILATOR; Modified Allen's Test Unable to perform; Site Drawn RIGHT RADIAL
[2020-04-02 04:58] LABS: Arterial Blood Gas PEEP 10 cmH2O; Arterial Blood Gas Tidal Volume 400 ml; Arterial Blood Gas Vent Mode CMV; Arterial Blood Gas Ventilator rate 28 /MIN
[2020-04-02] MEDS: AMIODARONE 150 MG/D5W 100 ML 150 MG/100 ML BAG 600 MG IV CONT ×2 (05:00→19:34)
[2020-04-02] MEDS: CENTRAL LINE FLUSH 10 ML IV PUSH ×3 (05:07→22:07)
[2020-04-02 05:24] LABS: Hematocrit 38.4 % (37.0-47.0); Hemoglobin 12.6 g/dL (12.0-15.0); Immature Platelet Fraction Pct 12.7 % (0.9-11.2); Mean Corpuscular HGB Conc 32.8 g/dl (32-36); Mean Corpuscular Hemoglobin 30.6 pg (26-34); Mean Corpuscular Volume 93.2 fl (80-100); Mean Platelet Volume 12.4 fl (7.4-10.4); Platelet Count Result 60 k/mm3 (150-375); Red Blood Count 4.12 M/mm3 (4.2-5.4); Red Cell Distribution Width 14.1 % (11.5-14.5); White Blood Count 42.5 K/mm3 (4.5-10.0)
[2020-04-02 05:33] LABS: Alanine Aminotransferase 19 U/L (4-35); Albumin Level 2.9 g/dL (3.5-5.1); Alkaline Phosphatase 95 U/L (38-126); Anion Gap 1 mmol/L (8-16); Aspartate Amino Transferase 36 U/L (14-36); Bilirubin,Total 0.8 mg/dL (0.2-1.3); Blood Urea Nitrogen 40 mg/dL (7-17); Carbon Dioxide 39 mmol/L (22-30); Chloride 94 mmol/L (98-107); Estimated CRCL calculation 60 ml/min; Estimated Glomerular Filt Rate > 60; Glucose 239 mg/dL (65-105); Magnesium 1.8 mg/dL (1.6-2.3); Phosphorus 3.2 mg/dL (2.5-4.5); Potassium 4.3 mmol/L (3.4-5.0); Sodium 134 mmol/L (137-145)
[2020-04-02] MEDS: INSULIN ASPART (*BKC) 100 UNITS/ML SUB-Q (06:00)
[2020-04-02 06:03] LABS: Thyroid Stimulating Hormone 0.636 uIU/mL (0.465-4.680)
[2020-04-02] MEDS: APIXABAN 5 MG TABLET PO ×2 (08:03→17:53)
[2020-04-02] MEDS: ASCORBIC ACID 500 MG TABLET 1000 MG PO (08:03)
[2020-04-02] MEDS: CHOLECALCIFEROL 1,000 UNITS TABLET 1000 UNITS PO (08:04)
[2020-04-02] MEDS: DEXAMETHASONE SOD PHOS INJ 4 MG/ML VIAL 6 MG IV PUSH (08:04)
[2020-04-02] MEDS: ZINC SULFATE 220 MG CAPSULE PO (08:05)
[2020-04-02] MEDS: SIMVASTATIN 20 MG TABLET 40 MG PO (08:05)
--- NOTE | 2020-04-02 11:11 | WPDINTPN ---
Progress Note: A&P Assessment and Plan (1) Acute respiratory failure with hypoxia: Code(s): J96.01 - Acute respiratory failure with hypoxia Status: Acute Assessment and Plan: Patient failed Airvo and BiPAP with 100% FiO2 -on 03/28/2020: Patient was desaturating in the 70s and 80s on 100% BiPAP. Discussed with patient regarding intubation and placement on mechanical ventilation, she did not want to be intubated and placed on mechanical ventilation and wanted to be made comfort measures. After talking to her daughter Edwige on the phone, patient changed her mind and wanted to be intubated and placed on mechanical ventilation. Also discussed at length with Edwige, the daughter, and she wanted her mother to get the last chance. -intubation was uneventful on 03/28/2020 -currently on 100% % FiO2, peep of 10. Low tidal volume strategy. Will continue to wean FiO2 as tolerated -patient sedated with fentanyl and Versed infusion and NMB -patient on Flolan -patient dyssynchronous with the ventilator in desaturating, will start Nimbex infusion -sputum cultures growing Pseudomonas, started cefepime - For right pneumothorax -daily prone ventilation (2) Pneumonia due to COVID-19 virus: Code(s): U07.1 - COVID-19; J12.82 - Pneumonia due to coronavirus disease 2019 Status: Acute Assessment and Plan: SARS-CoV-2 PCR positive on 03/21/2020 -patient has been started on dexamethasone which was initiated on 03/25/2020 -infectious disease discontinued Remdesivir as it has no benefit for this patient -received 1 unit of convalescent plasma on 03/25/2020 -continue airborne, contact and droplet isolation/precautions -on vitamin-C, vitamin D, zinc supplement (3) Essential (primary) hypertension: Code(s): I10 - Essential (primary) hypertension Status: Chronic Assessment and Plan: Blood pressure is borderline will continue to hold all antihypertensive (4) Atrial fibrillation: Qualifiers: Atrial fibrillation type: unspecified Qualified Code(s): I48.91 - Unspecified atrial fibrillation Code(s): I48.91 - Unspecified atrial fibrillation Status: Acute Assessment and Plan: Patient went into AFib RVR, -received amiodarone bolus and currently on amio infusion -continue to monitor at this time -continue Eliquis (5) Hyperlipidemia: Qualifiers: Hyperlipidemia type: unspecified Qualified Code(s): E78.5 - Hyperlipidemia, unspecified Code(s): E78.5 - Hyperlipidemia, unspecified Status: Chronic Assessment and Plan: Continue simvastatin (6) DVT prophylaxis: Code(s): Z29.9 - Encounter for prophylactic measures, unspecified Status: Acute Assessment and Plan: Continue Eliquis (7) Shock: Code(s): R57.9 - Shock, unspecified Status: Acute Assessment and Plan: Patient with hypotension requiring low-dose Levophed, likely related to COVID-19 pneumonia, positive-pressure ventilation, sedation medications. -elevated WBC count, patient is afebrile -lactic acid is normal -03/30/2020 sputum cultures are negative so far, urine and blood cultures are pending (8) Pneumothorax: Code(s): J93.9 - Pneumothorax, unspecified Status: Acute Assessment and Plan: -consult surgery for chest tube placement Additional Plan DVT prophylaxis -Eliquis Stress ulcer prophylaxis -add PPI Nutrition - Tube Feeds Code Status - Full Code Code status: DNR Total Critical Care Time - 32 minutes Due to a high probability of clinically significant, life threatening deterioration, the patient required my highest level of preparedness to intervene emergently and I personally spent this critical care time directly and personally managing the patient. This critical care time included obtaining a history; examining the patient; pulse oximetry; ordering and review of studies; arranging urgent treatment with development of a john
[2020-04-02 12:04] LABS: Glucose Point of Care 171 (65-105)
--- NOTE | 2020-04-02 12:05 | PM.CNGS ---
Assessment and Plan Assessment and plan (1) Pneumothorax: Code(s): J93.9 - Pneumothorax, unspecified Status: Acute Assessment and Plan: Small right apical pneumothorax first noted on yesterday's chest x-ray. Repeat chest x-ray today looks unchanged. I discussed the case and plan of care with Dr. Maldonado. He will come in to place a right-sided chest tube today at the bedside. Will obtain consent and gather supplies for the procedure. Following placement, we will plan to put the chest tube to wall suction and continue to monitor with serial imaging. Thank you for the consultation and we will continue to follow along with you. (2) Shock: Code(s): R57.9 - Shock, unspecified Status: Acute Assessment and Plan: [place] to be related to COVID-19 pneumonia. WBC continues to increase. Requiring vasopressor support. Negative sputum cultures. Blood cx pending. Continue management per Asset Accountant/Hospitalist. (3) Pneumonia due to COVID-19 virus: Code(s): U07.1 - COVID-19; J12.82 - Pneumonia due to coronavirus disease 2019 Status: Acute Assessment and Plan: With acute respiratory failure, intubated in the ICU. On appropriate isolation precautions. Continue management per ID/Asset Accountant. (4) Acute respiratory failure with hypoxia: Code(s): J96.01 - Acute respiratory failure with hypoxia Status: Acute Assessment and Plan: Due to above. On mechanical ventilator. Continue management per Asset Accountant. (5) Atrial fibrillation: Qualifiers: Atrial fibrillation type: unspecified Qualified Code(s): I48.91 - Unspecified atrial fibrillation Code(s): I48.91 - Unspecified atrial fibrillation Status: Acute Assessment and Plan: Management per primary service. (6) Essential (primary) hypertension: Code(s): I10 - Essential (primary) hypertension Status: Chronic Assessment and Plan: Management per primary service. (7) Anticoagulant long-term use: Code(s): Z79.01 - custodial (current) use of anticoagulants Status: Acute Assessment and Plan: Currently on Eliquis for a. fib. 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 She is currently intubated, sedated, and on paralytics in the ICU, therefore is unable to provide history. Her history is obtained through review of her electronic medical record. Her and her began feeling ill around March 11 with symptoms of a sore throat, cough, and fatigue. They eventually were tested for COVID-19 on March 21 and results were positive. She went to the infusion center for monoclonal antibody, but developed shortness of breath and hypotension, therefore was sent to the ER for evaluation. She was found to be hypoxic and was admitted to the Hospitalist service on 03/24/20 for further care. Due to acute respiratory failure, she was ultimately intubated on 03/28/20 in the ICU. She has since also developed hypotension and shock, requiring vasopressor support. She is now on paralytics and Flolan in the ICU. Yesterday's chest x-ray showed development of a small right apical pneumothorax. She has had some issues with hypoxia on her current ventilator settings since yesterday, with O2 saturation in 80's to low 90's. Repeat chest x-ray this morning showed still a small right pneumothorax. The Asset Accountant has now consulted our service for chest tube placement. The patient is now seen in the ICU. She is now on FiO2 100% and PEEP of 10 on the ventilator with an oxygen saturation of 86%. Per the nurse, her is also admitted to the hospital for COVID-19. Review of Systems Review of Systems: ROS unobtainable: Yes unobtainable due to endotracheal tube and unobta
[2020-04-02] MEDS: FENTANYL 2,500MCG/NS250ML(*CRX 2,500 MCG/250 ML BAG 12.5 MCG IV CONT (13:01)
--- NOTE | 2020-04-02 13:32 | PCDIET ---
ICU Rounding Note: Tube feedings previously held for prone positioning; however, patient now receiving Vital 1.2 at 50mL/hr goal rate with 30mL water flush every 4 hours. Last recorded weight is 77kg which has increased from last review. Bowel Motility: No documented BM. Labs Reviewed: Glu (239), BUN (40), Cr (0.6), Na (134), Alb (2.9) Meds Noted: Albuterol, Vitamin C, Cefepime, Nimbex, Decadron, Fentanyl, Levophed, Versed, Protonix, Zocor, Zinc Sulfate, Vitamin D Additional Notes: No documented skin breakdown. Following daily in ICU rounds. Assessing/reassessing every Monday/Monday.
--- NOTE | 2020-04-02 14:35 | P.OP_ITS ---
Procedure Note - Detailed Date of procedure: 04/02/20 Pre-op diagnosis: acute hypoxia respiratory failure covid pneumoni right sided pneumothorax Post-op diagnosis: same Procedure performed: placement of rightl 20 Portuguese chest tube Description of procedure: The patient was in the ICU already intubated and sedated. A time-out was then done to verify the patient's identity, as well as the procedure being performed. I began with the right side and prepped and draped the right chest wall in normal sterile fashion. I then localized the area of our anticipated incision which was at the anterior axillary line at the level of the nipple. Once this was done, an incision was carried down through the skin and into the subcutaneous tissue. I then used a Marcelle clamp to gain access into the pleural space over the 4th rib space. A lozano of air was noted upon gaining access. I then placed a 20 Portuguese chest tube into the right chest. This was directed posterior and superior. I then sutured the chest tube into position. Vaseline gauze and sterile dressing were placed and the tube was connected to the atrium. Patient continues to be in critical condition in the ICU. Implants: rightl 20 Portuguese chest tube Anesthesia: local Surgeon: Jazmyn Maldonado MD Estimated blood loss (mL): 5 Drains: No Packing: No Pathology: none sent Complications: No immediate complications Condition: critical Disposition: ICU Findings: R PTX s/p R CT
--- NOTE | 2020-04-02 14:54 | PC.NURSE ---
1448 updated daughter Edwige condition. Discussed possible comfort measures and compassionate weaning. Edwige will discuss with brother and call back. Emotional support given.
--- NOTE | 2020-04-02 15:05 | PM.EVENT ---
Event Note Event Note Event Note: Chest tube was placed on right side by general surgery. Post chest tube patient desaturated. Chest x-ray was done and reviewed and showed adequate placement of chest tube. Patient was bag ventilated with PEEP valve. Patient required prolonged ventilation with Ambu bag for sats to improved to up to 80s. Patient has severe scoliosis leading her to be hunched were her left side. Breath sounds equal on both sides and present. Patient easy to back. Patient was reposition with pillows on her left side to bring her as much as possible in midline. Status remained in mid 80s. Peep was increased to 18. Patient now is going to be proned. Nurse Sarah spoke to patient's daughter by phone and updated her with events.. Additional critical care time 20 minutes
[2020-04-02 17:49] LABS: Glucose Point of Care 200 (65-105)
[2020-04-02] MEDS: NOREPINEPHRINE 8 MG/D5W 250 ML 8 MG/250 ML BAG 48.75 MG IV CONT (18:36)
[2020-04-02] MEDS: SODIUM CHLORIDE 0.9% IV 500 ML 999 ML IV CONT ×2 (19:36→22:03)
[2020-04-02] MEDS: VASOPRESSIN INJ 100 UNITS in DEXTROSE 5% 95 ML IV CONT (19:44)
[2020-04-02 21:27] LABS: Hematocrit 35.7 % (37.0-47.0); Hemoglobin 11.4 g/dL (12.0-15.0); Immature Platelet Fraction Pct 18.6 % (0.9-11.2); Mean Corpuscular HGB Conc 31.9 g/dl (32-36); Mean Corpuscular Hemoglobin 30.3 pg (26-34); Mean Corpuscular Volume 94.9 fl (80-100); Mean Platelet Volume 11.7 fl (7.4-10.4); Platelet Count Result 57 k/mm3 (150-375); Red Blood Count 3.76 M/mm3 (4.2-5.4); Red Cell Distribution Width 14.5 % (11.5-14.5)
[2020-04-02 21:33] LABS: Alveolar/Arterial O2 Gradient 547.4 mmHg; Carboxyhemoglobin 0.3 % THb (0-2.0); Device VENTILATOR; Fractional Inspired Oxygen 100 %; HCO3 ABG 27.3 mEq/l (22.0-26.0); Methemoglobin ABG 0.1 %THb (0-1.5); Modified Allen's Test Pass; Oxygen Content ABG 18.3 %vol (16.0-22.0); Oxygen Saturation ABG 96.8 % (95.0-100.0); Oxyhemoglobin 96.5 % THb (90.0-100.0); PO2 ABG 103.6 mmHg (80.0-100.0); PO2 FiO2 Ratio Arterial Blood 1.04 %; Reduced Hemoglobin 3.1 %THb (0-5.0); Site Drawn LEFT RADIAL; Total Hemoglobin 13.4 g/dL (12.0-18.0); pH ABG 7.261 (7.350-7.450)
--- NOTE | 2020-04-02 21:33 | PC.NURSE ---
Pt DTR Edwige given update about pt condition. Re confirmed DNR status.
[2020-04-02 21:34] LABS: Arterial Blood Gas PEEP 18 cmH2O; Arterial Blood Gas Vent Mode CMV; Arterial Blood Gas Ventilator rate 28 /MIN
[2020-04-02 21:35] LABS: Arterial Blood Gas Tidal Volume 400 ml
[2020-04-02 21:39] LABS: Anion Gap 4 mmol/L (8-16); Blood Urea Nitrogen 54 mg/dL (7-17); Calcium 8.7 mg/dL (8.4-10.2); Carbon Dioxide 33 mmol/L (22-30); Chloride 93 mmol/L (98-107); Estimated CRCL calculation 31 ml/min; Estimated Glomerular Filt Rate 43; Glucose 209 mg/dL (65-105); Potassium 5.3 mmol/L (3.4-5.0); Sodium 130 mmol/L (137-145)
[2020-04-02 21:43] LABS: Neutrophils Percent Manual 81 % (46-73); Total Cells Counted 100
[2020-04-02 21:44] LABS: Band Neutrophils Percent 5 % (0-6); Lymphocytes Absolute Manual 2.55 K/mm3 (1.1-4.5); Lymphocytes Percent Manual 5 % (18-44); Metamyelocytes Percent 2 %; Monocytes Absolute Manual 3.06 K/mm3 (0.1-0.90); Monocytes Percent Manual 6 % (3-9); Neutrophils Absolute Manual 43.86 K/mm3 (1.7-7.2); Platelet Estimate Decreased (Adequate); Promyelocytes Percent 1 %
[2020-04-02] MEDS: SODIUM BICARBONATE 8.4% 50 MEQ/50 ML SYRINGE IV PUSH (22:03)
[2020-04-02] MEDS: NOREPINEPHRINE 8 MG/D5W 250 ML 8 MG/250 ML BAG 56.25 MG IV CONT (23:16)
[2020-04-02] MEDS: ACETAMINOPHEN 650 MG SUPPOSITORY RECTAL (23:16)
[2020-04-02] MEDS: ALBUMIN HUMAN 25% 25 GM/100 ML 100 ML IVPB (23:37)
[2020-04-03] VITALS (33 sets, daily range): BP systolic 88–145; BP diastolic 54–84; PULSE 90–130; RESP 28–30; TEMP 37–37.7; O2SAT 36–96
[2020-04-03] MEDS: EPINEPHrine INJ 1 MG in DEXTROSE 5% IN WATER 250 ML 15.06 MG IV CONT (00:29)
[2020-04-03 03:45] LABS: Alveolar/Arterial O2 Gradient 501.5 mmHg; Base Excess ABG 0.9 mEq/l (+/-2.0); Carboxyhemoglobin 0.3 % THb (0-2.0); Fractional Inspired Oxygen 100 %; HCO3 ABG 28.6 mEq/l (22.0-26.0); Methemoglobin ABG 0.3 %THb (0-1.5); Oxygen Content ABG 15.8 %vol (16.0-22.0); Oxygen Saturation ABG 98.6 % (95.0-100.0); Oxyhemoglobin 97.8 % THb (90.0-100.0); PO2 ABG 150.3 mmHg (80.0-100.0); Reduced Hemoglobin 1.6 %THb (0-5.0); Total Hemoglobin 11.3 g/dL (12.0-18.0)
[2020-04-03 03:46] LABS: pH ABG 7.287 (7.350-7.450)
[2020-04-03 03:47] LABS: Arterial Blood Gas PEEP 18 cmH2O; Arterial Blood Gas Tidal Volume 400 ml; Arterial Blood Gas Vent Mode CMV; Arterial Blood Gas Ventilator rate 28 /MIN; Device VENTILATOR; Modified Allen's Test Pass; PCO2 ABG 61.2 mmHg (35.0-45.0); Site Drawn LEFT RADIAL
[2020-04-03] MEDS: FENTANYL 2,500MCG/NS250ML(*CRX 2,500 MCG/250 ML BAG 10 MCG IV CONT (03:51)
[2020-04-03] MEDS: NOREPINEPHRINE 8 MG/D5W 250 ML 8 MG/250 ML BAG 56.25 MG IV CONT ×2 (03:52→10:59)
[2020-04-03] MEDS: EPOPROSTENOL SODIUM 0.5 MG VIAL 1 MG INHALATION ×2 (05:14→11:20)
[2020-04-03 05:31] LABS: Hematocrit 32.9 % (37.0-47.0); Hemoglobin 10.4 g/dL (12.0-15.0); Immature Platelet Fraction Pct 22.6 % (0.9-11.2); Mean Corpuscular HGB Conc 31.6 g/dl (32-36); Mean Corpuscular Hemoglobin 30.3 pg (26-34); Mean Corpuscular Volume 95.9 fl (80-100); Mean Platelet Volume 13.2 fl (7.4-10.4); Platelet Count Result 53 k/mm3 (150-375); Red Blood Count 3.43 M/mm3 (4.2-5.4); Red Cell Distribution Width 14.6 % (11.5-14.5); White Blood Count 45.7 K/mm3 (4.5-10.0)
[2020-04-03] MEDS: CENTRAL LINE FLUSH 10 ML IV PUSH ×2 (05:44→14:27)
[2020-04-03] MEDS: AMIODARONE 360 MG/D5W 200 ML 360 MG/200 ML BAG 33.33 MG IV CONT ×2 (05:44→11:07)
[2020-04-03 05:52] LABS: Alanine Aminotransferase 366 U/L (4-35); Alkaline Phosphatase 100 U/L (38-126); Anion Gap 5 mmol/L (8-16); Aspartate Amino Transferase 528 U/L (14-36); Blood Urea Nitrogen 57 mg/dL (7-17); Calcium 8.4 mg/dL (8.4-10.2); Carbon Dioxide 35 mmol/L (22-30); Chloride 91 mmol/L (98-107); Estimated CRCL calculation 24 ml/min; Estimated Glomerular Filt Rate 31; Glucose 221 mg/dL (65-105); Magnesium 1.9 mg/dL (1.6-2.3); Potassium 4.9 mmol/L (3.4-5.0); Sodium 131 mmol/L (137-145)
[2020-04-03] MEDS: INSULIN ASPART (*BKC) 100 UNITS/ML SUB-Q (05:57)
[2020-04-03 06:17] LABS: Thyroid Stimulating Hormone 0.476 uIU/mL (0.465-4.680)
[2020-04-03 07:40] LABS: Lactate Dehydrogenase 2449 U/L (313-618)
[2020-04-03] MEDS: SIMVASTATIN 20 MG TABLET 40 MG PO (08:20)
[2020-04-03] MEDS: ZINC SULFATE 220 MG CAPSULE PO (08:21)
[2020-04-03] MEDS: PANTOPRAZOLE SODIUM IV 40 MG VIAL IV PUSH (08:21)
[2020-04-03] MEDS: ASCORBIC ACID 500 MG TABLET 1000 MG PO (08:21)
[2020-04-03] MEDS: DEXAMETHASONE SOD PHOS INJ 4 MG/ML VIAL 6 MG IV PUSH (08:21)
[2020-04-03] MEDS: CHOLECALCIFEROL 1,000 UNITS TABLET 1000 UNITS PO (08:21)
[2020-04-03] MEDS: APIXABAN 5 MG TABLET PO (08:21)
[2020-04-03] MEDS: SODIUM BICARBONATE 8.4% 50 MEQ/50 ML SYRINGE 100 MEQ IV PUSH (08:26)
[2020-04-03 09:02] LABS: Ferritin > 2000.00 ng/mL (11.1-264)
[2020-04-03 09:45] LABS: CRP 37.8 mg/dL (<1.0)
[2020-04-03 10:01] LABS: Lactic Acid Reflex 2.3 mmol/L (0.7-2.1)
[2020-04-03] MEDS: CISATRACURIUM BESYLATE 200 MG in DEXTROSE 5% 80 ML 11.54 ML IV CONT (10:13)
--- NOTE | 2020-04-03 11:14 | WPDINTPN ---
Progress Note: A&P Assessment and Plan (1) Acute respiratory failure with hypoxia: Code(s): J96.01 - Acute respiratory failure with hypoxia Status: Acute Assessment and Plan: Patient failed Airvo and BiPAP with 100% FiO2 -on 03/28/2020: Patient was desaturating in the 70s and 80s on 100% BiPAP. Discussed with patient regarding intubation and placement on mechanical ventilation, she did not want to be intubated and placed on mechanical ventilation and wanted to be made comfort measures. After talking to her daughter Edwige on the phone, patient changed her mind and wanted to be intubated and placed on mechanical ventilation. Also discussed at length with Edwige, the daughter, and she wanted her mother to get the last chance. -intubation was uneventful on 03/28/2020 -currently on 100% % FiO2, peep of 18 -I decreased the PEEP to 16 this morning after noticing pneumothorax on left -respiratory rate increased to 30 due to respiratory acidosis -patient sedated with fentanyl and Versed infusion and NMB -patient on Flolan -sputum cultures growing Pseudomonas and patient is on cefepime -daily prone ventilation -advance ET tube by 3 cm (2) Pneumothorax: Code(s): J93.9 - Pneumothorax, unspecified Status: Acute Assessment and Plan: Patient had right-sided pneumothorax and chest tube was placed by surgery on04/02 Chest x-ray this morning showed new pneumothorax on left. General surgery consulted for chest tube placement the left side. Dr. Maldonado was consulted again (3) Pneumonia due to COVID-19 virus: Code(s): U07.1 - COVID-19; J12.82 - Pneumonia due to coronavirus disease 2019 Status: Acute Assessment and Plan: SARS-CoV-2 PCR positive on 03/21/2020 -patient has been started on dexamethasone which was initiated on 03/25/2020 -infectious disease discontinued Remdesivir as it has no benefit for this patient -received 1 unit of convalescent plasma on 03/25/2020 -continue airborne, contact and droplet isolation/precautions -on vitamin-C, vitamin D, zinc supplement (4) Shock: Code(s): R57.9 - Shock, unspecified Status: Acute Assessment and Plan: Patient with hypotension requiring low-dose Levophed, likely related to COVID-19 pneumonia, positive-pressure ventilation, sedation medications. -03/30/2020 sputum cultures a grew Pseudomonas and patient is on cefepime -overnight patient's pressor requirement increased. She is currently on levo and vasopressin -1 L saline bolus was given overnight along with 25% albumin -IV bicarb was given for acidosis (5) Atrial fibrillation: Qualifiers: Atrial fibrillation type: unspecified Qualified Code(s): I48.91 - Unspecified atrial fibrillation Code(s): I48.91 - Unspecified atrial fibrillation Status: Acute Assessment and Plan: Patient went into AFib RVR, -received amiodarone bolus and currently on amio infusion -continue to monitor at this time -continue Eliquis -monitor hemoglobin (6) Hyperlipidemia: Qualifiers: Hyperlipidemia type: unspecified Qualified Code(s): E78.5 - Hyperlipidemia, unspecified Code(s): E78.5 - Hyperlipidemia, unspecified Status: Chronic Assessment and Plan: Continue simvastatin (7) DVT prophylaxis: Code(s): Z29.9 - Encounter for prophylactic measures, unspecified Status: Acute Assessment and Plan: Continue Eliquis Additional Plan I had extensive discussion with patient's daughter and son-in-law by phone today. I updated them with patient's current condition and deterioration over last 24-48 hours. Her persistent and severe hypoxia requiring high PEEP and FiO2, Flolan, prone positioning and neuromuscular blockers, her worsening shock requiring multiple vasopressors. I also updated them with new finding of pneumothorax on the left and need for another chest tube. I did explain the patient's prognosis is poor and she may not surv
--- NOTE | 2020-04-03 11:21 | PCDIET ---
Nutrition Follow-Up Complete: Nutrition Diagnosis: Predicted suboptimal oral intake related to decreased appetite as evidenced by RN reports, patient reporting poor appetite/weight loss on admission. Nutrition Goal: Patient to meet estimated nutritional needs. Goal in progress. Tube feedings currently on hold for chest tube placement (had one placed on 04/02/20 also). Previously tolerating Vital 1.2 at 50mL/hr goal rate. Expect tube feedings to resume after procedure once supine. Last recorded weight is 76.4 kg which is stable with last review. Bowel Motility: Last documented BM on 03/26/20. Recommend adding medications to promote BM after procedure. Labs Reviewed: Hgb (10.4), Hct (32.9), Glu (221), BUN (57), Cr (1.6), Na (131), Alb (3.0), PO4 (5.0) Meds Noted: Albuterol, Vitamin C, Cefepime, Versed, Levophed, Nimbex, Epinephrine, Fentanyl, Novolog, Protonix, Zocor, Vasopressin, Vitamin D, Zinc Sulfate Additional Notes: No documented pressure sores. Will continue to monitor with same goal. Nutrition Monitoring and Evaluation: Follow up every Monday/Monday. Follow daily in ICU rounds.
--- NOTE | 2020-04-03 11:46 | P.OP_ITS ---
Procedure Note - Detailed Date of procedure: 04/03/20 Pre-op diagnosis: acute hypoxia respiratory failure covid pneumoni left pneumothorax Post-op diagnosis: same Procedure performed: placement of left 20 [place] chest tube Description of procedure: The patient was in the ICU already intubated and sedated. A time-out was then done to verify the patient's identity, as well as the procedure being performed. I began with the left side and prepped and draped the left chest wall in normal sterile fashion. I then localized the area of our anticipated incision which was at the anterior axillary line at the level of the nipple. Once this was done, an incision was carried down through the skin and into the subcutaneous tissue. I then used a Marcelle clamp to gain access into the pleural space over the 4th rib space. A lozano of air was noted upon gaining access. I then placed a 20 [place] chest tube into the left chest. This was directed posterior and superior. I then sutured the chest tube into position. Vaseline gauze and sterile dressing were placed and the tube was connected to the atrium. Patient continues to be in critical condition in the ICU. Implants: left 20 Indonesian chest tube Anesthesia: local Surgeon: Jazmyn Maldonado MD Estimated blood loss (mL): 5 Drains: No Packing: No Pathology: none sent Complications: No immediate complications Condition: critical Disposition: ICU Findings: left pneumothorax status post left chest tube
[2020-04-03 12:22] LABS: Glucose Point of Care 192 (65-105)
[2020-04-03] MEDS: INSULIN GLARGINE (*BKC) 100 UNITS/ML 15 UNITS SUB-Q (12:34)
[2020-04-03 12:45] LABS: Reflex Lactic Acid Yes or No Add Lactic
[2020-04-03 14:50] LABS: Alveolar/Arterial O2 Gradient 403.2 mmHg; Base Excess ABG 2.3 mEq/l (+/-2.0); Carboxyhemoglobin 0.3 % THb (0-2.0); Fractional Inspired Oxygen 90 %; HCO3 ABG 29.8 mEq/l (22.0-26.0); Methemoglobin ABG 0.2 %THb (0-1.5); Oxygen Content ABG 15.8 %vol (16.0-22.0); Oxyhemoglobin 98.2 % THb (90.0-100.0); PO2 ABG 175.7 mmHg (80.0-100.0); PO2 FiO2 Ratio Arterial Blood 1.95 %; Reduced Hemoglobin 1.3 %THb (0-5.0); Total Hemoglobin 11.2 g/dL (12.0-18.0); pH ABG 7.305 (7.350-7.450)
[2020-04-03 14:52] LABS: Device VENTILATOR; Modified Allen's Test Pass; PCO2 ABG 61.3 mmHg (35.0-45.0); Site Drawn LEFT RADIAL
[2020-04-03 14:53] LABS: Arterial Blood Gas PEEP 16 cmH2O; Arterial Blood Gas Tidal Volume 400 ml; Arterial Blood Gas Vent Mode CMV; Arterial Blood Gas Ventilator rate 30 /MIN
--- NOTE | 2020-04-03 15:05 | WPDINFPN2 ---
Progress Note: A&P Assessment and Plan (1) Pneumonia due to COVID-19 virus: Code(s): U07.1 - COVID-19; J12.82 - Pneumonia due to coronavirus disease 2019 Status: Acute Additional Plan 1. Dyspnea due to CoVid 19 pneumonia, symptom onset ~03/11, test 03/21. 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 3. Multifactorial leukocytosis 4. Bilateral Ptx, associated with mechanical ventilation, with bilateral chest tubes 5. Pseudomonas isolation, airway colonizer REC Dexamethasone completed today. No empiric antibacterials. Increasingly dire prognosis Subjective Date/time seen: 04/03/20 15:05 Interval history: sedated and paralyzed Exam Narrative: Exam Narrative: t max 38.6 core Const: General: no acute distress Other: appears ill Eyes: Sclera: sclerae normal Neck: Other: cvc Resp: Effort & Inspection: normal respiratory effort Auscultation: rales Cardio: Rate: regular rate Rhythm: regular rhythm Heart sounds: no murmurs GI: Other: no masses Urinary Catheter: Urinary Catheter: patent and draining and urine clear Skin: General skin exam: normal color and no rashes or lesions noted Objective Data Vital Signs Vital Signs: Vital Signs - 24 hr 04/02/20 15:16 04/02/20 15:19 04/02/20 15:44 Temperature 36.7 C Pulse Rate 113 H 131 H 125 H Respiratory Rate 28 H 28 H Blood Pressure 81/49 L 88/51 L Pulse Oximetry 96 04/02/20 16:26 04/02/20 17:33 04/02/20 17:38 Temperature 36.8 C Pulse Rate 128 H 127 H 123 H Respiratory Rate 28 H 28 H Blood Pressure 79/60 L Pulse Oximetry 85 L 94 86 L 04/02/20 17:49 04/02/20 17:50 04/02/20 17:51 Temperature Pulse Rate 133 H 133 H 133 H Respiratory Rate 28 H 28 H Blood Pressure 76/55 L Pulse Oximetry 04/02/20 18:36 04/02/20 18:45 04/02/20 19:34 Temperature Pulse Rate 133 H 131 H 152 H Respiratory Rate Blood Pressure 80/40 L 86/52 L Pulse Oximetry 94 04/02/20 19:44 04/02/20 20:00 04/02/20 20:33 Temperature 38.0 C H Pulse Rate 125 H 129 H 135 H Respiratory Rate 28 H 28 H Blood Pressure 86/52 L 76/38 L 84/64 L Pulse Oximetry 93 93 04/02/20 20:34 04/02/20 22:00 04/02/20 22:44 Temperature 38.6 C H Pulse Rate 136 H 135 H 130 H Respiratory Rate 26 H Blood Pressure 88/49 L Pulse Oximetry 96 95 96 04/02/20 22:52 04/02/20 23:16 04/03/20 00:00 Temperature 38.6 C H 37.7 C H Pulse Rate 126 H 126 H Respiratory Rate 28 H 28 H Blood Pressure 96/56 L Pulse Oximetry 94 94 04/03/20 00:16 04/03/20 00:29 04/03/20 01:00 Temperature 37.7 C H Pulse Rate 124 H 122 H Respiratory Rate Blood Pressure 88/54 L Pulse Oximetry 94 04/03/20 02:00 04/03/20 03:14 04/03/20 03:43 Temperature Pulse Rate 128 H 128 H 123 H Respiratory Rate 28 H Blood Pressure 102/58 L Pulse Oximetry 94 94 04/03/20 03:51 04/03/20 03:52 04/03/20 04:00 Temperature 37.0 C Pulse Rate 127 H 123 H 118 H Respiratory Rate 28 H 28 H Blood Pressure 101/64 Pulse Oximetry 93 04/03/20 05:14 04/03/20 05:15 04/03/20 06:00 Temperature Pulse Rate 117 H 115 H 115 H Respiratory Rate 28 H 28 H Blood Pressure 101/58 L Pulse Oximetry 92 95 94 04/03/20 08:00 04/03/20 08:17 04/03/20 09:22 Temperature 37.2 C 37.2 C Pulse Rate 100 111 H 97 Respiratory Rate 30 H 30 H 30 H Blood Pressure 125/77 125/77 Pulse Oximetry 96 95 95 04/03/20 09:51 04/03/20 09:53 04/03/20 10:13 Temperature Pulse Rate 102 H 104 H 108 H Respiratory Rate 30 H 30 H Blood Pressure 124/74 129/77 Pulse Oximetry 96 36 L 04/03/20 10:59 04/03/20 11:01 04/03/20 11:03 Temperature Pulse Rate 94 100 98 Respiratory Rate 30 H Blood Pressure 141/68 H 145/84 H Pulse Oximetry 04/03/20 11:07 04/03/20 11:21 04/03/20 11:22 Temperature Pulse Rate 95 91 91 Respiratory Rate 30 H Blood Pressure 145/84 H Pulse Oximetry 96 96 04/03/20 12:00 04/03/20 12:14 04/03/20 13:04 Temperature 37.1 C Pulse Rate
--- NOTE | 2020-04-03 16:10 | PC.NURSE ---
updated daughter Edwige on current condition.
[2020-04-03] MEDS: MORPHINE SULFATE INJ (*CRX) 10 MG/ML AMP 5 MG IV PUSH (18:25)
[2020-04-03] MEDS: LORazepam INJ (*CRX) 2 MG/ML VIAL IV PUSH (18:37)
--- NOTE | 2020-04-05 18:18 | PM.DDS ---
Discharge Sum: Prov Provider Primary care physician: Luis F Estrada MD Admitting provider: Bennie Catalan MD Consults: 03/25/20 13:46 Consult to Physician Routine Comment: DR. PAINTER ARAIZA Consulting Provider: Grant Gong director call/MD group to consult: DR. GONG Reason for consultation: Positive COVID-19, rule in patient for Actemra - EMPACTA trial Has provider been notified: Yes 04/02/20 Consult to Physician Routine Comment: OFFICE NOTIFIED OF CONSULT SPOKE WITH DAKSHA Consulting Provider: Jazmyn Maldonado director call/MD group to consult: Surgery Reason for consultation: Right Chest Tube for Pneumothorax Has provider been notified: Yes 04/03/20 Consult to Physician Routine Comment: Consulting Provider: Jazmyn Maldonado director call/ group to consult: Surgery Reason for consultation: Pneumothorax on Left. Request for CT Has provider been notified: Yes Discharge Sum: Diag Contributing Factors (1) Acute respiratory failure with hypoxia: (2) Shock: (3) Pneumonia due to COVID-19 virus: (4) Atrial fibrillation: (5) Essential (primary) hypertension: (6) Hyperlipidemia: Discharge Sum: Summary Date and Time Date of admission: 03/24/20 17:10 Date of : 04/03/20 Summary Details: Date of 04/03. Date of this dictation 04/05. I am dictating this summary on a patient that I would never saw or cared for during her hospitalization. Summary is taken entirely from the electronic medical records. The patient was an 84-year-old hypertensive female admitted with COVID pneumonia respiratory failure on 03/24/2022. She receive convalescent plasma been dexamethasone. Initially received from [facility] which was discontinued by Infectious Disease . She had steadily increasing oxygen requirements and was intubated and mechanically ventilated on 03/28. She was requiring 100% oxygen saturation and developed bilateral pneumothorax with chest tubes placed on the left 04/02 in the right 04/03. She grew Pseudomonas in her sputum but Infectious Disease felt this was colonization did not recommend treatment. She continued to have hypotension treated with pressors and atrial fibrillation treated with amiodarone. After discussion with the family they decided to proceed with comfort care on the late afternoon of the and shortly after mechanical ventilation was discontinued she Cause of respiratory failure from COVID pneumonia Additional Data Attending physician: Bennie Catalan MD
== END 2020-04-03 18:36 | disposition expired | DRG 207 ==
LOC: ANHED 15:27 → ANH3MEDSUR 17:58 → ANHICU 03-25 13:47 → ANH3MEDSUR 04-06 13:43 → ANHICU 04-06 13:43
PROVIDERS: Family Medicine; Internal Medicine; Admitting Provider Family Medicine; Emergency Provider Emergency Medicine; PCP Family Medicine; Visit Provider Internal Medicine
DX: U07.1 COVID-19 (principal); J12.82 Pneumonia due to coronavirus disease 2019; J96.01 Acute respiratory failure with hypoxia; R57.9 Shock, unspecified; J95.859 Other complication of respirator [ventilator]; Y84.8 Other medical procedures as the cause of abnormal reaction of the patient, or of later complication, without mention of misadventure at the time of the procedure; I48.91 Unspecified atrial fibrillation; I10 Essential (primary) hypertension; E78.5 Hyperlipidemia, unspecified; M41.9 Scoliosis, unspecified; Z66 Do not resuscitate; Z79.01 Long term (current) use of anticoagulants; Z79.899 Other long term (current) drug therapy; Z88.6 Allergy status to analgesic agent; Z95.2 Presence of prosthetic heart valve
CPT/HCPCS: 36415; 36430; 36569; 36600; 71045; 80048; 80053; 80069; 82375; 82728; 82805; 82948; 83050; 83605; 83615; 83735; 83880; 84100; 84443; 84460; 84484; 85025; 85027; 85055; 85380; 86140; 86900; 86901; 87040; 87070; 87077; 87086; 87088; 87186; 87205; 93005; 94002; 94003; 94640; 96374; 97161; 97165; 99213; 99291; A4248; A9270; C1729; C1751; C9113; J0171; J0282; J0692; J1100; J1650; J1815; J1940; J2060; J2250; J2270; J3010; J3480; J7030; J7050; J7060; P9047; P9059